=== PATIENT | female | born 1955 | race Caucasian/White ===

== ENCOUNTER → 2016-09-05 | Outpatient (CLI) | payer OTHER ==
[~2016-09-05] MED LIST: ACAR50TA9 PO; ASPI81TA28 PO; ATV5X PO; FURO40TA3 PO; GLC500 PO; GLUCTAB7 PO; HYDR-3419 PO; INSDGI SQ; LEVO25TA PO; LEVO50TA PO; MAGN400T6 PO; METO25TA56 PO; MULTTAB58 PO; OMEG12006 PO; OMEP20CA9 PO; PRM/45 PO; RMR15 PO; SIMV40TA4 PO; SITA50TA3 PO; SOTA160T PO; WARF5TAB90 PO; [UNRECOGNIZED DRUG - CODE] PO; lovaza PO
[2016-09-05 14:43] LABS: PROTHROMBIN TIME (PATIENT) 22.1 SECONDS (9.0-12.0)
== END | disposition home or self-care (01) ==
LOC: C.LAB1850 13:05
PROVIDERS: ATTEND Internal Medicine Cardiovascular Disease
DX: I48.0 Paroxysmal atrial fibrillation (principal)

== ENCOUNTER → 2017-05-09 | Outpatient (CLI) | payer OTHER ==
[2017-05-09 13:41] LABS: CHOLESTEROL/HDL RATIO 3.4
== END | disposition home or self-care (01) ==
LOC: C.LAB1850 10:14
PROVIDERS: ATTEND Internal Medicine Cardiovascular Disease
DX: E78.00 Pure hypercholesterolemia, unspecified (principal); I10 Essential (primary) hypertension; I48.91 Unspecified atrial fibrillation

== ENCOUNTER → 2017-05-19 | Outpatient (CLI) | payer OTHER ==
--- NOTE | 2017-05-20 07:41 | MAMMOGRAPHY REPORT ---
BILATERAL DIGITAL SCREENING MAMMOGRAM TOMOSYNTHESIS WITH CAD: 05/19/2017 CLINICAL HISTORY: Routine screening. Patient has no complaints. TECHNIQUE: Breast tomosynthesis in addition to standard 2D mammography was performed. Current study was also evaluated with a Computer Aided Detection (CAD) system. COMPARISON: Comparison is made to exams dated: 05/16/2016 mammogram, 09/14/2012 mammogram, 09/05/2011 ma mmogram - [facility], 05/09/2009, and 05/01/2009. BREAST COMPOSITION: There are scattered areas of fibroglandular density in both breasts. FINDINGS: There are scattered benign rim and punctate calcifications in the breasts. Stable intramam rusty lymph node in the right upper outer quadrant. No suspicious mass, architectural distortion or c luster of microcalcifications is seen. IMPRESSION: ACR BI-RADS CATEGORY 1: NEGATIVE There is no mammographic evidence of malignancy. A 1 year screening mammogram is recommended. The pa tient will receive written notification of the results. Approximately 10% of breast cancers are not detected with mammography. A negative mammographic report should not delay biopsy if a clinically suggestive mass is present. Luli Wiley M.D. ay/:05/19/2017 16:09:45 Call Or Contact Centre Manager: Sharee ONEAL(R)(Ann), [facility] letter sent: Normal 1/2 BI-RADS Code: ACR BI-RADS Category 1: Negative
== END | disposition home or self-care (01) ==
LOC: C.MAMM 14:04
PROVIDERS: ATTEND Physician Assistant
DX: Z12.31 Encounter for screening mammogram for malignant neoplasm of breast (principal)

== ENCOUNTER → 2017-05-23 | Outpatient (CLI) | payer OTHER ==
[2017-05-23 15:41] LABS: INR 2.7 (0.9-1.1); PROTHROMBIN TIME (PATIENT) 30.5 SECONDS (9.0-12.0)
== END | disposition home or self-care (01) ==
LOC: C.LAB1850 14:19
PROVIDERS: ATTEND Internal Medicine Cardiovascular Disease
DX: I48.91 Unspecified atrial fibrillation (principal)

== ENCOUNTER → 2017-07-29 | Outpatient (CLI) | payer OTHER ==
[~2017-07-29] MED LIST changes: +ACAR100T2 PO; -[UNRECOGNIZED DRUG - CODE] PO
[2017-07-29 13:20] LABS: INR 2.6 (0.9-1.1); PROTHROMBIN TIME (PATIENT) 26.3 SECONDS (9.0-12.0)
== END | disposition home or self-care (01) ==
LOC: C.LAB1850 12:15
PROVIDERS: ATTEND Internal Medicine Cardiovascular Disease
DX: I48.91 Unspecified atrial fibrillation (principal)

== ENCOUNTER → 2017-09-10 | Outpatient (CLI) | payer OTHER ==
[2017-09-10 16:49] LABS: INR 2.7 (0.9-1.1)
== END | disposition home or self-care (01) ==
LOC: C.LAB1850 15:49
PROVIDERS: ATTEND Internal Medicine Cardiovascular Disease
DX: I48.91 Unspecified atrial fibrillation (principal)

== ENCOUNTER → 2017-11-04 | Outpatient (CLI) | payer OTHER | END | disposition home or self-care (01) | LOC: C.LAB1850 11:01 | PROVIDERS: ATTEND Internal Medicine Cardiovascular Disease | DX: E78.00 Pure hypercholesterolemia, unspecified (principal); I10 Essential (primary) hypertension ==

== ENCOUNTER 2024-05-04 17:28 | Inpatient (IN) ==
--- NOTE | 2024-05-04 18:25 | CT Scan Report ---
CT head/brain wo con CLINICAL HISTORY: altered mental status Technique: Contiguous axial CT images of the head were acquired from the base of the skull to the zain arelis without intravenous contrast administration. Images were viewed in brain, subdural and bone [facility]. Automated dose lowering techniques and/or adjustment according to patient size were utilized for this exam. Comparison: Comparison is made to CT head 02/21/2024 Findings: The ventricles, basal cisterns, and cerebral sulci are normal. There is no acute intracranial hemorrh age or evidence of acute territorial infarction. Neither mass effect, shift of the midline structures , nor abnormal extra-axial fluid collections are shown. Focal encephalomalacia in the right parietal lobe is unchanged. Imaged portions of the paranasal sinuses and mastoid air cells are clear. The orbits appear normal. There are no acute fractures of the calvaria or scalp swelling. Impression: No acute intracranial hemorrhage, no evidence of acute territorial infarction or other acute intracra nial disease process. ACT 112: Negative or not required by law. Electronically signed by: Bandar Jay M.D. 05/04/2024 6:23 PM
[2024-05-04 18:36] LABS: Basophils # (auto) 0.07 K/uL (0.00-0.20); Eosinophils # (auto) 0.38 K/uL (0.00-0.50); Eosinophils % (auto) 5.4 %; Hematocrit (blood only) 42.2 % (37.0-47.0); Hemoglobin 13.6 g/dl (12.0-16.0); Immature Granulocytes # (auto) 0.02 K/uL (0.01-0.20); Immature Granulocytes % (auto) 0.3 %; Lymphocytes # (auto) 1.95 K/uL (1.20-3.40); Lymphocytes % (auto) 27.7 %; Mean Corpuscular Hgb Conc 32.2 g/dL (32.0-36.0); Mean Platelet Volume 11.4 fL (9.4-12.4); Monocytes # (auto) 0.45 K/uL (0.11-0.59); Monocytes % (auto) 6.4 %; Neutrophils # (auto) 4.18 K/uL (1.40-6.50); Neutrophils % (auto) 59.2 %; Platelet Count 207 K/uL (130-400); RDW Coefficient of Variation 14.1 % (11.5-14.5); RDW Standard Deviation 47.7 fL (36.4-46.3); Red Blood Count 4.54 M/uL (4.20-5.40); White Blood Count 7.05 K/ul (4.8-10.8)
--- NOTE | 2024-05-04 18:43 | XRay Report ---
XR chest 1V not portable CLINICAL HISTORY: AMS TECHNIQUE: Single frontal radiograph of the chest was obtained. Comparison: Comparison is made to chest radiograph 02/21/2024 FINDINGS: No lines and tubes are seen. Cardiomegaly is noted. The aortic arch is calcified. The lungs are clear . No evidence of pleural effusion or pneumothorax. IMPRESSION: No acute chest disease. Cardiomegaly is noted. ACT 112: Negative or not required by law. Electronically signed by: Bandar Jay M.D. 05/04/2024 6:41 PM
[2024-05-04 18:50] LABS: Alanine Aminotransferase 14 U/L (7-52); Albumin Globulin Ratio 1.8 (0.9-2); Albumin Level 4.6 gm/dl (3.4-5.0); Alkaline Phosphatase 85 U/L (34-104); Anion Gap 7 (3-11); Aspartate Aminotransferase 23 U/L (13-39); BUN Creatinine Ratio 27.2 (10-20); Bilirubin,Total 0.4 mg/dl (0.2-1.0); Blood Urea Nitrogen 25 mg/dl (6-23); Calcium 9.8 mg/dl (8.6-10.3); Carbon Dioxide 28 mmol/L (21-32); Chloride 103 mmol/L (98-107); Est GFR (African American) 72.6 ml/min; Est GFR (Non-African American) 62.6 ml/min; Globulin 2.5 gm/dl (2.5-4.0); Glucose 157 mg/dl (70-99(Fasting)); Potassium 5.1 mmol/L (3.5-5.1); Sodium 138 mmol/L (136-145); Total Protein 7.1 gm/dl (6.0-8.3)
[2024-05-04 19:03] LABS: INR 1.1 (0.9-1.1); Partial Thromboplastin Ratio 1.1; Partial Thromboplastin Time 30 Seconds (21-31); Prothrombin Time 11.5 Seconds (9.0-12.0)
--- NOTE | 2024-05-04 19:58 | Emergency Department Note ---
Impression & Plan AMS (altered mental status), Hallucinations ED Provider Note NAME: SANDRA LIVINGSTON AGE: 69 SEX: F : 1955 ARRIVES VIA: Walk-In INFORMANT: Patient, the patient's granddaughter ED PROVIDER(S): Paco Harry DO CHIEF COMPLAINT: Altered mental status HPI: The patient is a 69-year-old female who presented to the emergency department for an evaluation of altered mental status. The patient presented with her granddaughter. Apparently the patient's been having similar problems over the course the last several months but it seems to be worsening especially over the last week. Today the patient was walking around hallucinating. The patient has a history of a stroke. The patient has been compliant with her outpatient medications although her granddaughter is unsure if she is taking more than her usual prescribed doses. There is no reported vomiting or fever. There is been no reported chest pain or difficulty breathing. ROS: See above HPI for pertinent positives & negatives. A total of 10 systems reviewed and were otherwise negative. PAST MEDICAL HISTORY: See Below PAST SURGICAL HISTORY: See Below FAMILY HISTORY: See Below SOCIAL HISTORY: See Below HOME MEDICATIONS: See Below ALLERGIES: See Below VITALS: See Below PHYSICAL EXAMINATION: GENERAL: Patient is awake alert in no acute distress patient is resting comfortably and showing no signs of anxiety EYES: The conjunctivae are clear. The pupils are round and reactive. EARS, NOSE, MOUTH AND THROAT: The nose is without any evidence of any deformity. NECK: The neck is nontender and supple. RESPIRATORY: Normal respiratory effort is noted there is no evidence of wheezing rhonchi or rales CARDIOVASCULAR: Irregular heart sounds were noted to auscultation. There is no definite murmur. GASTROINTESTINAL: The abdomen is soft. Abdomen is nontender. MUSCULOSKELETAL/EXTREMITIES: There is no evidence of gross deformity full range of motion is noted in the hips and shoulders. SKIN: There is no obvious evidence of any rash. There are no petechiae, pallor or cyanosis noted. NEUROLOGIC: Patient is awake alert and oriented to person and place only. She is not oriented to time. She does recognize her granddaughter but is slow to produce her granddaughter's name. The patient has symmetric strength but it is diminished bilaterally. Speech was soft but clear. MEDICAL DECISION MAKING: The patient is a 69-year-old female who presented to the emergency department with family for an evaluation of altered mental status. It would appear the patient is most likely suffering from worsening dementia but over the last few days she has had some changes to her confusion. She is starting to have some hallucinations. This is a new finding for her. I discussed the patient's laboratory and radiographic studies with the family. They are very afraid for her safety as she normally manages herself at home. She gives herself her own medications. For this reason I discussed the patient's condition with the on- call [facility] hospitalist. They have agreed to evaluate the patient in the emergency department for further management and disposition. The patient did not appear to have signs of urinary tract infection. Vital signs are reassuring. Triage Nursing notes reviewed. Prior medical records reviewed Vital Signs: reviewed and remarkable for no significant abnormalities Differential diagnosis: Infection, hypoglycemia, electrolyte abnormalities, overdose, toxicologic, cardiac sources, intracerebral event, neurologic, trauma, as well as other pathologies. ER treatment provided: See below Diagnostics interpreted by me: ECG: EKG was obtained in the emergency department. My interpretation is atrial fibrillation at 62 bpm. There is no PVCs. Nonspecific ST segment abnormalities were noted with poor R wave progression. This was compared to a tracing from February 21, 2024. No changes were noted. Cardiac Monitoring: An order was placed for continuous cardiac monitoring. The monitor shows a rate of 61 bpm with atrial fibrillation. Laboratory studies: As stated above and show below. Imaging studies: See below. Radiographic imaging was reviewed by myself Consultation(s): I discussed this case with Dr. Kinney [facility]. Past Med/Surg History Problem List (Updated 05/05/24 @ 00:20 by Paco Harry DO) Hallucinations (Acute) AMS (altered mental status) (Acute) Confusion Chronic diastolic CHF (congestive heart failure) Stroke syndrome Microalbuminuria Encounter for health maintenance examination Migraines (Chronic) Acid reflux (Chronic) Anticoagulant long-term use (Chronic) Anxiety (Chronic) Atrial fibrillation (Chronic) Carpal tunnel syndrome (Chronic) Cognitive and behavioral changes (Chronic) Diabetes mellitus (Chronic) Tirso-neglect of left side (Chronic) History of right MCA stroke (Chronic) left sided tirso-neglect Hypercholesterolemia (Chronic) Hypertension (Chronic) Hypothyroidism (Chronic) Left-sided visual neglect (Chronic) Mitral insufficiency (Chronic) Mitral valve disorder (Chronic) Ureteral calculus (Chronic) Medical History Low hemoglobin Transaminitis Accidental overdose Depression Headache Stone, kidney Hallucination, visual Altered mental status Accidental drug ingestion Acute confusion Paronychia due to ingrown nail Ingrowing nail, right great toe CVA (cerebral vascular accident) CHF (congestive heart failure) Hypomagnesemia Shortness of breath CVA (cerebral vascular accident) Surgical History S/P wrist surgery Family History Mother Myocardial infarction Other FHx: heart disease FHx: hypertension Family history of diabetes mellitus Family history of kidney stones Denies family history of Ovarian cancer Prostate cancer Breast cancer Colorectal cancer Social History Smoking Status: Never smoker Second Hand Exposure: No; Hx Alcohol Use: No Hx Substance Use: No Preferred Language: Kosovan Communication Ability: Impaired Visual Impairment: No Limitations Hearing Ability: Normal [employer] Machine Operator Required: No Beliefs That Will Affect Care: None marital status: Current Living Situation: Alone current occupational status: retired Feels Safe at Home: Yes Childhood Exposure to Second-Hand Smoke: No Dental Care, Regularly: No Physical Activity Frequency: Does not Exercise Seatbelt Use: always Sunscreen Use: No Assistive Devices: Cane Allergies Allergies Allergy/AdvReac Type Severity Reaction Status Date / Time adhesive Allergy Intermediate LOCAL Verified 04/14/24 11:07 BLISTERS AND SKIN TEARING Home Meds Home Medications Medication Instructions Recorded Confirmed cholecalciferol (vitamin D3) 25 1,000 unit PO DAILY 03/01/19 05/04/24 mcg (1,000 unit) tablet fish oil-dha-epa 1,200 mg-144 1 cap PO AMHS 03/01/19 05/04/24 mg-216 mg capsule magnesium oxide 400 mg PO BID 03/01/19 05/04/24 aspirin 81 mg tablet,delayed 81 mg PO .DAILY @ NOON 12/17/20 05/04/24 release mirtazapine 15 mg tablet 15 mg PO HS 02/21/24 05/04/24 buspirone 7.5 mg tablet 7.5 mg PO AMHS 05/04/24 05/04/24 qcfhumtvamx-vrsdfaeeu-sgz C-Mn 1 cap PO BID 05/04/24 05/04/24 capsule (Glucosamine-Chondroitin Complex capsule) levothyroxine 50 mcg tablet 50 mcg PO DAILYBB 05/04/24 05/04/24 lisinopril 2.5 mg tablet 2.5 mg PO QAM 05/04/24 05/04/24 magnesium chloride 64 mg 64 mg PO BID 05/04/24 05/04/24 tablet,extended release metoprolol tartrate 100 mg tablet 100 mg PO AMHS 05/04/24 05/04/24 chrdnnre-xvrf-lmfi 8 mg-folic 400 1 tab PO .DAILY AT NOON 05/04/24 05/04/24 mcg-K 50 mcg-lutein 300 mcg tablet (Centrum Silver Women) pantoprazole 40 mg tablet,delayed 40 mg PO QAM 05/04/24 05/04/24 release sertraline 100 mg tablet 100 mg PO QPM 05/04/24 05/04/24 Previous Rx's Medication Instructions Recorded blood-glucose meter (Blood Glucose #1 ea 11/30/19 Monitoring kit) lancets (OneTouch UltraSoft #100 ea 04/09/22 Lancets) blood sugar diagnostic (Blood #100 ea 06/06/22 Glucose Test strips) pen needle, diabetic 31 gauge x #100 ea 07/31/2212/24" (Unifine Pentips Plus) apixaban 5 mg tablet (Eliquis) 5 mg PO BID #180 tabs 01/09/24 metformin 500 mg tablet 500 mg PO BID #60 tabs 02/03/24 simvastatin 40 mg tablet 40 mg PO HS #90 tabs 03/02/24 Results & Data (ED) Vital Signs Vital Signs - 24 hr 05/04/24 17:40 05/04/24 20:00 05/04/24 20:09 Temperature 36.2 C L Temperature Source Temporal Artery Scan Pulse Rate 76 62 Pulse Rate [Apical] 59 L Pulse Rhythm [Apical] Pulse Strength [Apical] Respiratory Rate 14 20 Respiratory Effort / Characteristics Non-Labored Spontaneous Respiratory Depth Normal Respiratory Pattern Regular Blood Pressure 147/80 H Blood Pressure [Left Arm] 117/88 Blood Pressure Mean 102 Blood Pressure Mean [Left Arm] 97 Blood Pressure Position [Left Arm] Sitting Pulse Oximetry 97 99 Oxygen Delivery Method Room Air Room Air Sepsis Recent Fever Within 48 Hours No Sepsis New/Unexplained Change in Mental Status Yes Sepsis Action Taken by Nursing No Action Required 05/04/24 20:59 Temperature Temperature Source Pulse Rate Pulse Rate [Apical] 61 Pulse Rhythm [Apical] Regular Pulse Strength [Apical] Normal Respiratory Rate 16 Respiratory Effort / Characteristics Non-Labored Spontaneous Respiratory Depth Normal Respiratory Pattern Regular Blood Pressure Blood Pressure [Left Arm] 135/74 Blood Pressure Mean Blood Pressure Mean [Left Arm] 94 Blood Pressure Position [Left Arm] Lying Pulse Oximetry 98 Oxygen Delivery Method Room Air Sepsis Recent Fever Within 48 Hours Sepsis New/Unexplained Change in Mental Status Sepsis Action Taken by Longterm Medications Current Medication List: was personally reviewed by me Laboratory Data Attestation: I reviewed the patient's lab results. 05/04/24 18:00 05/04/24 18:00 Lab Results 05/04/24 05/04/24 05/04/24 Range/Units 17:47 18:00 19:59 WBC 7.05 (4.8-10.8) K/ul RBC 4.54 (4.20-5.40) M/uL Hgb 13.6 (12.0-16.0) g/dl Hct 42.2 (37.0-47.0) % MCV 93.0 (80.0-100.0) fL MCH 30.0 (25.0-34.0) pg MCHC 32.2 (32.0-36.0) g/dL RDW Std Deviation 47.7 H (36.4-46.3) fL RDW Coeff of Katt 14.1 (11.5-14.5) % Plt Count 207 (130-400) K/uL MPV 11.4 (9.4-12.4) fL Immature Gran % (Auto) 0.3 % Neut % (Auto) 59.2 % Lymph % (Auto) 27.7 % [place] % (Auto) 6.4 % Eos % (Auto) 5.4 % Baso % (Auto) 1.0 % Neut # (Auto) 4.18 (1.40-6.50) K/uL Lymph # (Auto) 1.95 (1.20-3.40) K/uL [place] # (Auto) 0.45 (0.11-0.59) K/uL Eos # (Auto) 0.38 (0.00-0.50) K/uL Baso # (Auto) 0.07 (0.00-0.20) K/uL Immature Gran # (Auto) 0.02 (0.01-0.20) K/uL PT 11.5 (9.0-12.0) Seconds INR 1.1 (0.9-1.1) APTT 30 (21-31) Seconds PTT Ratio 1.1 Sodium 138 (136-145) mmol/L Potassium 5.1 (3.5-5.1) mmol/L Chloride 103 (98-107) mmol/L Carbon Dioxide 28 (21-32) mmol/L Anion Gap 7 (3-11) BUN 25 H (6-23) mg/dl Creatinine 0.92 (0.6-1.2) mg/dl Est Cr Clr Drug Dosing Not Reportable Est GFR ( Amer) 72.6 ml/min Est GFR (Non-Af Amer) 62.6 ml/min BUN/Creatinine Ratio 27.2 H (10-20) Glucose 157 H (70-99(Fasting)) mg/dl POC Glucose 155 H (70-99) mg/dl Calcium 9.8 (8.6-10.3) mg/dl Total Bilirubin 0.4 (0.2-1.0) mg/dl AST 23 (13-39) U/L ALT 14 (7-52) U/L Alkaline Phosphatase 85 (34-104) U/L Total Protein 7.1 (6.0-8.3) gm/dl Albumin 4.6 (3.4-5.0) gm/dl Globulin 2.5 (2.5-4.0) gm/dl Albumin/Globulin Ratio 1.8 (0.9-2) Urine Color Yellow Urine Appearance Clear (Clear) Urine pH 6.5 (4.5-7.5) Ur Specific [place] 1.017 (1.000-1.030) Urine Protein Negative (Negative) Urine Glucose (UA) Negative (Negative) Urine Ketones Negative (Negative) Urine Blood Negative (Negative) Urine Nitrite Negative (Negative) Urine Bilirubin Negative (Negative) Urine Urobilinogen Negative (Negative) Ur Leukocyte Esterase Trace H (Negative) Urine WBC (Auto) 0-5 (0-5) /hpf Urine RBC (Auto) 0-2 (0-2) /hpf U Hyaline Cast (Auto) 0-2 (0-2) /lpf U Epithel Cells (Auto) 0-2 (0-2) /hpf Urine Bacteria (Auto) None Seen (None Seen) Administered Medications Discontinued Medications Gadobutrol (Gadobutrol 65ml Vial) 8 ml IV ONCE ONE Stop: 05/04/24 23:44 Last Admin: 05/04/24 23:43 Dose: 8 ml Documented By: EKTA Ioversol (Optiray 320 125ml) 119 ml IV ONCE ONE Stop: 05/04/24 23:14 Last Admin: 05/04/24 23:14 Dose: 119 ml Documented By: SPIKE Lorazepam (Lorazepam 0.5 Mg Tab) 0.5 mg PO NOW STA Stop: 05/04/24 22:10 Last Admin: 05/04/24 22:55 Dose: 0.5 mg Documented By: Imaging Data Attestation: I personally reviewed and interpreted this imaging study as follows: My Impression: 1 view chest x-ray was obtained in the emergency department. My interpretation was no free air or definite infiltrate, final report below. CT the brain was obtained in the emergency department. My interpretation is no intracranial hemorrhage or mass effect, final report below. Radiologist's Impression: Chest X-Ray 05/04/24 17:48 XR chest 1V not portable CLINICAL HISTORY: AMS TECHNIQUE: Single frontal radiograph of the chest was obtained. Comparison: Comparison is made to chest radiograph 02/21/2024 FINDINGS: No lines and tubes are seen. Cardiomegaly is noted. The aortic arch is calcified. The lungs are clear. No evidence of pleural effusion or pneumothorax. IMPRESSION: No acute chest disease. Cardiomegaly is noted. ACT 112: Negative or not required by law. Electronically signed by: Bandar Jay M.D. 05/04/2024 6:[address] 05/04/24 17:48 CT head/brain wo con CLINICAL HISTORY: altered mental status Technique: Contiguous axial CT images of the head were acquired from the base of the skull to the vertex without intravenous contrast administration. Images were viewed in brain, subdural and bone windows. Automated dose lowering techniques and/or adjustment according to patient size were utilized for this exam. Comparison: Comparison is made to CT head 02/21/2024 Findings: The ventricles, basal cisterns, and cerebral sulci are normal. There is no acute intracranial hemorrhage or evidence of acute territorial infarction. Neither mass effect, shift of the midline structures, nor abnormal extra-axial fluid collections are shown. Focal encephalomalacia in the right parietal lobe is unchanged. Imaged portions of the paranasal sinuses and mastoid air cells are clear. The orbits appear normal. There are no acute fractures of the calvaria or scalp swelling. Impression: No acute intracranial hemorrhage, no evidence of acute territorial infarction or other acute intracranial disease process. ACT 112: Negative or not required by law. Electronically signed by: Bandar Jay M.D. 05/04/2024 6:23 PM Discharge Plan Visit Data Chief Complaint: Confusion Stated Complaint: CONFUSION, DEHYDRATED ED Provider: Paco Harry Discharge Problem: AMS (altered mental status), Hallucinations Patient Disposition: Being Evaluated by Hospitalist Discharge Instructions Interventions: ED Discharge Assessment Last Done: 05/04/24 23:02 Discharge Problem: AMS (altered mental status) Qualifiers: Altered mental status type: unspecified Qualified Code(s): R41.82 - Altered mental status, unspecified
[2024-05-04 20:11] LABS: Appearance Urine Clear (Clear); Bacteria Urine Automated None Seen (None Seen); Bilirubin Urine Negative (Negative); Blood Urine Negative (Negative); Cast Urine Automated 0-2 /lpf (0-2); Color Urine Yellow; Epithelial Cell Urine Auto 0-2 /hpf (0-2); Glucose Urine UA Negative (Negative); Ketones Urine Negative (Negative); Leukocyte Esterase Urine Trace (Negative); Nitrite Urine Negative (Negative); Protein Urine Negative (Negative); RBC Urine Automated 0-2 /hpf (0-2); Specific Gravity Urine 1.017 (1.000-1.030); Urobilinogen Urine Negative (Negative); WBC Urine Automated 0-5 /hpf (0-5); pH Urine 6.5 (4.5-7.5)
--- NOTE | 2024-05-04 20:52 | History & Physical Report ---
Date of Service May 04, 2024 Assessment & Plan (1) Confusion: Plan: Likely progressive dementia vs polypharamacy/accidental overdose of home medications. Stroke scale - 1. Will complete stroke r/o - MRI Brain with/without and MRA Head and Neck with/without. With history of stroke and memory issues there is likely an underlying dementia. Patient on multiple mood medications - sertraline, mirtazpine, buspar. Accidentally taking more of these meds than prescribed could explain symptoms. Patient may require more assistance than she currently has as she lives alone. Family would like to discuss possible placement, but have not discussed this with the patient. PT/OT, CM consult stroke r/o ordered minimize polypharmacy if able (2) Cognitive and behavioral changes: Plan: See above (3) Diabetes mellitus: Plan: On metformin 500 mg BID. Last HbA1c from 04/2023 - 6.3. Recheck. Will do SSI insulin while inpatient. No basal dosing ordered - can add if persistently elevated. AM HbA1c (4) History of right MCA stroke: Plan: Has residual left sided hemineglect. No change from baseline. Continue ASA and statin therapy. AM lipids ordered. AM lipids, HbA1c Plan Anxiety: continue home meds, - buspar, sertraline, mirtazapine A fib: continue metoprolol, apixaban Hypothyroidism: continue levothyroxine GERD: continue pantoprazole HTN: patient on lisinopril 2.5 mg for HTN, continue for now Code status: full, did discuss with patient, but she was unsure about her wishes, once less confused would repeat code status discussion DVT ppx: Mu MO: Heart Healthy after passes dysphagia screen, IVF NSS @ 80 mL/hr x 1 L Dispo: Tele unit History of Present Illness Primary Care Provider: Keanu Lindo MD 69 y/o with a PMHx of right CVA with left sided deficits, anxiety, hypothyroidism, DM, and a fib brought here by family for worsening confusion. Patient with increased memory issues and hallucinations over the last week. Found wandering outside looking for her granddaughter, but thinking of her as a small child. Has also been seeing her who 4 years ago. Patient does not report these to me during our interview. She is unsure why she was brought in to the hospital and would like to go home. Patient lives alone and family is involved, but no one can be with her all of the time. Patient has been admitted previously for accidental overdose as she will take her medications inappropriately. She does have the pill packs, but she may still be taking more of her medication than prescribed. Patient denies any fevers, chills, CP, SOB, abdominal pain, headaches, vision changes, nausea/vomiting, constipation, dysuria, urinary frequency. The granddaughter reports that she has long standing left sided weakness as a sequelae of her prior stroke. No new neurological deficits. Does have memory issues, but believes that the hallucinations are relatively new. Is concerned that she took more of her medicine than she should have. Allergies Allergy/AdvReac Type Severity Reaction Status Date / Time adhesive Allergy Intermediate LOCAL Verified 04/14/24 11:07 BLISTERS AND SKIN TEARING Home Medications Medication Instructions Recorded Confirmed Type cholecalciferol (vitamin D3) 25 1,000 unit PO DAILY 03/01/19 05/04/24 History mcg (1,000 unit) tablet fish oil-dha-epa 1,200 mg-144 1 cap PO AMHS 03/01/19 05/04/24 History mg-216 mg capsule magnesium oxide 400 mg PO BID 03/01/19 05/04/24 History blood-glucose meter (Blood Glucose #1 ea 11/30/19 05/04/24 Rx Monitoring kit) aspirin 81 mg tablet,delayed 81 mg PO .DAILY @ NOON 12/17/20 05/04/24 History release lancets (OneTouch UltraSoft #100 ea 04/09/22 05/04/24 Rx Lancets) blood sugar diagnostic (Blood #100 ea 06/06/22 05/04/24 Rx Glucose Test strips) pen needle, diabetic 31 gauge x #100 ea 07/31/22 05/04/24 Rx 5/16" (Unifine Pentips Plus) apixaban 5 mg tablet (Eliquis) 5 mg PO BID #180 tabs 01/09/24 05/04/24 Rx metformin 500 mg tablet 500 mg PO BID #60 tabs 02/03/24 05/04/24 Rx mirtazapine 15 mg tablet 15 mg PO HS 02/21/24 05/04/24 History simvastatin 40 mg tablet 40 mg PO HS #90 tabs 03/02/24 05/04/24 Rx buspirone 7.5 mg tablet 7.5 mg PO AMHS 05/04/24 05/04/24 History hiaaxpkowmp-mrwyfoarf-amn C-Mn 1 cap PO BID 05/04/24 05/04/24 History capsule (Glucosamine-Chondroitin Complex capsule) levothyroxine 50 mcg tablet 50 mcg PO DAILYBB 05/04/24 05/04/24 History lisinopril 2.5 mg tablet 2.5 mg PO QAM 05/04/24 05/04/24 History magnesium chloride 64 mg 64 mg PO BID 05/04/24 05/04/24 History tablet,extended release metoprolol tartrate 100 mg tablet 100 mg PO AMHS 05/04/24 05/04/24 History ygmolbwh-ijzh-jtwt 8 mg-folic 400 1 tab PO .DAILY AT NOON 05/04/24 05/04/24 History mcg-K 50 mcg-lutein 300 mcg tablet (Centrum Silver Women) pantoprazole 40 mg tablet,delayed 40 mg PO QAM 05/04/24 05/04/24 History release sertraline 100 mg tablet 100 mg PO QPM 05/04/24 05/04/24 History Past Med/Surg History Problem List (Updated 05/05/24 @ 00:20 by Paco Harry DO) Hallucinations (Acute) AMS (altered mental status) (Acute) Confusion Chronic diastolic CHF (congestive heart failure) Stroke syndrome Microalbuminuria Encounter for health maintenance examination Migraines (Chronic) Acid reflux (Chronic) Anticoagulant long-term use (Chronic) Anxiety (Chronic) Atrial fibrillation (Chronic) Carpal tunnel syndrome (Chronic) Cognitive and behavioral changes (Chronic) Diabetes mellitus (Chronic) Tirso-neglect of left side (Chronic) History of right MCA stroke (Chronic) left sided tirso-neglect Hypercholesterolemia (Chronic) Hypertension (Chronic) Hypothyroidism (Chronic) Left-sided visual neglect (Chronic) Mitral insufficiency (Chronic) Mitral valve disorder (Chronic) Ureteral calculus (Chronic) Medical History Low hemoglobin Transaminitis Accidental overdose Depression Headache Stone, kidney Hallucination, visual Altered mental status Accidental drug ingestion Acute confusion Paronychia due to ingrown nail Ingrowing nail, right great toe CVA (cerebral vascular accident) CHF (congestive heart failure) Hypomagnesemia Shortness of breath CVA (cerebral vascular accident) Surgical History S/P wrist surgery Family History Mother Myocardial infarction Other FHx: heart disease FHx: hypertension Family history of diabetes mellitus Family history of kidney stones Denies family history of Ovarian cancer Prostate cancer Breast cancer Colorectal cancer Social History Smoking Status: Never smoker Second Hand Exposure: No; Do You Dip or Chew Tobacco: No; Hx Alcohol Use: No Hx Substance Use: No Preferred Language: Palauan Communication Ability: Effective Visual Impairment: No Limitations Hearing Ability: Normal Automatic Vulcanizing Lead Operator Required: No Beliefs That Will Affect Care: None marital status: Current Living Situation: Alone current occupational status: retired Other Information That Helps Us Care for You: No Feels Safe at Home: Yes Safety Concerns: Feels Safe At This Time Childhood Exposure to Second-Hand Smoke: No Dental Care, Regularly: No Physical Activity Frequency: Does not Exercise Seatbelt Use: always Sunscreen Use: No Assistive Devices: Cane and Glasses Review of Systems 2 Review of Systems: See HPI Physical Exam 2 Physical Exam: Gen: well appearing patient in NAD HEENT: AT NC MMM Resp: CTAB no wheezing no increased work of breathing CV: RRR no m/r/g clinically well perfused, no peripheral edema Abd: +BS soft, non-tender, non-distended MSK: no obvious deformities Skin: no rashes or bruising Neuro: alert and oriented Psych: appropriate mood and affect Results & Data Results & Data Vital Signs (Past 12 Hours) Vital Signs Temp Pulse Pulse Resp BP BP Pulse Ox 05/04/24 20:09 62 05/04/24 20:00 59 L 20 117/88 99 05/04/24 17:40 36.2 C L 76 14 147/80 H 97 O2 Del Method 05/04/24 20:09 05/04/24 20:00 Room Air 05/04/24 17:40 Room Air Laboratory Results 05/04/24 18:00 05/04/24 18:00 Diagnostic Findings Chest X-Ray 05/04/24 17:48 FINDINGS: No lines and tubes are seen. Cardiomegaly is noted. The aortic arch is calcified. The lungs are clear. No evidence of pleural effusion or pneumothorax. IMPRESSION: No acute chest disease. Cardiomegaly is noted. Head CT 05/04/24 17:48 Findings: The ventricles, basal cisterns, and cerebral sulci are normal. There is no acute intracranial hemorrhage or evidence of acute territorial infarction. Neither mass effect, shift of the midline structures, nor abnormal extra-axial fluid collections are shown. Focal encephalomalacia in the right parietal lobe is unchanged. Imaged portions of the paranasal sinuses and mastoid air cells are clear. The orbits appear normal. There are no acute fractures of the calvaria or scalp swelling. Impression: No acute intracranial hemorrhage, no evidence of acute territorial infarction or other acute intracranial disease process. Supervising Physician Co-Signing Physician Notes Attending addendum: I have physically seen this patient, have supervised the medical residents activities, and agree with the H&P unless as otherwise noted. Assessment and Plan: Altered mental status/confusion/hallucinations- Potential contributing factors including not limited to: Progressive dementia, polypharmacy accidental overdose on medications, TIA versus stroke CT scan head negative Order MRI studies as noted Consult PT/OT Stroke without tPA order set Diabetes mellitus- Hold metformin Most recent hemoglobin A1c of 05/03 was 6.3 Placed on Accu-Cheks log SSI Check hemoglobin A1c in the morning History of right MCA CVA/left-sided hemineglect- At baseline Continue aspirin Atrial fibrillation/hypertension- Admit to monitored bed Continue apixaban, metoprolol Hold lisinopril due to potassium of 5.1 NSS at 80 mL/h x 1 L Recheck laboratories in a.m. Resident Activity Tracking Resident Involvement: Resident Care Provided Care Provided: Adult Hospital Medicine
[2024-05-04] MEDS: LORazepam 0.5 MG TAB PO STA (22:55)
[2024-05-04] MEDS: OPTIRAY 320 125ml IV ONE (23:14)
[2024-05-04] MEDS: GADOBUTROL 65ML VIAL IV ONE (23:43)
[2024-05-05] MEDS ORDERED: GLUCOSE 40% GEL 15 GM TUBE PO PRN (00:14)
[2024-05-05] MEDS ORDERED: DEXTROSE 50% 50 ML SYRINGE IV PRN (00:14)
[2024-05-05] MEDS ORDERED: CARBOHYDRATES FOR HYPOGLYCEMIA PO PRN (00:14)
[2024-05-05] MEDS ORDERED: GLUCOSE 10 TAB/TUBE PO PRN (00:14)
[2024-05-05] MEDS ORDERED: GLUCAGON FOR INJ 1 MG VIAL SQ PRN (00:14)
[2024-05-05] MEDS: SODIUM CHLORIDE 0.9% 1,000 ML IV SCH (00:58)
[2024-05-05] MEDS: APIXABAN 5 MG TABLET PO ONE (01:04)
[2024-05-05] MEDS: ACETAMINOPHEN 500 MG TAB PO PRN (01:04)
--- NOTE | 2024-05-05 01:48 | CT Scan Report ---
Exam(s): CTA HEAD W/WO Contrast IV Amt: 119ml optiray 320 EXAM: CT Angiography Head Without and With Intravenous Contrast CLINICAL HISTORY: Reason for exam: r/o stroke. TECHNIQUE: Axial computed tomographic angiography images of the head without and with intravenous contrast. CTDI is 20 mGy and DLP is 516.47 mGy-cm. Automated exposure control was utilized for the study. A dose lowering technique was utilized adhering to the principles of ALARA. MIP reconstructed images were created and reviewed. CONTRAST: Patient received 119ml optiray 320 of IV contrast COMPARISON: No relevant prior studies available. FINDINGS: VASCULATURE: The dural venous sinuses are patent. Right internal carotid artery: No acute findings. Intracranial segment is patent with no significant stenosis. No aneurysm. Right anterior cerebral artery: Unremarkable. No occlusion or significant stenosis. No aneurysm. Right middle cerebral artery: Unremarkable. No occlusion or significant stenosis. No aneurysm. Right posterior cerebral artery: Unremarkable. No occlusion or significant stenosis. No aneurysm. Right vertebral artery: Unremarkable as visualized. Left internal carotid artery: No acute findings. Intracranial segment is patent with no significant stenosis. No aneurysm. Left anterior cerebral artery: Unremarkable. No occlusion or significant stenosis. No aneurysm. Left middle cerebral artery: Unremarkable. No occlusion or significant stenosis. No aneurysm. Left posterior cerebral artery: Unremarkable. No occlusion or significant stenosis. No aneurysm. Left vertebral artery: Unremarkable as visualized. Basilar artery: Unremarkable. No occlusion or significant stenosis. No aneurysm. HEAD: Brain: No acute findings. Remote ischemic injury of the right frontal, temporal and parietal lobes with encephalomalacia and gliosis. No hemorrhage. No edema. Normal enhancement. Ventricles: Unremarkable. No ventriculomegaly. Bones/joints: No acute fracture. Soft tissues: Unremarkable. Sinuses: Unremarkable as visualized. No acute sinusitis. Mastoid air cells: Unremarkable as visualized. No mastoid effusion. IMPRESSION: Negative CT angiogram of the head. Electronically signed by: Love Quintero MD 05/05/24 01:47 AM
--- NOTE | 2024-05-05 01:54 | CT Scan Report ---
Exam(s): CTA NECK W/WO Contrast IV Amt: 119ml optiray 320 EXAM: CT Angiography Neck With Intravenous Contrast CLINICAL HISTORY: Reason for exam: r/o stroke. TECHNIQUE: Routine carotid CT angiography protocol was performed with intravenous contrast. NASCET criteria using the distal ICAs for comparison were used for evaluation of stenoses. CTDI is 37.37 mGy and DLP is 18.68 mGy-cm. Automated exposure control was utilized for the study. A dose lowering technique was utilized adhering to the principles of ALARA. MIP reconstructed images were created and reviewed. CONTRAST: Patient received 119ml optiray 320 of IV contrast COMPARISON: None. FINDINGS: VASCULATURE: Ectasia of the ascending aorta measuring 34.6 mm in diameter. Right common carotid artery: Unremarkable. No occlusion or significant stenosis. No dissection. Right internal carotid artery: Unremarkable. Extracranial segment is patent with no occlusion or significant stenosis. No dissection. Right external carotid artery: Unremarkable. No occlusion. Right vertebral artery: Unremarkable. No occlusion or significant stenosis. No dissection. Left common carotid artery: Unremarkable. No occlusion or significant stenosis. No dissection. Left internal carotid artery: Unremarkable. Extracranial segment is patent with no occlusion or significant stenosis. No dissection. Left external carotid artery: Unremarkable. No occlusion. Left vertebral artery: Unremarkable. No occlusion or significant stenosis. No dissection. NECK: Bones/joints: Unremarkable. No acute fracture. Soft tissues: Prominent mediastinal and hilar lymph nodes. Prominent cervical lymph nodes. Lung apices: Bronchitis with pneumonitis and mosaic type pattern of pulmonary opacities. CAROTID STENOSIS REFERENCE USING NASCET CRITERIA: % ICA stenosis = (1 - narrowest ICA diameter/diameter of distal cervical ICA) x 100. Mild - <50% stenosis. Moderate - 50-69% stenosis. Severe - 70-94% stenosis. Near occlusion - 95-99% stenosis. Occluded - 100% stenosis. IMPRESSION: Negative CTA neck. Electronically signed by: Love Quintero MD 05/05/24 01:53 AM
--- NOTE | 2024-05-05 02:05 | Magnetic Resonance Report ---
Exam(s): MRI HEAD W/WO Contrast IV Amt: 8cc gadavist EXAM: MR Head Without and With Intravenous Contrast CLINICAL HISTORY: Reason for exam: stroke r/o. TECHNIQUE: Magnetic resonance images of the head/brain without and with intravenous contrast in multiple planes. CONTRAST: Patient received 8cc gadavist of IV contrast COMPARISON: Prior head CT from May 04, 2024. FINDINGS: Brain: Remote ischemic injury of the right temporal, and occipital lobes with encephalomalacia and gliosis. Remote ischemic injury of the right cerebellum. Mild nonspecific white matter changes. The flow voids at the base of the brain are intact. No mass. No hemorrhage. No acute infarct. No evidence of abnormal enhancement. The dural venous sinuses are patent. Ventricles: Unremarkable. No ventriculomegaly. Bones/joints: Unremarkable. No acute fracture. Sinuses: Chronic ethmoid sinusitis. No acute sinusitis. Mastoid air cells: Unremarkable as visualized. No mastoid effusion. Orbits: Bilateral lens replacements. IMPRESSION: No evidence of acute intracranial pathology. Electronically signed by: Love Quintero MD 05/05/24 02:04 AM
[2024-05-05] MEDS: LEVOTHYROXINE SODIUM 50 MCG TABLET PO SCH (05:44)
--- NOTE | 2024-05-05 06:05 | Billing Data ---
Date of Service May 05, 2024 Coding Level of Care Code 14064 INT INP/OBS CARE
[2024-05-05 07:18] LABS: BUN Creatinine Ratio 24.1 (10-20); Calcium 8.9 mg/dl (8.6-10.3); Chol HDL Ratio 2.5 (0-5); Creatinine Clr Calc Pharmacy 71.9 ml/min; Est GFR (African American) 87.3 ml/min; Est GFR (Non-African American) 75.3 ml/min; Potassium 4.6 mmol/L (3.5-5.1)
[2024-05-05 07:24] LABS: Hematocrit (blood only) 35.6 % (37.0-47.0); Mean Corpuscular Hemoglobin 30.4 pg (25.0-34.0); Mean Corpuscular Hgb Conc 33.7 g/dL (32.0-36.0); Mean Corpuscular Volume 90.1 fL (80.0-100.0); Mean Platelet Volume 11.4 fL (9.4-12.4); Platelet Count 177 K/uL (130-400); RDW Standard Deviation 46.6 fL (36.4-46.3); Red Blood Count 3.95 M/uL (4.20-5.40); White Blood Count 5.92 K/ul (4.8-10.8)
[2024-05-05 07:46] LABS: Estimated Average Glucose 151 mg/dl; Hemoglobin A1C 6.9 % (4.5-5.6)
[2024-05-05] MEDS ORDERED: lisinopril 2.5 MG TAB PO SCH (09:00)
[2024-05-05] MEDS: MAGNESIUM OXIDE 400 MG TAB PO SCH (09:36)
[2024-05-05] MEDS: busPIRone 7.5 MG TAB PO SCH (09:36)
[2024-05-05] MEDS: APIXABAN 5 MG TABLET PO SCH (09:36)
[2024-05-05] MEDS: PANTOprazole 40 MG TAB PO SCH (09:37)
[2024-05-05] MEDS: METOPROLOL TARTRATE 100 MG TAB PO SCH (09:37)
[2024-05-05] MEDS: MAGNESIUM CHLORIDE W/CALCIUM 64MG DELAYED REL TAB PO SCH (09:38)
[2024-05-05] MEDS: INSULIN ASPART PER UNIT CHARGE SC SCH (09:44)
[2024-05-05] MEDS: ASPIRIN 81 MG ECTAB PO SCH (12:09)
--- NOTE | 2024-05-05 16:11 | Hospitalist Progress Note ---
Date of Service May 05, 2024 Assessment & Plan (1) Confusion: Plan: Presented with increased confusion and hallucinations over the week leading to admission. She was found wandering outside looking for her granddaughter and said that she saw her to 4 years ago. - Suspect this acute confusion is secondary to polypharmacy/accidental overdose of home medications. Patient's daughter reports that the patient misses doses and/or doubles doses of her medications by accident. - She does take multiple mood medicationssertraline, mirtazapine, BuSpar. Accidentally taking more of these medications and prescribed could explain her symptoms. - Brain MRI, head CT, head and neck CTAs, CXR all unremarkable. Lipid panel WNL. - Patient's acute confusion has resolved, fully alert and oriented at this time. - PT/OT recommending rehab. - Minimize polypharmacy if able. (2) Cognitive and behavioral changes: Plan: See above (3) Diabetes mellitus: Plan: On metformin 500 mg BID at home. - Hgb A1c 6.9% on 05/05 - SI insulin while inpatient. No basal dosing ordered - can add if persistently elevated. (4) History of right MCA stroke: Plan: Has residual left sided hemineglect. No change from baseline. - Continue ASA and statin therapy. - Lipid panel WNL Plan Updated daughter via phone call Updated granddaughter via phone call and at bedside Discussed discharge planning with case management Anxiety: continue home meds, - buspar, sertraline, mirtazapine A fib: continue metoprolol, apixaban Hypothyroidism: continue levothyroxine GERD: continue pantoprazole HTN: patient on lisinopril 2.5 mg for HTN, continue for now Code status: full, did discuss with patient, but she was unsure about her wishes, once less confused would repeat code status discussion DVT ppx: Eliquis Admission and Anticipated Discharge Date Admission Date: May 04, 2024 Subjective Patient seen and evaluated at bedside. She reports feeling "much clearer" today compared to yesterday. She is alert and oriented to person, place, time, event at this time. She reports that she was very confused yesterday, having hallucinations that people on the TV were talking with her. We discussed that I suspect her acute confusion was secondary to polypharmacy, as the confusion is lifted quickly after correct medications have been provided. We also discussed her workup from admission. I called both her daughter and her granddaughter to provide updates via phone call, and then met with the granddaughter at bedside in the afternoon. Daughter reports that the patient misses doses of medicine and/or will double her doses of medication at home. Family is agreeable to rehab if that is what is recommended by PT/OT. Physical Exam Physical Exam: General: No acute distress, nondiaphoretic, well-developed, well-nourished. Skin: The skin was without rashes, erythema, edema, or bruising. Cardiac: Irregularly irregular in the 70s. No murmurs, gallops or rubs appreciated. Pulm: Clear to auscultation bilaterally without wheezes, rales or rhonchi. No respiratory distress. 98% on room air. Abdominal: Soft, nontender, nondistended. Bowel sounds present. Neuro: A&O x4. No focal neurological deficits. Results & Data Results & Data Vital Signs (Past 12 Hours) Vital Signs Temp Pulse Pulse Resp BP Pulse Ox O2 Del Method 05/05/24 15:58 97.3 F L 79 18 138/77 98 Room Air 05/05/24 14:40 79 05/05/24 11:20 97.9 F 65 16 129/76 99 Room Air 05/05/24 07:35 97.5 F L 53 L 18 136/85 99 Room Air 05/05/24 07:20 58 L Laboratory Results Reviewed CBC Reviewed chemistries Reviewed UA Diagnostic Findings Reviewed head and neck CTA Reviewed brain MRI Reviewed head CT Reviewed chest x-ray PG Care Time/CCT Total # of Minutes Spent Total Time Spent with Patient: Total time spent is greater than 50% in coordination of care (as documented) at patient's floor/unit and/or counseling patient: Coding Level of Care Code 17652 SUB INP/OBS CARE 3/50MIN Diagnoses Confusion R41.0 Cognitive and behavioral changes R41.89; R46.89 Diabetes mellitus E11.9 History of right MCA stroke Z86.73
[2024-05-05] MEDS: SERTRALINE HCL 100 MG TABLET PO SCH (21:05)
[2024-05-05] MEDS: SIMVASTATIN 40 MG TAB PO SCH (21:05)
[2024-05-05] MEDS: MIRTAZAPINE TAB 15 MG TAB PO SCH (21:06)
--- NOTE | 2024-05-05 21:36 | Electrocardiogram Report ---
Test Reason : Blood Pressure : */* mmHG Vent. Rate : 62 BPM Atrial Rate : * BPM P-R Int : * ms QRS Dur : 84 ms QT Int : 410 ms P-R-T Axes : * -11 0 degrees QTcB Int : 416 ms Atrial fibrillation Possible Anterior infarct , age undetermined Abnormal ECG When compared with ECG of 21-Feb-2024 08:14, Inverted T waves have replaced nonspecific T wave abnormality in Inferior leads Confirmed by Errol Prince ([id number]) on 05/05/2024 9:36:04 PM Referred By: REFERRED SELF Confirmed By: Errol Prince
[2024-05-06 10:17] LABS: Calcium 9.1 mg/dl (8.6-10.3); Potassium 4.5 mmol/L (3.5-5.1)
[2024-05-06 10:23] LABS: BUN Creatinine Ratio 21.3 (10-20); Creatinine Clr Calc Pharmacy 61.3 ml/min; Est GFR (African American) 70.7 ml/min
--- NOTE | 2024-05-06 16:59 | Hospitalist Progress Note ---
Date of Service May 06, 2024 Assessment & Plan (1) Confusion: Plan: Presented with increased confusion and hallucinations over the week leading to admission. She was found wandering outside looking for her granddaughter and said that she saw her to 4 years ago. - Suspect this acute confusion is secondary to polypharmacy/accidental overdose of home medications. Patient's daughter reports that the patient misses doses and/or doubles doses of her medications by accident. - She does take multiple mood medicationssertraline, mirtazapine, BuSpar. Accidentally taking more of these medications and prescribed could explain her symptoms. - Brain MRI, head CT, head and neck CTAs, CXR all unremarkable. Lipid panel WNL. - Patient's acute confusion has resolved, fully alert and oriented at this time. - PT/OT recommending rehab. Family to decide on rehab versus [facility] upon discharge from the hospital. Case management following. - Minimize polypharmacy if able. (2) Bradycardia: Plan: Bradycardic in the 40s50s, asymptomatic - EKG obtained showed A-fib with slow ventricular response, nonspecific T wave abnormalities - Lyme negative - Held metoprolol - Continue to monitor (3) Diabetes mellitus: Plan: On metformin 500 mg BID at home. - Hgb A1c 6.9% on 05/05 - SI insulin while inpatient. No basal dosing ordered - can add if persistently elevated. (4) History of right MCA stroke: Plan: Has residual left sided hemineglect. No change from baseline. - Continue ASA and statin therapy. - Lipid panel WNL Plan Ordered EKG Ordered Lyme screen Held metoprolol Anxiety: continue home meds, - buspar, sertraline, mirtazapine A fib: continue metoprolol, apixaban Hypothyroidism: continue levothyroxine GERD: continue pantoprazole HTN: patient on lisinopril 2.5 mg for HTN, continue for now Code status: full, did discuss with patient, but she was unsure about her wishes, once less confused would repeat code status discussion DVT ppx: Eliquis Admission and Anticipated Discharge Date Admission Date: May 06, 2024 Subjective Patient seen and evaluated at bedside. She is very tearful today due to not remembering how she got to the hospital. 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 I reminded her that she did not drive to the hospital herself, and that she was quite confused on admission likely from accidental polypharmacy. She reports feeling anxious over not remembering recent events. Additionally, she had bradycardia in the 40s-50s with a couple sinus pauses, but was asymptomatic. She denies lightheadedness, dizziness, fatigue, shortness of breath, chest pain, presyncope. Physical Exam Physical Exam: General: No acute distress, nondiaphoretic, well-developed, well-nourished. Skin: The skin was without rashes, erythema, edema, or bruising. Cardiac: Irregularly irregular in the 70s. No murmurs, gallops or rubs appreciated. Pulm: Clear to auscultation bilaterally without wheezes, rales or rhonchi. No respiratory distress. 95% on room air. Abdominal: Soft, nontender, nondistended. Bowel sounds present. Neuro: A&O x4. No focal neurological deficits. Results & Data Results & Data Vital Signs (Past 12 Hours) Vital Signs Temp Pulse Pulse Resp BP Pulse Ox O2 Del Method 05/06/24 15:54 98.1 F 59 L 16 121/59 L 95 Room Air 05/06/24 11:18 98.1 F 46 L 16 132/74 95 Room Air 05/06/24 08:33 65 05/06/24 07:48 97.7 F 66 16 121/75 95 Room Air Laboratory Results Reviewed chemistries PG Care Time/CCT Total # of Minutes Spent Total Time Spent with Patient: Total time spent is greater than 50% in coordination of care (as documented) at patient's floor/unit and/or counseling patient: Coding Level of Care Code 16248 SUB INP/OBS CARE 3/50MIN Diagnoses Confusion R41.0 Bradycardia R00.1 Diabetes mellitus E11.9 History of right MCA stroke Z86.73
[2024-05-07] MEDS: OLANZapine 10 MG/2.1 ML SDV IM STA (04:44)
[2024-05-07] MEDS: OLANZapine 10 MG/2.1 ML SDV IM ONE (05:47)
--- NOTE | 2024-05-07 05:58 | Electrocardiogram Report ---
Test Reason : Blood Pressure : */* mmHG Vent. Rate : 52 BPM Atrial Rate : 78 BPM P-R Int : * ms QRS Dur : 84 ms QT Int : 468 ms P-R-T Axes : * -33 32 degrees QTcB Int : 435 ms Atrial fibrillation with slow ventricular response Left axis deviation Possible Anterior infarct (cited on or before 04-May-2024) Abnormal ECG When compared with ECG of 04-May-2024 18:02, Nonspecific T wave abnormality has replaced inverted T waves in Inferior leads Confirmed by Errol Prince ([id number]) on 05/07/2024 5:58:07 AM Referred By: REFERRED SELF Confirmed By: Errol Prince
[2024-05-07] MEDS: QUEtiapine FUMARATE 25 MG TABLET PO SCH (09:53)
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
[2024-05-07] MEDS: MELATONIN 3 MG TAB PO PRN (19:31)
[2024-05-07] MEDS ORDERED: METOPROLOL TARTRATE 50 MG TAB PO SCH (21:00)
--- NOTE | 2024-05-08 13:51 | Hospitalist Progress Note ---
Date of Service May 08, 2024 Assessment & Plan (1) Confusion: Plan: Presented with increased confusion and hallucinations over the week leading to admission in the setting of CHRONIC cognitive impairment/dementia. She was found wandering outside looking for her granddaughter and said that she saw her to 4 years ago. - Suspect this acute confusion is secondary to polypharmacy/accidental overdose of home medications +/- progression of dementia. Patient's daughter reports that the patient misses doses and/or doubles doses of her medications by accident. - She does take multiple mood medicationssertraline, mirtazapine, BuSpar. Accidentally taking more of these medications and prescribed could explain her symptoms. - Brain MRI, head CT, head and neck CTAs, CXR all unremarkable. Lipid panel WNL. - Patient's acute confusion has resolved, fully alert and oriented at this time. - PT/OT recommending rehab. Family is stating that they do not want her to go to rehab and she cannot afford [facility]. They are requesting home with home health. - Added Seroquel 25mg BID which she is tolerating. - Discussed with family (both son and daughter) that she is not safe to return home unless she can have 24/7 care - Family in agreement, will discuss amongst themselves and will need to discuss with case management what options are available (2) Bradycardia: Plan: Bradycardic in the 40s50s, asymptomatic - EKG obtained showed A-fib with slow ventricular response, nonspecific T wave abnormalities - Lyme negative - RESOLVED, believe this was due to her taking too much of her metoprolol - Now 80-100s at rest and 110-120s with activity, afib on monitor - Metoprolol Tartrate resumed at lower dose of 25mg BID with parameters, may need titrated depending on BP and HR (3) Diabetes mellitus: Plan: On metformin 500 mg BID at home. - Hgb A1c 6.9% on 05/05 - SI insulin while inpatient. No basal dosing ordered - can add if persistently elevated. (4) History of right MCA stroke: Plan: Has residual left sided hemineglect. No change from baseline. - Continue ASA and statin therapy. - Lipid panel WNL Plan Anxiety: continue home meds, - buspar, sertraline, mirtazapine A fib: continue metoprolol, apixaban Hypothyroidism: continue levothyroxine GERD: continue pantoprazole HTN: patient on lisinopril 2.5 mg for HTN, continue for now Code status: full, did discuss with patient, but she was unsure about her wishes, once less confused would repeat code status discussion DVT ppx: Eliquis Lengthy conversation with daughter and son via phone today and explained that she is not safe to return home without having 24/7 supervision, otherwise will need placement with memory support. Son is in agreement. Will discuss with his sister and ultimately need to d/w case management to determine what options are available and formulate discharge plan. Admission and Anticipated Discharge Date Admission Date: May 06, 2024 Supervising Physician Co-Signing Physician Notes Attending Attestation - Chart reviewed, care plan d/w ADALBERTO Perez. I agree w/ the huggins components of her documentation. TSH in February 2024 was mildly high; repeat in am. Kash Hubbard Masha is a 69 yo F who was seen today on morning rounds. She is awake, alert and oriented this morning. She has insight into her confusion and feels that she cannot return home alone. She does want to go home to her house and live as she has a cat and dog. She endorses having an aid for 4-hours a day. She is able to recall that her daughter is on vacation. She asks that I contact her son for an update and discharge planning. She denies complaints. Review of Systems Review of Systems: All systems reviewed and are unremarkable except as noted in HPI and below. Denies fever, chills, fatigue, headache, nasal congestion, sore throat, cough, chest pain, shortness of breath, palpitations, orthopnea, PND, abdominal pain, n/v/d, constipation, dysuria, hematuria, frequency, back pain, joint pain or swelling, easy bruising or bleeding, skin lesions or rashes. Physical Exam Physical Exam: GENERAL: 69 yo Well-developed, well-nourished WF. Alert&Ox3. NAD. LUNGS: Clear to auscultation bilaterally. No W/R/R. CARDIOVASCULAR: Irregular with CVR ABDOMEN: Soft, non-tender and non-distended. BS normoactive x 4 quad. EXTREMITIES: No edema. Non-tender. Peripheral pulses +2/4. PSYCHIATRIC: Cooperative and pleasant SKIN: Warm, dry, intact. No rashes or lesions. Results & Data Results & Data Vital Signs (Past 12 Hours) Vital Signs Temp Pulse Pulse Resp BP Pulse Ox O2 Del Method 05/08/24 11:54 36.3 C L 93 H 18 127/74 97 Room Air 05/08/24 10:43 77 05/08/24 07:46 36.5 C 78 18 138/85 97 Room Air PG Care Time/CCT Total # of Minutes Spent Total Time Spent with Patient: Total time spent is greater than 50% in coordination of care (as documented) at patient's floor/unit and/or counseling patient: 40 minutes Coding Level of Care Code 94882 SUB INP/OBS CARE 2/35MIN Diagnoses Confusion R41.0 Bradycardia R00.1 Diabetes mellitus E11.9 History of right MCA stroke Z86.73
[2024-05-08] MEDS: METOPROLOL TARTRATE 25 MG TAB PO STA (21:00)
--- NOTE | 2024-05-09 10:18 | Hospitalist Progress Note ---
Date of Service May 09, 2024 Assessment & Plan (1) Confusion: Plan: Presented with increased confusion and hallucinations over the week leading to admission in the setting of CHRONIC cognitive impairment/dementia. She was found wandering outside looking for her granddaughter and said that she saw her to 4 years ago. - Suspect this acute confusion is secondary to polypharmacy/accidental overdose of home medications +/- progression of dementia. Does have hx of missed/double doses - She does take multiple mood medicationssertraline, mirtazapine, BuSpar. - Added Seroquel 25mg BID , increased evening dose to 50mg 05/09 for increased hallucinations/difficulty redirecting - Brain MRI, head CT, head and neck CTAs, CXR all unremarkable. Lipid panel WNL. - Patient's acute confusion has resolved, fully alert and oriented at this time. - PT/OT recommending rehab. Family is stating that they do not want her to go to rehab and she cannot afford [facility]. They are requesting home with home health. - Discussed with family (both son and daughter) that she is not safe to return home unless she can have 24/7 care - Family in agreement, will discuss amongst themselves and will need to discuss with case management what options are available Family asking for ativan, states helps at home. No pharmacy fills or PDMPs notation of ativan prescription. PCP note from February " recommended discontinuing lorazepam and prescription for hydroxyzine take 10 mg on as-needed basis sent to the pharmacy" for anxiety with traveling. - Masha was more difficult to reidrect and emotional when her daughter left this afternoon, walking out to the halls. Was able to redirect with nursing staff and daughter on phone, magazine given. - attempting to avoid Ativan (2) Bradycardia: Plan: Bradycardic in the 40s50s, asymptomatic - EKG obtained showed A-fib with slow ventricular response, nonspecific T wave abnormalities - Lyme negative - believe this was due to her taking too much of her metoprolol, but now has been afib RVR up to 160 - Restarted Metoprolol 25mg BID (home dose was 100mg BID) will increase as needed - increase Synthroid to 75mcq patient has bradycardia with pause afternoon 05/09, if continues to have issues with rate control would recommend cardiology consult (follow with Dr. Espinoza) (3) Diabetes mellitus: Plan: On metformin 500 mg BID at home. - Hgb A1c 6.9% on 05/05 - SI insulin while inpatient. No basal dosing ordered - minimal insulin needs, switch to CF only Plan Anxiety: continue home meds, - buspar, sertraline, mirtazapine A fib: continue metoprolol, apixaban Hypothyroidism: levothyroxine increased as above GERD: continue pantoprazole HTN: patient on lisinopril 2.5 mg for HTN, continue for now hx of MCA stroke - continue ASA and statin Code status: full, did discuss with patient, but she was unsure about her wishes, once less confused would repeat code status discussion DVT ppx: Eliquis Dispo: continued inpatient stay determining dispo, and monitoring HR Daughter updated at bedside 05/09, reports family is struggling with how they will pay for 03/03 care for her mom. CM asked to speak with daughter Admission and Anticipated Discharge Date Admission Date: May 06, 2024 Supervising Physician Co-Signing Physician Notes Attending Attestation - Chart reviewed, care plan d/w ADALBERTO Mcqueen. I agree w/ the huggins components of her documentation. TSH in February 2024 was mildly high; repeat today also high. To increase synthroid dose and repeat TSH 4-6 weeks as outpatient. 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 Strongly consider cardiology consultation - would she need pacemaker placement for such? Kash Staley MD Subjective Masha seen sitting at the side of the bed eating breakfast. States that she is sad this morning but unable to tell me why. good appetite does feel like her heart is going fast. Tele - afib/aflutter 70-140s Review of Systems Review of Systems: All systems reviewed & are unremarkable except as noted in Subjective Physical Exam Physical Exam: General: NAD, VS as above, sitting at the edge of the bed, tearful Resp: normal respiratory effort, lungs clear to auscultation CV: afib, no murmur, Abd: normal bowel sounds, non tender, no hepatosplenomegaly Extremities: Moves all extremities, no edema Neuro: A&O x1, thinks she in [facility] and its 2022, does not know the month Results & Data Results & Data Vital Signs (Past 12 Hours) Vital Signs Temp Pulse Resp BP BP Pulse Ox O2 Del Method 05/09/24 07:39 97.3 F L 103 H 18 131/97 99 Room Air 05/09/24 03:50 97.9 F 111 H 18 140/80 96 Room Air 05/08/24 23:00 97.3 F L 79 18 105/71 98 Room Air Laboratory Results POC glucose and TSH reviewed PG Care Time/CCT Total # of Minutes Spent Total Time Spent with Patient: Total time spent is greater than 50% in coordination of care (as documented) at patient's floor/unit and/or counseling patient: Coding Level of Care Code 67111 SUB INP/OBS CARE 3/50MIN Diagnoses Confusion R41.0 Bradycardia R00.1 Diabetes mellitus E11.9
[2024-05-09] MEDS: METOPROLOL TARTRATE 25 MG TAB PO SCH (11:20)
[2024-05-09] MEDS: POLYETHYLENE (MIRALAX) 17 GM PACK PO PRN (13:23)
[2024-05-09] MEDS: QUEtiapine FUMARATE 25 MG TABLET PO SCH (19:17)
[2024-05-09] MEDS: OLANZapine 10 MG/2.1 ML SDV IM STA (23:14)
[2024-05-10] MEDS: OLANZapine 10 MG/2.1 ML SDV IM ONE (00:56)
[2024-05-10] MEDS: QUEtiapine FUMARATE 25 MG TABLET PO STA (00:56)
[2024-05-10] MEDS: LEVOTHYROXINE SODIUM 75 MCG TABLET PO SCH (08:15)
[2024-05-10] MEDS: QUEtiapine FUMARATE 25 MG TABLET PO SCH (08:15)
[2024-05-10 10:49] LABS: Anion Gap 8 (3-11); BUN Creatinine Ratio 27.8 (10-20); Blood Urea Nitrogen 27 mg/dl (6-23); Calcium 9.1 mg/dl (8.6-10.3); Carbon Dioxide 25 mmol/L (21-32); Chloride 107 mmol/L (98-107); Creatinine Clr Calc Pharmacy 58.2 ml/min; Est GFR (African American) 68.1 ml/min; Est GFR (Non-African American) 58.8 ml/min; Glucose 141 mg/dl (70-99(Fasting)); Magnesium 2.1 mg/dl (1.7-2.4); Sodium 140 mmol/L (136-145)
--- NOTE | 2024-05-10 13:18 | Hospitalist Progress Note ---
Date of Service May 10, 2024 Assessment & Plan (1) Confusion: Plan: Presented with increased confusion and hallucinations over the week leading to admission in the setting of CHRONIC cognitive impairment/dementia. She was found wandering outside looking for her granddaughter and said that she saw her to 4 years ago. - Suspect this acute confusion is secondary to polypharmacy/accidental overdose of home medications +/- progression of dementia. Does have hx of missed/double doses - She does take multiple mood medicationssertraline, mirtazapine, BuSpar. - Added Seroquel 25mg BID , increased evening dose to 50mg 05/09 for increased hallucinations/difficulty redirecting - Brain MRI, head CT, head and neck CTAs, CXR all unremarkable. Lipid panel WNL. - Patient's acute confusion has resolved, fully alert and oriented at this time. - PT/OT recommending rehab. Family is stating that they do not want her to go to rehab and she cannot afford [facility]. They are requesting home with home health. - Discussed with family (both son and daughter) that she is not safe to return home unless she can have 24/7 care - Family in agreement, will discuss amongst themselves and will need to discuss with case management what options are available Family asking for ativan, states helps at home. No pharmacy fills or PDMPs notation of ativan prescription. PCP note from February states " recommended discontinuing lorazepam and prescription for hydroxyzine take 10 mg on as-needed basis sent to the pharmacy" for anxiety with traveling. - Masha was more difficult to reidrect and emotional when her daughter left this afternoon, walking out to the halls. Was able to redirect with nursing staff and daughter on phone, magazines were given for distraction. - attempting to avoid Ativan Required IM Zyprexa and soft limb restraints overnight 05/10 and again in late afternoon (2) Bradycardia: Plan: Bradycardic in the 40s50s, asymptomatic - EKG obtained showed A-fib with slow ventricular response, nonspecific T wave abnormalities - Lyme negative - believe this was due to her taking too much of her metoprolol, but now has been afib RVR up to 160 - Restarted Metoprolol 25mg BID (home dose was 100mg BID) will increase as needed - increase Synthroid to 75mcq - Cardiology consulted for atrial fibrillation with possible tachybradycardia syndrome - Unfortunately, patient was pretty sedated during cardiology's evaluation. Continue metoprolol 25 mg twice daily for now. Will reassess once she is fully awake and walking to get a better understanding of her rate/symptoms. (3) Diabetes mellitus: Plan: On metformin 500 mg BID at home. - Hgb A1c 6.9% on 05/05 - SI insulin while inpatient. No basal dosing ordered - minimal insulin needs, switch to CF only Plan Consulted cardiology Ordered soft limb restraints Ordered IM Zyprexa x 1 Anxiety: continue home meds, - buspar, sertraline, mirtazapine A fib: continue metoprolol as noted above, apixaban Hypothyroidism: levothyroxine increased as above GERD: continue pantoprazole HTN: patient on lisinopril 2.5 mg for HTN, continue for now hx of MCA stroke - continue ASA and statin Code status: full, did discuss with patient, but she was unsure about her wishes, once less confused would repeat code status discussion DVT ppx: Eliquis Dispo: continued inpatient stay determining dispo, and monitoring HR Daughter updated at bedside 05/09, reports family is struggling with how they will pay for 03/03 care for her mom. CM asked to speak with daughter Admission and Anticipated Discharge Date Admission Date: May 06, 2024 Supervising Physician Co-Signing Physician Notes Attending Attestation - Chart reviewed, care plan d/w ADALBERTO Mcdaniel. I agree w/ the huggins components of her documentation. Appreciate cardiology consultation and input. Kash Staley MD Subjective Patient seen and evaluated at bedside. She was agitated overnight with kicking and punching staff, requiring additional Zyprexa and soft limb restraints to be placed. Today she remains confused, but has been calm and cooperative per RN. She was asleep most of the morning/early afternoon as she did not sleep last night until 0500, she was encouraged to maintain sleep/wake cycles to prevent further delirium. Contacted by RN in late afternoon that she had remove the patient's soft limb restraints as she was being cooperative while awake today. However, she became combative, called 911 twice, began kicking at staff again, and was screaming out in her room yelling. IM Zyprexa was administered and she was placed in soft restraints again at this time. Physical Exam Physical Exam: General: No acute distress, nondiaphoretic, well-developed, well-nourished. Skin: The skin was without rashes, erythema, edema, or bruising. Cardiac: Irregularly irregular in the 70s. No murmurs, gallops or rubs appreciated. Pulm: Clear to auscultation bilaterally without wheezes, rales or rhonchi. No respiratory distress. 95% on room air. Abdominal: Soft, nontender, nondistended. Bowel sounds present. Neuro: A&O x4. No focal neurological deficits. Results & Data Results & Data Vital Signs (Past 12 Hours) Vital Signs Temp Pulse Pulse Resp BP Pulse Ox O2 Del Method 05/10/24 11:22 98.4 F 52 L 18 127/80 96 Room Air 05/10/24 08:08 97.5 F L 58 L 18 121/70 100 Room Air 05/10/24 07:00 144 H Laboratory Results Reviewed chemistries PG Care Time/CCT Total # of Minutes Spent Total Time Spent with Patient: Total time spent is greater than 50% in coordination of care (as documented) at patient's floor/unit and/or counseling patient: Coding Level of Care Code 78582 SUB INP/OBS CARE 3/50MIN Diagnoses Confusion R41.0 Bradycardia R00.1 Diabetes mellitus E11.9
--- NOTE | 2024-05-10 16:20 | Cardiology Consultation ---
Date of Consultation May 10, 2024 Assessment & Plan (1) Bradycardia: (2) Chronic diastolic CHF (congestive heart failure): (3) Atrial fibrillation: (4) Mitral insufficiency: Plan 1. Atrial fibrillation: Previously on sotalol. Now on metoprolol for rate control. Apparently there was a concern about too much metoprolol and this had been held. Patient then developed rapid ventricular rates and metoprolol was reintroduced. There is been some concern about bradycardia and pauses over the past 2 days. Unfortunately, an interview could not be performed with the patient to see if there are any symptoms associated with these episodes. It is very possible she was sleeping during these periods of bradycardia and pauses. In any event, I think I would simply continue her current dose of metoprolol tartrate which appears to be 25 mg twice daily. Current rates appear to be adequate. Will have a better understanding of adequate rate control when she is more ambulatory. She can continue systemic anticoagulation. 2. Mitral regurgitation: Mild to moderate in 2013. 3. Heart failure with preserved ejection fraction: Chronic. No acute exacerbation. She does not appear to have breathing difficulty. No pulmonary edema on lung examination. No peripheral edema either. History of Present Illness Reason for Consultation: Atrial fibrillation, bradycardia, tachycardia Requesting Physician: Violeta Attending Physician: Kash Staley MD History of Present Illness The patient is a 69-year-old female with a history of permanent atrial fibrillation heart failure with preserved ejection fraction and moderate mitral regurgitation who was admitted for worsening confusion, delirium and hallucination. There was some debate as to whether the patient was compliant with her medical therapy and in fact may have been taking more medication than she was prescribed. It seems that at the time of admission her usual metoprolol dose was held. A few days later the patient began to have episodes of atrial fibrillation and high ventricular rates. Some metoprolol was resumed but there was some concern over episodes of bradycardia as well. Unfortunately, due to significant agitation overnight the patient did receive some sedatives earlier today. According to the nursing staff she has been ambulatory during this admission and in fact at times quite pleasant and conversant. Today however she is quite somnolent and difficult to arouse. She was not able to provide any meaningful history. On an outpatient basis she sees Dr. Espinoza regularly Allergies Allergy/AdvReac Type Severity Reaction Status Date / Time adhesive Allergy Intermediate LOCAL Verified 04/14/24 11:07 BLISTERS AND SKIN TEARING Home Medications Medication Instructions Recorded Confirmed Type cholecalciferol (vitamin D3) 25 1,000 unit PO DAILY 03/01/19 05/04/24 History mcg (1,000 unit) tablet fish oil-dha-epa 1,200 mg-144 1 cap PO AMHS 03/01/19 05/04/24 History mg-216 mg capsule magnesium oxide 400 mg PO BID 03/01/19 05/04/24 History blood-glucose meter (Blood Glucose #1 ea 11/30/19 05/04/24 Rx Monitoring kit) aspirin 81 mg tablet,delayed 81 mg PO .DAILY @ NOON 12/17/20 05/04/24 History release lancets (OneTouch UltraSoft #100 ea 04/09/22 05/04/24 Rx Lancets) blood sugar diagnostic (Blood #100 ea 06/06/22 05/04/24 Rx Glucose Test strips) pen needle, diabetic 31 gauge x #100 ea 07/31/22 05/04/24 Rx 5/16" (Unifine Pentips Plus) apixaban 5 mg tablet (Eliquis) 5 mg PO BID #180 tabs 01/09/24 05/04/24 Rx metformin 500 mg tablet 500 mg PO BID #60 tabs 02/03/24 05/04/24 Rx mirtazapine 15 mg tablet 15 mg PO HS 02/21/24 05/04/24 History simvastatin 40 mg tablet 40 mg PO HS #90 tabs 03/02/24 05/04/24 Rx buspirone 7.5 mg tablet 7.5 mg PO AMHS 05/04/24 05/04/24 History qsjmrmxoyzi-olvkhmkvb-pyv C-Mn 1 cap PO BID 05/04/24 05/04/24 History capsule (Glucosamine-Chondroitin Complex capsule) levothyroxine 50 mcg tablet 50 mcg PO DAILYBB 05/04/24 05/04/24 History lisinopril 2.5 mg tablet 2.5 mg PO QAM 05/04/24 05/04/24 History magnesium chloride 64 mg 64 mg PO BID 05/04/24 05/04/24 History tablet,extended release metoprolol tartrate 100 mg tablet 100 mg PO AMHS 05/04/24 05/04/24 History jtrtgpnv-jkln-kycm 8 mg-folic 400 1 tab PO .DAILY AT NOON 05/04/24 05/04/24 History mcg-K 50 mcg-lutein 300 mcg tablet (Centrum Silver Women) pantoprazole 40 mg tablet,delayed 40 mg PO QAM 05/04/24 05/04/24 History release sertraline 100 mg tablet 100 mg PO QPM 05/04/24 05/04/24 History Patient History Medical History Low hemoglobin Transaminitis Accidental overdose Depression Headache Stone, kidney Hallucination, visual Altered mental status Accidental drug ingestion Acute confusion Paronychia due to ingrown nail Ingrowing nail, right great toe CVA (cerebral vascular accident) CHF (congestive heart failure) Hypomagnesemia Shortness of breath CVA (cerebral vascular accident) Surgical History S/P wrist surgery Family History Mother Myocardial infarction Other FHx: heart disease FHx: hypertension Family history of diabetes mellitus Family history of kidney stones Denies family history of Ovarian cancer Prostate cancer Breast cancer Colorectal cancer Social History Smoking Status: Never smoker Second Hand Exposure: No; Do You Dip or Chew Tobacco: No; Hx Alcohol Use: No Hx Substance Use: No Preferred Language: Cameroonian Communication Ability: Impaired Visual Impairment: No Limitations Hearing Ability: Normal Hot Mix Operator Required: No Beliefs That Will Affect Care: None marital status: Current Living Situation: Alone current occupational status: retired Other Information That Helps Us Care for You: No Feels Safe at Home: Yes Safety Concerns: Feels Safe At This Time Childhood Exposure to Second-Hand Smoke: No Dental Care, Regularly: No Physical Activity Frequency: Does not Exercise Seatbelt Use: always Sunscreen Use: No Assistive Devices: Cane Review of Systems Review of Systems: Unobtainable due to cognitive status Physical Exam Physical Exam: She is somnolent. Difficult to arouse. Lungs: Lungs are clear to auscultation bilaterally. There are no rales wheezes or rhonchi. She has normal respiratory effort without use of accessory muscles. There is normal pulmonary excursion. Cardiac: The rhythm was irregular. S1 and S2 were normal. There are no murmurs on examination. The PMI was not markedly displaced on palpation. Abdomen: The abdomen was soft and nontender. Extremities: Patient has bilateral radial pulses that are equal in intensity. There is no evidence cyanosis or clubbing. There was no evidence of significant peripheral edema bilaterally. Skin: There are no rashes noted on examination today. Results & Data Vital Signs (Past 12 Hours) Vital Signs Temp Pulse Pulse Resp BP Pulse Ox O2 Del Method 05/10/24 15:41 36.4 C L 75 16 129/72 94 Room Air 05/10/24 13:00 65 05/10/24 11:22 36.9 C 52 L 18 127/80 96 Room Air 05/10/24 08:08 36.4 C L 58 L 18 121/70 100 Room Air 05/10/24 07:00 144 H Laboratory Results Abnormal Lab Results 05/09/24 05/09/24 05/10/24 16:40 20:05 09:15 Sodium Potassium Chloride Carbon Dioxide Anion Gap BUN Creatinine Est Cr Clr Drug Dosing Est GFR ( Amer) Est GFR (Non-Af Amer) BUN/Creatinine Ratio Glucose POC Glucose 130 H 197 H 140 H Calcium Magnesium 05/10/24 05/10/24 05/10/24 09:44 10:56 11:52 Sodium 140 Potassium TNP TNP 4.1 Chloride 107 Carbon Dioxide 25 Anion Gap 8 BUN 27 H Creatinine 0.97 Est Cr Clr Drug Dosing 58.2 Est GFR ( Amer) 68.1 Est GFR (Non-Af Amer) 58.8 BUN/Creatinine Ratio 27.8 H Glucose 141 H POC Glucose Calcium 9.1 Magnesium 2.1 05/10/24 12:00 Sodium Potassium Chloride Carbon Dioxide Anion Gap BUN Creatinine Est Cr Clr Drug Dosing Est GFR ( Amer) Est GFR (Non-Af Amer) BUN/Creatinine Ratio Glucose POC Glucose 135 H Calcium Magnesium Diagnostic Findings Brain MRI 05/04/2024: No acute intracranial pathology PG Care Time/CCT Total # of Minutes Spent Total Time Spent with Patient: Total time spent is greater than 50% in coordination of care (as documented) at patient's floor/unit and/or counseling patient: Coding Level of Care Code 89100 INT INP/OBS CARE 3/75MIN Diagnoses Bradycardia R00.1 Chronic diastolic CHF (congestive heart failure) I50.32 Atrial fibrillation I48.91 Mitral insufficiency I34.0
[2024-05-10] MEDS: OLANZapine 10 MG/2.1 ML SDV IM STA (17:23)
[2024-05-10] MEDS: ONDANSETRON INJ 2 MG/ML 2 ML VIAL IV PRN (21:14)
[2024-05-11 07:35] LABS: BUN Creatinine Ratio 28.7 (10-20); Calcium 9.1 mg/dl (8.6-10.3); Creatinine Clr Calc Pharmacy 60.2 ml/min; Est GFR (African American) 70.7 ml/min; Potassium 4.3 mmol/L (3.5-5.1)
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
[2024-05-11] MEDS: THIAMINE HCL 500 MG in SODIUM CHLORIDE 0.9% 50 ML IV SCH (13:05)
[2024-05-11] MEDS: DOCUSATE SODIUM 100 MG CAP PO SCH (13:05)
--- NOTE | 2024-05-11 13:43 | Cardiology Progress Note ---
Date of Service May 11, 2024 Assessment & Plan (1) Bradycardia: (2) Chronic diastolic CHF (congestive heart failure): (3) Atrial fibrillation: (4) Mitral insufficiency: Plan 1. Atrial fibrillation: Some sense of "fluttering". Overall asymptomatic. Some higher rates at times possibly when she is agitated or awake. No significant bradycardia. I think her dose of metoprolol could easily be increased to 50 mg twice daily if she continues to have high ventricular rates. Continue systemic anticoagulation with apixaban. 2. Mitral regurgitation: Mild to moderate in 2013. 3. Heart failure with preserved ejection fraction: Chronic. No acute exacerbation. She does not appear to have breathing difficulty. No pulmonary edema on lung examination. No peripheral edema either. Admission and Anticipated Discharge Date Admission Date: May 06, 2024 Subjective This afternoon the patient had no specific complaints. She was anxious for discharge. She specifically denied dizziness, breathing difficulty or pain. She did apparently report a "flutter" previously. Review of Systems Review of Systems: Per HPI Physical Exam Physical Exam: Alert. Oriented to person and place. She was able to answer questions but according to her daughter was present still hallucinating at times. Lungs: Lungs are clear to auscultation bilaterally. There are no rales wheezes or rhonchi. She has normal respiratory effort without use of accessory muscles. There is normal pulmonary excursion. Cardiac: The rhythm was irregular. S1 and S2 were normal. There are no murmurs on examination. The PMI was not markedly displaced on palpation. Abdomen: The abdomen was soft and nontender. Extremities: Patient has bilateral radial pulses that are equal in intensity. There is no evidence cyanosis or clubbing. There was no evidence of significant peripheral edema bilaterally. Skin: There are no rashes noted on examination today. Results & Data Vital Signs (Past 12 Hours) Vital Signs Temp Pulse Pulse Resp BP Pulse Ox O2 Del Method 05/11/24 11:43 36.4 C L 79 18 117/76 97 Room Air 05/11/24 08:30 77 05/11/24 08:22 36.7 C 58 L 18 126/79 96 Room Air 05/11/24 05:54 89 05/11/24 05:35 36.4 C L 94 H 18 133/87 98 Room Air Laboratory Results Abnormal Lab Results 05/10/24 05/10/24 05/11/24 17:02 20:14 06:31 Sodium 140 Potassium 4.3 Chloride 107 Carbon Dioxide 26 Anion Gap 7 BUN 27 H Creatinine 0.94 Est Cr Clr Drug Dosing 60.2 Est GFR ( Amer) 70.7 Est GFR (Non-Af Amer) 61.0 BUN/Creatinine Ratio 28.7 H Glucose 161 H POC Glucose 171 H 161 H Calcium 9.1 05/11/24 05/11/24 08:06 12:14 Sodium Potassium Chloride Carbon Dioxide Anion Gap BUN Creatinine Est Cr Clr Drug Dosing Est GFR ( Amer) Est GFR (Non-Af Amer) BUN/Creatinine Ratio Glucose POC Glucose 134 H 216 H Calcium PG Care Time/CCT Total # of Minutes Spent Total Time Spent with Patient: Total time spent is greater than 50% in coordination of care (as documented) at patient's floor/unit and/or counseling patient: Coding Level of Care Code 42926 SUB INP/OBS CARE 2/35MIN Diagnoses Bradycardia R00.1 Chronic diastolic CHF (congestive heart failure) I50.32 Atrial fibrillation I48.91 Mitral insufficiency I34.0
[2024-05-11] MEDS: LORazepam 0.5 MG TAB PO SCH (21:24)
[2024-05-11] MEDS: METOPROLOL TARTRATE 50 MG TAB PO SCH (21:24)
[2024-05-12 07:10] LABS: BUN Creatinine Ratio 26.3 (10-20); Calcium 9.4 mg/dl (8.6-10.3); Creatinine Clr Calc Pharmacy 49.5 ml/min; Est GFR (Non-African American) 48.3 ml/min; Potassium 4.4 mmol/L (3.5-5.1)
[2024-05-12 07:12] LABS: Hematocrit (blood only) 42.5 % (37.0-47.0); Hemoglobin 14.1 g/dl (12.0-16.0); Mean Corpuscular Hemoglobin 30.1 pg (25.0-34.0); Mean Corpuscular Hgb Conc 33.2 g/dL (32.0-36.0); Mean Corpuscular Volume 90.6 fL (80.0-100.0); Mean Platelet Volume 10.9 fL (9.4-12.4); Platelet Count 224 K/uL (130-400); RDW Coefficient of Variation 14.3 % (11.5-14.5); RDW Standard Deviation 46.5 fL (36.4-46.3); Red Blood Count 4.69 M/uL (4.20-5.40); White Blood Count 9.26 K/ul (4.8-10.8)
--- NOTE | 2024-05-12 08:08 | Hospitalist Progress Note ---
Date of Service May 12, 2024 Assessment & Plan (1) Confusion: Plan: Presented with increased confusion and hallucinations over the week leading to admission in the setting of CHRONIC cognitive impairment/dementia. She was found wandering outside looking for her granddaughter and said that she saw her to 4 years ago. Suspect this acute confusion is secondary to polypharmacy/accidental overdose of home medications +/- progression of dementia. Does have hx of missed/double doses Hx MCA CVA w/ delirium/confusion waxing/waning at times since that time Possible toxic encephalopathy due to drugs Brain MRI, head CT, head and neck CTAs, CXR all unremarkable. Lipid panel WNL. She does take multiple mood medicationssertraline, mirtazapine, BuSpar. Ongoing confusion/agitation and PRIOR PROVIDER ADDED Seroquel 25mg BID , increased evening dose to 50mg 05/09 for increased hallucinations/difficulty redirecting (new medication) Lyme negative. B12 not deficient TSH elevation to 7.2 and on supplementation at baseline and increased Synthroid to 75mcg daily (daughter reports worried about overdose of such previously -- TSH 0.044 in February 2023, HOWEVER has been elevated since February in 7s and w/ her uncontrolled afib increased and rec repeat TFT 4wks/adjustment as needed w/ PCP) Metoprolol held initially (also have concerns possibly taking sotalol as prior dc earlier this year but using pill packs at home and daughter thinks might still have in them), cardiology consulted for possible afib/tachybrady syndrome Metoprolol resumed 25mg BID for afib/RVR--> INCREASED to 50mg BID evening 05/11 for increased HR and FURTHER INCREASING METOPROLOL TO 75mg BID and monitoring on telemetry (on 100mg BID prior to admission) Review of home medications given already on medications with sertaline 100mg, remeron 15mg HS, buspar 7.5mg BID with addition of seroquel 25/50mg (continuing) --> HOLDING BUSPAR/SERTALINE --> added ativan 0.5mg HS as tolerated WELL IN THE PAST WITHOUT ISSUES per daughter but obv cautious with elderly but significant anxiety anastacia increased in hospital setting. Did sleep some, but was up overnight and melatonin added. Will plan for 0.5-1mg ativan HS as needed given prior reports take 1-2 tablets and SIGNIFICANT improvement in mood/confusion and mentation today Bowel regimen continued and monitor for bowel movement. No abd pain at present. *B1 level still pending, however placed on thiamine 500mg IV q8h 05/11 and can convert to PO for tomorrow until level back. Would continue empiric PO given improvement on exam 05/12 however ? if from changes to her psych medications PT/OT rec rehab. Family didn't want but unable to provide 24/7 care and discussed with CM today and ref for [facility] in place (daughter coming to visit mother now, has trip to [facility] and needs mom to be in placement before she leaves-- pending HR w/ metoprolol and bed availability at rehab Monitor exam/labs on repeat (2) Bradycardia: Plan: Bradycardic in the 40s50s on admission. EKG w/ afib/slow ventricular rate, nonspecific TW abn. Lyme testing negative. ?using sotalol at home, ?too much metoprolol (did have increase when dc her sotalol w/ cardiology earlier this year but does do pill packs for her medications and could have extras in there) TSH elevated and synthroid increased as above. Metoprolol resumed/cardiology consulted and further increased for rate control to 75mg BID and will monitor to see if needing further increased but appears HR improved from 90-120s this morning to the 60s and appreciate cardiology recs/consideration for tachybrady syndrome (3) Atrial fibrillation: Plan: as above, cards on consult and metoprolol resumed and increased for rate control given rates 90-120s overnight to 75mg BID Continues eliquis. Ensure mag/k replete and will continue to monitor on telemetry *ENSURE NO SOTALOL IN PILL PACKS (4) Hypothyroidism: Plan: TSH elevated as above, prior elevation earlier this year Synthroid INCREASED 75mcg daily, new rx at dc and will need repeat TFT outpatient 4-6wks/adjustment as needed (5) Depression: Plan: depression/anxiety, increased w/ situational changes/hospitalization On Remeron 15mg HS, buspar 7.5mg BID, Sertraline 100mg PM at baseline and as above started seroquel discussed curbside psych and rec to hold buspar first, ok to hold buspar/sertraline given seroquel start. 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 Appears prior rx for prn lasix for edema. Trace LE edema on exam but 96% on RA and doesn't appear significantly volume overloaded at present time despite mild BNP elevation to 200s Plan Code status: remains full code. can repeat discussions DVT proph: eliquis BID continued Dispo: continued inpatient stay. increasing metoprolol for HR/cards on consult. Plan to convert thiamine to PO 05/13 until B1 level returned. Monitor bowels/bowel regimen in place. PT/OT rec rehab/[facility] or 03/03 care --> updated daughter via phone 05/12 and CM sending ref to [facility] Admission and Anticipated Discharge Date Admission Date: May 06, 2024 Supervising Physician Co-Signing Physician Notes The patient was not seen by me. The chart was reviewed. Case discussed with ADALBERTO Cook. Agree with assessment and plan Subjective Evaluated this morning, sitting up in bed folding towels. Mood appears stable. Did have some difficulty with sleeping last night and reports being told to lay down. Discussed can increase PM ativan to 2 tablets if needed if first not effective but will continue current medication regimen for depression/anxiety as outlined given improvement on exam. HR elevated and discussed increasing her metoprolol further and monitoring but hopeful could get dc in next day or two if things settle down. Reports knows in the hospital, initially told me the year 2024 but easily re- oriented and did report month correctly at May. Denies fever/chills, chest pain, shortness of breath, abdominal pain, nausea or vomiting. Working on bowel regimen. Ok to call daughter with update. Questions/concerns addressed at this time. Physical Exam 2 Physical Exam: General: 69yo female sitting up in bed, appears MUCH improved from yesterday, folding towels in the room, alert/oriented to person/hospital, year 2024 initially but month May, more conversational/less anxious appearing today HEENT; head atraumatic, normocephalic, mm improved, trachea midline Resp: even/unlabored, slightly diminished in the bases (improved), no wheezing/rales, on room air CV: irregularly irregular, rates 90s (90-120s on telemetry), no significant m/r/g, trace pedal edema, calves nontender/pulses present GI: +BS, soft, slight distension but nontender ; no xavier MSK/Neuro: L sided neglect from CVA but no focal weakness, able to follow commands, answering questions appropriately Psych: alert to person/place, knows year/in hospital, intermittent hallucinations with nursing at times/events overnight but IMPROVED today Results & Data Results & Data Vital Signs (Past 12 Hours) Vital Signs Temp Pulse Pulse Resp BP BP Pulse Ox 05/12/24 07:55 05/12/24 07:42 36.6 C 104 H 20 144/90 H 96 05/12/24 07:07 130 H 05/12/24 03:28 36.7 C 99 H 20 144/84 H 95 05/12/24 00:56 105 H 05/11/24 23:58 05/11/24 23:53 36.8 C 93 H 20 134/84 97 05/11/24 20:11 36.8 C 106 H 20 121/79 96 O2 Del Method 05/12/24 07:55 Room Air 05/12/24 07:42 Room Air 05/12/24 07:07 05/12/24 03:28 Room Air 05/12/24 00:56 05/11/24 23:58 Room Air 05/11/24 23:53 Room Air 05/11/24 20:11 Room Air Laboratory Results 05/12/24 06:29 05/12/24 06:29 Mag 2.0 BNP 214 PG Care Time/CCT Total # of Minutes Spent Total Time Spent with Patient: Total time spent is greater than 50% in coordination of care (as documented) at patient's floor/unit and/or counseling patient: Coding Level of Care Code 17850 SUB INP/OBS CARE 3/50MIN Diagnoses Confusion R41.0 Bradycardia R00.1 Atrial fibrillation I48.91 Hypothyroidism E03.9 Depression F32.9 Diabetes mellitus E11.9 Hypertension I10 Left-sided visual neglect R41.4 Chronic diastolic CHF (congestive heart failure) I50.32
[2024-05-12] MEDS: POLYETHYLENE (MIRALAX) 17 GM PACK PO SCH (08:16)
[2024-05-12] MEDS ORDERED: INFLUENZA VACC TS2024-25(65y+)/PF (IIV3) 0.5mL Syr IM ONE (09:50)
[2024-05-12] MEDS: METOPROLOL TARTRATE 25 MG TAB PO ONE (10:13)
--- NOTE | 2024-05-12 15:49 | Communication Note ---
Date of Service: May 12, 2024 Patient's metoprolol increased to 75mg BID for rate control this morning w/ improvement to 60-70s however this afternoon HR dropped to 27 while sleeping w ith 2.1 second pause and decreased metoprolol back to 50mg BID with HOLD PARAMETERS and notified cardiology as do not believe seen yet today given prior concerns for afib with tachybrady syndrome. Will check ECHO given none in system/pause. Remains on telemetry.
--- NOTE | 2024-05-12 16:09 | Communication Note ---
Date of Service: May 12, 2024 Discussed w/ supervising provider and will HOLD further metoprolol and can treat rapid HR if occurs. Will defer ordering IV lopressor prn unless otherwise directed /recommended by cardiology as did send message to Cardiology provider regarding drop in HR/pause given prior concerns for afib/tachybrady syndrome and possible need for pacemaker. Continue telemetry monitoring.
--- NOTE | 2024-05-12 17:37 | Cardiology Progress Note ---
Date of Service May 12, 2024 Assessment & Plan (1) Bradycardia: (2) Chronic diastolic CHF (congestive heart failure): (3) Atrial fibrillation: (4) Mitral insufficiency: Plan 1. Atrial fibrillation: No reported symptoms today. Heart rates vary, somewhat higher when she is agitated and awake and somewhat lower when she is sleeping. No symptoms overall. I think I would simply continue with 50 mg of metoprolol twice daily. Continue systemic anticoagulation. 2. Mitral regurgitation: Mild to moderate in 2013. 3. Heart failure with preserved ejection fraction: Chronic. No acute exacerbation. She does not appear to have breathing difficulty. No pulmonary edema on lung examination. No peripheral edema either. Admission and Anticipated Discharge Date Admission Date: May 06, 2024 Subjective This afternoon the patient was somewhat somnolent but she was responsive to questions. She did not report any pain. She not reported breathing difficulty. She did not report ambulating today. She denied dizziness or sense of palpitation. Review of Systems Review of Systems: Per HPI Physical Exam Physical Exam: The patient was somnolent. She was arousable and answer questions but did not open her eyes. HEENT: Sclerae are anicteric. Pupils are equal and reactive to light and accommodation. Extraocular movements were intact. Neuro: Nonfocal Lungs: Lungs are clear to auscultation bilaterally. There are no rales wheezes or rhonchi. She has normal respiratory effort without use of accessory muscles. There is normal pulmonary excursion. Cardiac: The rhythm was irregular. S1 and S2 were normal. There are no murmurs on examination. The PMI was not markedly displaced on palpation. Extremities: Patient has bilateral radial pulses that are equal in intensity. There is no evidence cyanosis or clubbing. There was no evidence of significant peripheral edema bilaterally. Skin: There are no rashes noted on examination today. Results & Data Vital Signs (Past 12 Hours) Vital Signs Temp Pulse Pulse Resp BP Pulse Ox O2 Del Method 05/12/24 15:18 36.8 C 71 18 117/66 95 Room Air 05/12/24 14:34 64 05/12/24 11:30 36.4 C L 61 18 112/72 97 Room Air 05/12/24 07:55 Room Air 05/12/24 07:42 36.6 C 104 H 20 144/90 H 96 Room Air 05/12/24 07:07 130 H Laboratory Results Abnormal Lab Results 05/11/24 05/12/24 05/12/24 20:04 06:29 07:57 WBC 9.26 RBC 4.69 Hgb 14.1 Hct 42.5 MCV 90.6 MCH 30.1 MCHC 33.2 RDW Std Deviation 46.5 H RDW Coeff of Katt 14.3 Plt Count 224 MPV 10.9 Sodium 140 Potassium 4.4 Chloride 108 H Carbon Dioxide 23 Anion Gap 9 BUN 30 H Creatinine 1.14 Est Cr Clr Drug Dosing 49.5 Est GFR ( Amer) 56.0 Est GFR (Non-Af Amer) 48.3 BUN/Creatinine Ratio 26.3 H Glucose 176 H POC Glucose 183 H 158 H Calcium 9.4 Magnesium 2.0 B-Natriuretic Peptide 214 H 05/12/24 05/12/24 12:00 17:29 WBC RBC Hgb Hct MCV MCH MCHC RDW Std Deviation RDW Coeff of Katt Plt Count MPV Sodium Potassium Chloride Carbon Dioxide Anion Gap BUN Creatinine Est Cr Clr Drug Dosing Est GFR ( Amer) Est GFR (Non-Af Amer) BUN/Creatinine Ratio Glucose POC Glucose 166 H 96 Calcium Magnesium B-Natriuretic Peptide PG Care Time/CCT Total # of Minutes Spent Total Time Spent with Patient: Total time spent is greater than 50% in coordination of care (as documented) at patient's floor/unit and/or counseling patient: Coding Level of Care Code 60980 SUB INP/OBS CARE 2/35MIN Diagnoses Bradycardia R00.1 Chronic diastolic CHF (congestive heart failure) I50.32 Atrial fibrillation I48.91 Mitral insufficiency I34.0
[2024-05-12] MEDS: METOPROLOL TARTRATE 50 MG TAB PO SCH (19:33)
[2024-05-12 20:01] LABS: Appearance Urine Clear (Clear); Bacteria Urine Automated None Seen (None Seen); Bilirubin Urine Negative (Negative); Blood Urine Negative (Negative); Cast Urine Automated 0-2 /lpf (0-2); Color Urine Yellow; Epithelial Cell Urine Auto 0-2 /hpf (0-2); Glucose Urine UA Negative (Negative); Ketones Urine Negative (Negative); Leukocyte Esterase Urine 1+ (Negative); Nitrite Urine Negative (Negative); Protein Urine Negative (Negative); RBC Urine Automated 0-2 /hpf (0-2); Specific Gravity Urine 1.019 (1.000-1.030); Urobilinogen Urine Negative (Negative); pH Urine 5.5 (4.5-7.5)
[2024-05-12] MEDS ORDERED: METOPROLOL TARTRATE 25 MG TAB PO SCH (21:00)
--- NOTE | 2024-05-13 07:47 | Hospitalist Progress Note ---
Date of Service May 13, 2024 Assessment & Plan (1) Confusion: Plan: Presented with increased confusion and hallucinations over the week leading to admission in the setting of CHRONIC cognitive impairment/dementia. She was found wandering outside looking for her granddaughter and said that she saw her to 4 years ago. Suspect this acute confusion is secondary to polypharmacy/accidental overdose of home medications +/- progression of dementia. Does have hx of missed/double doses Hx MCA CVA w/ delirium/confusion waxing/waning at times since that time Possible toxic encephalopathy due to drugs Brain MRI, head CT, head and neck CTAs, CXR all unremarkable. Lipid panel WNL. She does take multiple mood medicationssertraline, mirtazapine, BuSpar. Ongoing confusion/agitation and PRIOR PROVIDER ADDED Seroquel 25mg BID , increased evening dose to 50mg 05/09 for increased hallucinations/difficulty redirecting (new medication) Lyme negative. B12 not deficient TSH elevation to 7.2 and on supplementation at baseline and increased Synthroid to 75mcg daily (daughter reports worried about overdose of such previously -- TSH 0.044 in February 2023, HOWEVER has been elevated since February in 7s and w/ her uncontrolled afib increased and rec repeat TFT 4wks/adjustment as needed w/ PCP) Metoprolol held initially (also have concerns possibly taking sotalol as prior dc earlier this year but using pill packs at home and daughter thinks might still have in them), cardiology consulted for possible afib/tachybrady syndrome Metoprolol resumed 25mg BID for afib/RVR--> INCREASED to 50mg BID evening 05/11 for increased HR and FURTHER INCREASING METOPROLOL TO 75mg BID and monitoring on telemetry (on 100mg BID prior to admission) Review of home medications given already on medications with sertaline 100mg, remeron 15mg HS, buspar 7.5mg BID with addition of seroquel 25/50mg (continuing) --> HOLDING BUSPAR/SERTALINE, added ativan 0.5mg HS as tolerated WELL IN THE PAST WITHOUT ISSUES and added melatonin GREAT SLEEP OVERNIGHT 05/12, slept all night Thiamine 500mg IV q8h transitioned to 200mg PO empirically while B1 level pending MENTATION IMPROVED 05/12 05/13 Nursing reporting patient slept peacefully all night w/ current regimen and will continue such -- appears doing WELL mentally, does have memory issues/dementia but delirium appears improved with medications changes as outlined and will continue current regimen Telemetry with HR dropping to 27 with 2.1 second pause while sleeping afternoon 05/12. --- Had been given 75mg metoprolol in AM. Initially placed on hold but per cardiology ok to continue 50mg BID. HR in the 50s this morning HOWEVER HR DROPPED to 26 bpm this morning with 2.2 second pause and AM METOPROLOL HELD 05/13 Cards on consult, ?pacemaker for afib/tachybrady ECHO obtained given no prior and pauses for eval --> report w/ mild-moderately reduced LV systolic function at 35-40%, mild-mod AR, mod-severe MR, mild MS, mod TR. RVSP normal BNP slight elevation day prior and does have trace pedal edema, can consider low dose diuretic -- defer to cardiology/recommendations UA w/o bacteria but cx sent for completeness Monitor labs/exam on repeat, continue telemetry monitoring Dispo:PT/OT rec rehab. Family didn't want but unable to provide 24/7 care and discussed with CM today and ref for [facility] in place (daughter coming to visit mother now, has trip to [facility] and needs mom to be in placement before she leaves-- pending HR w/ metoprolol and bed availability at rehab --> [facility]ual [facility] for rehab pending plan given telemetry (2) Bradycardia: Plan: Bradycardic in the 40s50s on admission. EKG w/ afib/slow ventricular rate, nonspecific TW abn. Lyme testing negative. As above, concerns for using prior discontinued metoprolol but also on 100mg metoprolol BID [employer] TSH elevated and synthroid increased as above Metoprolol resumed as outlined but with pauses reduced back to 50mg/held AM dose given pause as above and obtained ECHO Appreciate cards recs/assistance given concerns for tachybrady/possible need for pacemaker (3) Atrial fibrillation: Plan: as above, cards on consult and metoprolol resumed and increased for rate control given rates 90-120s overnight to 75mg BID Continues eliquis As above, metoprolol as outlined. Will give 1gm IV mag to maximize magnesium. K acceptable (4) Hypothyroidism: Plan: TSH elevated as above, prior elevation earlier this year Synthroid INCREASED 75mcg daily, new rx at dc and will need repeat TFT outpatient 4-6wks/adjustment as needed (5) Depression: Plan: depression/anxiety, increased w/ situational changes/hospitalization On Remeron 15mg HS, buspar 7.5mg BID, Sertraline 100mg PM at baseline and as above started seroquel 25mg/50mg and SUSPECT TOO MUCH HOLDING BUSPAR, SERTRALINE PM, added ativan 0.5mg HS and IMPROVED AND SLEPT LAST NIGHT/MOOD IMPROVED Frequent orientation, supportive care At rehab/[facility], would continue seroquel/low dose ativan at night given anxiety/sleeping issues and would STOP her buspar/sertaline for now given on seroquel which will help with depression (6) Diabetes mellitus: Plan: A1c 6.9 On metformin 500mg BID, B12 not deficient Utilizing SSI while inpatient, monitor/adjustment as needed (7) Hypertension: Plan: On metoprolol 100mg BID, lisinopril 2.5mg at baseline Metoprolol held/resumed at reduced dose as above and increased for rate control, BP presently 112/72 Will continue to keep lisinopril on hold while increasing her metoprolol for rate control (8) 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 Appears prior rx for prn lasix for edema. Trace LE edema on exam but 99% on RA and doesn't appear significantly volume overloaded at present time despite mild BNP elevation to 200s however see echo above and appears to use "PRN" lasix at home but not taking Defer to cards given above but likely benefit from low dose diuretic Plan Code status: remains full code. DVT proph: eliquis BID continued Dispo: telemetry monitoring given pause/afib/flutter, cardiology on consult and ECHO done this morning. ?pacemaker Possible need for low dose diuretics for diastolic CHF. Converted IV thiamine to PO and continue 200mg PO daily until resulted. +BM and continues on bowel regimen Updated daughter via phone 05/12, leaving for [facility] later this week Admission and Anticipated Discharge Date Admission Date: May 06, 2024 Supervising Physician Co-Signing Physician Notes The patient was not seen by me. The chart was reviewed. Case discussed with ADALBERTO Cook. Agree with assessment and plan Subjective Patient evaluated this morning, had ambulated the halls with therapy this morning. Reports she felt confused this morning and thought she went home last night. Did sleep well for the first night since she got here. No CP/SOB but reports did have some palpitations last night but nothing today. Metoprolol held for this morning and discussed telemetry monitoring/cardiology. She reports she loves Dr Espinoza and he took care of her before and if needs procedure (like pacemaker as discussed) would want his input if possible. Decent appetite. Discussed trouble at home to get her dc. Masha reports she knows daughter going to [employer]/vacation as her daughters uncle and left them all the money. Discussed at this time not able to get 24/7 caregivers in home and may need some rehab/placement until able to arrange but will see how she does on tele given pauses. Mood stable, discussed changes to regimen and given stable will continue. Will plan to update family later today. Questions/concerns addressed at this time. Physical Exam 2 Physical Exam: General: 69yo female sitting up in bed, appears MUCH improved from yesterday, folding towels in the room, alert/oriented to person/hospital, year 2024 initially but month May, more conversational/less anxious appearing today HEENT; head atraumatic, normocephalic, mm improved, trachea midline Resp: even/unlabored, slightly diminished in the bases (improved), no wheezing/rales, on room air CV: irregularly irregular, rates 50-70s (pause earlier this morning), +systolic/diastolic murmur, S1/S2, trace-1+ bilateral edema, calves nontender, pulses present GI: +BS, soft, nontender ; no xavier MSK/Neuro: L sided neglect from CVA but no focal weakness, able to follow commands, answering questions appropriately Psych: alert to person/place, knows year/in hospital, intermittent hallucinations with nursing at times/events overnight but IMPROVED today Results & Data Results & Data Vital Signs (Past 12 Hours) Vital Signs Pulse O2 Del Method 05/13/24 07:22 51 L 05/13/24 00:35 70 05/12/24 23:56 Room Air Laboratory Results 05/13/24 07:33 05/13/24 07:33 Diagnostic Findings ECHOCARDIOGRAM 05/13 LV systolic function is mild to moderately reduced (EF 35-40% There is mild concentric LVH LA is severely dilated Mild to moderate aortic regurgitation There is moderate to severe mitral regurgitation. There is mild mitral stenosis. There is moderate tricuspid regurgitation RVSP is normal PG Care Time/CCT Total # of Minutes Spent Total Time Spent with Patient: Total time spent is greater than 50% in coordination of care (as documented) at patient's floor/unit and/or counseling patient: Coding Level of Care Code 96220 SUB INP/OBS CARE 3/50MIN Diagnoses Confusion R41.0 Bradycardia R00.1 Atrial fibrillation I48.91 Hypothyroidism E03.9 Depression F32.9 Diabetes mellitus E11.9 Hypertension I10 Left-sided visual neglect R41.4 Chronic diastolic CHF (congestive heart failure) I50.32
[2024-05-13 07:54] LABS: Basophils # (auto) 0.06 K/uL (0.00-0.20); Eosinophils # (auto) 0.42 K/uL (0.00-0.50); Eosinophils % (auto) 7.3 %; Hematocrit (blood only) 37.8 % (37.0-47.0); Hemoglobin 12.1 g/dl (12.0-16.0); Immature Granulocytes # (auto) 0.01 K/uL (0.01-0.20); Immature Granulocytes % (auto) 0.2 %; Lymphocytes # (auto) 2.48 K/uL (1.20-3.40); Lymphocytes % (auto) 43.1 %; Mean Corpuscular Hemoglobin 30.2 pg (25.0-34.0); Mean Corpuscular Volume 94.3 fL (80.0-100.0); Mean Platelet Volume 10.9 fL (9.4-12.4); Monocytes # (auto) 0.41 K/uL (0.11-0.59); Monocytes % (auto) 7.1 %; Neutrophils # (auto) 2.37 K/uL (1.40-6.50); Neutrophils % (auto) 41.3 %; Platelet Count 193 K/uL (130-400); RDW Coefficient of Variation 14.1 % (11.5-14.5); RDW Standard Deviation 48.3 fL (36.4-46.3); Red Blood Count 4.01 M/uL (4.20-5.40); White Blood Count 5.75 K/ul (4.8-10.8)
[2024-05-13 08:07] LABS: BUN Creatinine Ratio 28.3 (10-20); Calcium 8.9 mg/dl (8.6-10.3); Creatinine Clr Calc Pharmacy 57.1 ml/min; Magnesium 1.8 mg/dl (1.7-2.4); Potassium 4.2 mmol/L (3.5-5.1)
[2024-05-13] MEDS: THIAMINE HCL 100 MG TAB PO SCH (09:22)
--- NOTE | 2024-05-13 10:05 | XCELERA ---
[id number]
[2024-05-13] MEDS: MAGNESIUM SULFATE / D5W 1 GM/100 ML BAG IV ONE (14:19)
--- NOTE | 2024-05-13 16:06 | Cardiology Progress Note ---
Date of Service May 13, 2024 Assessment & Plan (1) Bradycardia: (2) Chronic diastolic CHF (congestive heart failure): (3) Atrial fibrillation: (4) Mitral insufficiency: Plan 1. Atrial fibrillation: I think she doing quite well on her current dose of metoprolol. Some doses have been held, but I think I would simply continue with 50 mg of metoprolol tartrate twice daily. She will continue systemic anticoagulation. 2. Mitral regurgitation: Today's echocardiogram suggest moderate to severe mitral regurgitation. She is not symptomatic. LV function appears to have declined. Unclear if she would ever be a candidate for intervention. 3. Aortic regurgitation: Mild to moderate. 4. Cardiomyopathy: Her current echocardiogram suggest reduced LV systolic function. Unclear etiology. Not likely ischemic. Fortunately, she appears to be well compensated. Lung examination was normal. At this point I think we will simply intensify her medical regimen. We will switch her metoprolol to tartrate to a succinate formulation once the appropriate dose has been ident ified. We could also consider switching lisinopril to Entresto. I would also suggest adding Jardiance. Admission and Anticipated Discharge Date Admission Date: May 06, 2024 Review of Systems Review of Systems: Per HPI Physical Exam Physical Exam: The patient was alert. She answer questions appropriately. She appeared to be confused about certain topics including her current location in the hospital whether she was in another room previously. HEENT: Sclerae are anicteric. Pupils are equal and reactive to light and ac commodation. Extraocular movements were intact. Neuro: Nonfocal Lungs: Lungs are clear to auscultation bilaterally. There are no rales wheezes or rhonchi. She has normal respiratory effort without use of accessory muscles. There is normal pulmonary excursion. Cardiac: The rhythm was irregular. S1 and S2 were normal. There are no murmurs on examination. The PMI was not markedly displaced on palpation. Extremities: Patient has bilateral radial pulses that are equal in intensity. There is no evidence cyanosis or clubbing. There was no evidence of significant peripheral edema bilaterally. Skin: There are no rashes noted on examination today. Results & Data Vital Signs (Past 12 Hours) Vital Signs Temp Pulse Pulse Resp BP BP Pulse Ox 05/13/24 15:49 36.5 C 101 H 18 143/89 H 97 05/13/24 12:06 36.3 C L 69 18 136/85 99 05/13/24 08:02 36.3 C L 51 L 18 115/59 L 97 05/13/24 07:22 51 L O2 Del Method 05/13/24 15:49 Room Air 05/13/24 12:06 Room Air 05/13/24 08:02 Room Air 05/13/24 07:22 Laboratory Results Abnormal Lab Results 05/12/24 05/12/24 05/12/24 17:29 19:21 19:35 WBC RBC Hgb Hct MCV MCH MCHC RDW Std Deviation RDW Coeff of Katt Plt Count MPV Immature Gran % (Auto) Neut % (Auto) Lymph % (Auto) [place] % (Auto) Eos % (Auto) Baso % (Auto) Neut # (Auto) Lymph # (Auto) [place] # (Auto) Eos # (Auto) Baso # (Auto) Immature Gran # (Auto) Sodium Potassium Chloride Carbon Dioxide Anion Gap BUN Creatinine Est Cr Clr Drug Dosing eGFR BUN/Creatinine Ratio Glucose POC Glucose 96 171 H Calcium Magnesium Urine Color Yellow Urine Appearance Clear Urine pH 5.5 Ur Specific [place] 1.019 Urine Protein Negative Urine Glucose (UA) Negative Urine Ketones Negative Urine Blood Negative Urine Nitrite Negative Urine Bilirubin Negative Urine Urobilinogen Negative Ur Leukocyte Esterase 1+ H Urine WBC (Auto) 6-10 H Urine RBC (Auto) 0-2 U Hyaline Cast (Auto) 0-2 U Epithel Cells (Auto) 0-2 Urine Bacteria (Auto) None Seen 05/13/24 05/13/24 05/13/24 07:33 08:27 12:17 WBC 5.75 RBC 4.01 L Hgb 12.1 Hct 37.8 MCV 94.3 MCH 30.2 MCHC 32.0 RDW Std Deviation 48.3 H RDW Coeff of Katt 14.1 Plt Count 193 MPV 10.9 Immature Gran % (Auto) 0.2 Neut % (Auto) 41.3 Lymph % (Auto) 43.1 [place] % (Auto) 7.1 Eos % (Auto) 7.3 Baso % (Auto) 1.0 Neut # (Auto) 2.37 Lymph # (Auto) 2.48 [place] # (Auto) 0.41 Eos # (Auto) 0.42 Baso # (Auto) 0.06 Immature Gran # (Auto) 0.01 Sodium 141 Potassium 4.2 Chloride 109 H Carbon Dioxide 29 Anion Gap 3 BUN 28 H Creatinine 0.99 Est Cr Clr Drug Dosing 57.1 eGFR 60.96 BUN/Creatinine Ratio 28.3 H Glucose 135 H POC Glucose 125 H 218 H Calcium 8.9 Magnesium 1.8 Urine Color Urine Appearance Urine pH Ur Specific [place] Urine Protein Urine Glucose (UA) Urine Ketones Urine Blood Urine Nitrite Urine Bilirubin Urine Urobilinogen Ur Leukocyte Esterase Urine WBC (Auto) Urine RBC (Auto) U Hyaline Cast (Auto) U Epithel Cells (Auto) Urine Bacteria (Auto) Diagnostic Findings Echocardiogram performed 05/13/2024: Mild to mildly reduced LV systolic function. Mild LVH, biatrial dilation, mild to moderate aortic regurgitation and moderate to severe mitral regurgitation. Mild mitral stenosis. PG Care Time/CCT Total # of Minutes Spent Total Time Spent with Patient: Total time spent is greater than 50% in coordination of care (as documented) at patient's floor/unit and/or counseling patient: Coding Level of Care Code 68386 SUB INP/OBS CARE 2/35MIN Diagnoses Bradycardia R00.1 Chronic diastolic CHF (congestive heart failure) I50.32 Atrial fibrillation I48.91 Mitral insufficiency I34.0
[2024-05-14 07:19] LABS: BUN Creatinine Ratio 27.5 (10-20); Calcium 8.9 mg/dl (8.6-10.3); Magnesium 1.9 mg/dl (1.7-2.4); Potassium 4.2 mmol/L (3.5-5.1)
--- NOTE | 2024-05-14 08:27 | Hospitalist Progress Note ---
Date of Service May 14, 2024 Assessment & Plan (1) Confusion: Plan: Presented with increased confusion and hallucinations over the week leading to admission in the setting of CHRONIC cognitive impairment/dementia. She was found wandering outside looking for her granddaughter and said that she saw her to 4 years ago. Suspect this acute confusion is secondary to polypharmacy/accidental overdose of home medications +/- progression of dementia. Does have hx of missed/double doses Hx MCA CVA w/ delirium/confusion waxing/waning at times since that time Possible toxic encephalopathy due to drugs Brain MRI, head CT, head and neck CTAs, CXR all unremarkable. Lipid panel WNL. She does take multiple mood medicationssertraline, mirtazapine, BuSpar. Ongoing confusion/agitation and PRIOR PROVIDER ADDED Seroquel 25mg BID , increased evening dose to 50mg 05/09 for increased hallucinations/difficulty redirecting (new medication) Lyme negative. B12 not deficient TSH elevation to 7.2 and on supplementation at baseline and increased Synthroid to 75mcg daily (daughter reports worried about overdose of such previously -- TSH 0.044 in February 2023, HOWEVER has been elevated since February in 7s and w/ her uncontrolled afib increased and rec repeat TFT 4wks/adjustment as needed w/ PCP) Metoprolol held initially (also concerns w/ taking sotalol), cardiology consulted and did resume metoprolol and increased to 75mg BID but HR dropped to 20s with 2.2 second pause and decreased back to 50mg PO BID per cardiology ECHO obtained given afib/pauses to eval EF/valvular dysfunction * ECHO w/ mild-moderately reduced LV systolic function at 35-40%, mild-mod AR, mod-severe MR, mild MS, mod TR. RVSP normal Cardiology on consult * Added Yady Bartholomew QAM 05/14 for cardiomyopathy/reduced EF to optimize medical regimen. * Continue metoprolol tartrate 50mg PO BID for rate control with plans to switch to succinate --> HR 60-100s, does have some drops to the 30s today at times briefly, defer to cards for further adjustment to prevent afib/RVR. BNP improved without diuretics w/ better rate control Regarding medications for anxiety/depression, MOOD MUCH IMPROVED AND STABLE with changes SINCE 05/12 * Continue Seroquel 25mg/50mg HS, Remeron 15mg hs for depression/mood/appetite and sleep * Ativan 0.5mg HS/melatonin 3mg EFFECTIVE for sleep and anxiety while in the hospital and given tolerated the ativan prior will continue at lower dose * Plan to DISCONTINUE BUSPAR/SERTRALINE Was also given thiamine IV and continued on 200mg PO daily empirically while B1 pending. Normal at 19 and can discontinue further PT/OT rec for rehab, CM following and possible bed on Friday but working on adjustments as above and will continue to update family. Daughter leaving for [place] on Friday morning but her daughter Maria Antonia available when she is gone for decision making if not able to reach her, number [phone]. (2) Cardiomyopathy: Plan: ECHO obtained given cardiomegaly/afib to assess systolic function/underlying valvular disease. ?related to uncontrolled afib w/ rapid rates? ECHO w/ mild-moderately reduced LV systolic function (EF 35-40%), mild-mod AR, m od-severe MR, mild MS, mod TR. RVSP normal Cards on consult, unclear etiology but per cards unlikely ischemic. Intensifying medical regimen: eventual switch metoprolol tartrate to succinate but continue 50mg BID for rate control for now and plans for starting Entresto today (05/14,prior lisinopril not resumed) as well as Jardiance 10mg daily (3) Bradycardia: Plan: Bradycardic in the 40s50s on admission. As above, concerns for using prior discontinued sotalol but also on 100mg metoprolol BID TECHNOLOGY APPLICATIONS TEACHER which was increased when stopping the sotalol (wash out ~4 days) EKG w/ afib/slow ventricular rate, nonspecific TW abn on admission Lyme testing negative. Metoprolol currently at 50mg BID as above, plans for switching to succinate given EF/cardiomyopathy above Do still have concerns for possible tachybrady syndrome but per cards to continue BB 50mg PO BID as above w/ plans to switch to succinate and per discussion with daughter they really didn't want to entertain pacemaker if not absolutely necessary and will work on optimizing medical regimen at this time TSH elevated and Synthroid increased to 75mcg daily Continue telemetry monitoring (4) Atrial fibrillation: Plan: as above, continue metoprolol 50mg BID, remains on eliquis BID Continue telemetry monitoring Optimize K/mag as needed (5) Hypothyroidism: Plan: TSH elevated as above, prior elevation earlier this year Synthroid INCREASED 75mcg daily, new rx at dc and will need repeat TFT outpatient 4-6wks/adjustment as needed (6) Depression: Plan: depression/anxiety, increased w/ situational changes/hospitalization and home regimen consisted of : Buspar 7.5mg BID, remeron 15mg HS, sertaline 100mg HS and was started on seroquel on admission for agitation/aggression and suspected w/ AMS was on TOO MUCH medication and adjustments as above under "confusion" Plan at discharge to STOP buspar/sertraline and would opt to continue seroquel for depression/mood/sundowning and sleep as well as low dose ativan at rehab given anxiety in unfamiliar environment and has been tolerating since adding and has been continued (7) Diabetes mellitus: Plan: A1c 6.9 On metformin 500mg BID, B12 not deficient Utilizing SSI while inpatient, monitor/adjustment as needed (8) Hypertension: Plan: TECHNOLOGY APPLICATIONS TEACHER on metoprolol 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 Appears prior rx for prn lasix for edema. Now with HF with REDUCED EF to 35-40% as above Monitor volume status -- does not appear significantly volume overloaded at present time with only trace LE edema but 97% on RA and weights DOWN without diuretics w/ rate control to 83.2kg from 84.6kg however ?accuracy of weights and adding entresto/Jardiance for new reduction in EF Continue tele monitoring Plan Code status: remains full code. DVT proph: eliquis BID continued Dispo: continued inpatient stay, rehab planned but no bed until at least Friday and needing further adjustments to medications as outlined and telemetry monitoring. Appreciate assistance/recs from cardiology on consult. -->addition of entresto/jardiance for cardiomyopathy/reduced EF, remains on current dose metoprolol for now w/ plans for switch to succinate. Updated daughter Domi via phone 05/14, leaving for [facility] on Friday morning 2am but her daughter Maria Antonia available when she is gone for decision making if not able to reach her, number [phone]. Admission and Anticipated Discharge Date Admission Date: May 06, 2024 Supervising Physician Co-Signing Physician Notes The patient was not seen by me. The chart was reviewed. Case discussed with ADALBERTO Cook. Agree with assessment and plan Subjective Evaluated this morning, sitting up in bed. Slept well overnight, pleasant/cooperative this morning. Remembers me from yesterday, talked about our animals. She reports man in this morning and told her not going home today. Discussed cardiology and starting new medications. HR controlled overnight but does have some drops this morning into the 30s. Daughter updated via phone, leaving Friday at 2am, returning Friday the following week. Daughter Maria Antonia available when she is gone for decision making if not able to reach her, number [phone]. Physical Exam 2 Physical Exam: General: 69yo female sitting up in bed, appears WELL today, continued improvement/stable mental status. Alert to person/place, remembers my face/discussion about animals day prior, year 2023 and month May HEENT; head atraumatic, normocephalic, mm improved, trachea midline Resp: even/unlabored, slightly diminished in the bases (improved), no wheezing/rales, on room air CV: irregularly irregular, rates 60-100s on monitor, does drop to 30s at times briefly, trace b/l LE edema nonpitting, pulses present/calves nontender GI: +BS, soft, slightly distended but nontender and reports getting something for bowels this morning ; no xavier MSK/Neuro: L sided neglect from CVA but no new focal weakness, able to follow commands, answering questions appropriately Psych: alert to person/place, knows year/in hospital, appears stable/improved compared to earlier in the week Results & Data Results & Data Vital Signs (Past 12 Hours) Vital Signs Temp Pulse Pulse Resp BP BP Pulse Ox 05/14/24 07:56 36.3 C L 61 18 127/81 96 05/14/24 07:00 62 05/14/24 03:17 36.4 C L 77 18 132/82 98 05/13/24 23:55 36.5 C 105 H 18 155/100 H 98 O2 Del Method 05/14/24 07:56 Room Air 05/14/24 07:00 05/14/24 03:17 Room Air 05/13/24 23:55 Room Air Laboratory Results 05/13/24 07:33 05/14/24 06:37 Mag 1.9 BNP 202 PG Care Time/CCT Total # of Minutes Spent Total Time Spent with Patient: Total time spent is greater than 50% in coordination of care (as documented) at patient's floor/unit and/or counseling patient: Coding Level of Care Code 58684 SUB INP/OBS CARE 3/50MIN Diagnoses Confusion R41.0 Cardiomyopathy I42.9 Bradycardia R00.1 Atrial fibrillation I48.91 Hypothyroidism E03.9 Depression F32.9 Diabetes mellitus E11.9 Hypertension I10 Left-sided visual neglect R41.4 Chronic diastolic CHF (congestive heart failure) I50.32
[2024-05-14] MEDS: EMPAGLIFLOZIN 10 MG TAB PO SCH (08:38)
[2024-05-14] MEDS: VALSARTAN/SACUBITRIL 26/24MG TAB PO SCH (08:39)
[2024-05-14] MEDS: POLYETHYLENE (MIRALAX) 17 GM PACK PO SCH (11:07)
--- NOTE | 2024-05-14 18:23 | Cardiology Progress Note ---
Date of Service May 14, 2024 Assessment & Plan (1) Bradycardia: (2) Chronic diastolic CHF (congestive heart failure): (3) Atrial fibrillation: (4) Mitral insufficiency: Plan 1. Atrial fibrillation: I think she doing quite well on her current dose of metoprolol. She has some slower heart rates at times, but I believe this is when she is resting, and better even sleeping. No symptoms. I think continuing with 50 mg of tartrate twice daily is reasonable. This could be converted to a single daily dose of metoprolol succinate prior to discharge. 2. Mitral regurgitation: Today's echocardiogram suggest moderate to severe mitral regurgitation. She is not symptomatic. LV function appears to have declined. Unclear if she would ever be a candidate for intervention. 3. Aortic regurgitation: Mild to moderate. 4. Cardiomyopathy: Her current echocardiogram suggest reduced LV systolic function. Unclear etiology. Not likely ischemic. Fortunately, she appears to be well compensated. Lung examination was normal. At this point I think we will simply intensify her medical regimen. We will switch her metoprolol to tartrate to a succinate formulation once the appropriate dose has been identified. Started on Jardiance and Entresto yesterday. Admission and Anticipated Discharge Date Admission Date: May 06, 2024 Subjective This afternoon the patient was tearful. When asked how she was feeling she simply said "sad". And "lonely". She did not report symptoms of chest discomfort or breathing difficulty. She cannot recall if she was ambulatory earlier in the day. Review of Systems Review of Systems: Per HPI Physical Exam Physical Exam: The patient was alert. She was tearful at times. Confused also as to her current situation. HEENT: Sclerae are anicteric. Pupils are equal and reactive to light and accommodation. Extraocular movements were intact. Neuro: Nonfocal Lungs: Some coarse breath sounds primarily in the right upper lung field. No expiratory wheezing. Normal respiratory effort. Cardiac: The rhythm was irregular. S1 and S2 were normal. There are no murmurs on examination. The PMI was not markedly displaced on palpation. Extremities: Patient has bilateral radial pulses that are equal in intensity. There is no evidence cyanosis or clubbing. There was no evidence of significant peripheral edema bilaterally. Skin: There are no rashes noted on examination today. Results & Data Vital Signs (Past 12 Hours) Vital Signs Temp Pulse Pulse Resp BP Pulse Ox O2 Del Method 05/14/24 16:04 36.7 C 87 16 138/82 98 Room Air 05/14/24 14:00 61 05/14/24 11:53 36.3 C L 61 18 106/72 97 Room Air 05/14/24 07:56 36.3 C L 61 18 127/81 96 Room Air 05/14/24 07:00 62 Laboratory Results Abnormal Lab Results 05/06/24 05/13/24 05/14/24 07:07 20:15 06:37 Sodium 142 Potassium 4.2 Chloride 108 H Carbon Dioxide 28 Anion Gap 6 BUN 28 H Creatinine 1.02 Est Cr Clr Drug Dosing 55.0 eGFR 58.82 BUN/Creatinine Ratio 27.5 H Glucose 149 H POC Glucose 167 H Calcium 8.9 Magnesium 1.9 B-Natriuretic Peptide 202 H Vitamin B1 19 05/14/24 05/14/24 05/14/24 08:14 12:05 17:24 Sodium Potassium Chloride Carbon Dioxide Anion Gap BUN Creatinine Est Cr Clr Drug Dosing eGFR BUN/Creatinine Ratio Glucose POC Glucose 138 H 178 H 128 H Calcium Magnesium B-Natriuretic Peptide Vitamin B1 PG Care Time/CCT Total # of Minutes Spent Total Time Spent with Patient: Total time spent is greater than 50% in coordination of care (as documented) at patient's floor/unit and/or counseling patient: Coding Level of Care Code 56193 SUB INP/OBS CARE 2/35MIN Diagnoses Bradycardia R00.1 Chronic diastolic CHF (congestive heart failure) I50.32 Atrial fibrillation I48.91 Mitral insufficiency I34.0
--- NOTE | 2024-05-15 07:50 | Hospitalist Progress Note ---
Date of Service May 15, 2024 Assessment & Plan (1) Confusion: Plan: Presented with increased confusion and hallucinations over the week leading to admission in the setting of CHRONIC cognitive impairment/dementia. She was found wandering outside looking for her granddaughter and said that she saw her to 4 years ago. Suspect this acute confusion is secondary to polypharmacy/accidental overdose of home medications +/- progression of dementia. Does have hx of missed/double doses Hx MCA CVA w/ delirium/confusion waxing/waning at times since that time Possible toxic encephalopathy due to drugs, hypothyroidism undertreated, afib/flutter w/ ?tachybrady, cardiomyopathy w/ reduced EF * Brain MRI, head CT, head and neck CTAs, CXR all unremarkable. Lipid panel WNL. * She does take multiple mood medicationssertraline, mirtazapine, BuSpar. * Ongoing confusion/agitation and PRIOR PROVIDER ADDED Seroquel 25mg BID , increased evening dose to 50mg 05/09 for increased hallucinations/difficulty redirecting (new medication) * Lyme negative. B12 not deficient. TSH elevated and Synthroid adjusted as below Cardiology consulted, given concerns for afib/flutter with tachybrady syndrome. HR elevated afib/RVR and then resumed metoprolol and dropped to 20s and reduced back to 50mg BID and will continue current dose per cardiology ECHO obtained, mild-moderate REDUCTION in LV systolic function to 35-40%. mild- mod AR, mod-severe MR, mild MS, mod TR. RVSP normal Entresto, jardiance started 05/14 for cardiomyopathy with reduced EF for GDMT - continue Continues metoprolol tartrate 50mg BID, message to cardiology about ?switching to succinate for AM but recs to continue tartrate 50mg BID for now however rates 90-150s, up to max 180 however did have increased anxiety overnight/this morning when visit from son/leaving, suspect possible anxiety related and again card rec to continue current dose For anxiety/depression: -Continue remeron 15mg HS/ativan 0.5mg with melatonin for sundowning/anxiety/sleep. Home zoloft/buspar on hold and planned to dc but is slightly more depressed today and anxious but suspect from remaining inpatient/delirium and wanting to go home. monitor for worsening mental status as mood was MUCH improved 05/14 AM however some increased agitation/anxiety and confusion overnight and does appear to be having some acute delirium on top of dementia and frequent orientation/maintain day/night/sleep schedule and will d ecreas PM seroquel to 25mg to prevent hypotension with new entresto. BP borderline this morning but 132/84 this afternoon and will monitor. -Increased Synthroid to 75mcg also for her afib as well as anxiety/depression symptoms Will repeat UA/cx given start jardiance to ensure UTI not contributing to worsening MS overnight. Is moving bowels (given miralax x 1 on 05/14 with good results and can continue prn. remains colace PO BID otherwise nanci) PT/OT rec rehab, [facility] planned but no bed until this upcoming week.Daughter leaving for [facility] on Friday morning but her daughter Maria Antonia available when she is gone for decision making if not able to reach her, number [phone]. (2) Cardiomyopathy: Plan: ECHO obtained given cardiomegaly/afib to assess systolic function/underlying valvular disease. ?related to uncontrolled afib w/ rapid rates? ECHO w/ mild-moderately reduced LV systolic function (EF 35-40%), mild-mod AR, m od-severe MR, mild MS, mod TR. RVSP normal Cards on consult, unclear etiology but per cards unlikely ischemic. Intensifying medical regimen: started Entresto/jardiance 05/14 as above. continues on metoprolol tartrate 50mg BID per Dr Xiao for now, defer switch to succinate when able but to continue current medication for now Home lisinopril will need dc on med list at discharge since starting entresto Will need outpt f/u at dc (3) Bradycardia: Plan: Bradycardic in the 40s50s on admission. 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 Lyme testing negative. Metoprolol held, resumed, increased but then drop in HR concerning for tachybrady as above. Family member not really wanting pacemaker but defer to cards on needs -- no mention at this time and recs to continue current metoprolol dose. Adjustment to Synthroid as outlined and remains on telemetry. No further drops and having rapid rates at times as above (4) Atrial fibrillation: Plan: as above, continue metoprolol 50mg BID, remains on eliquis BID Continue telemetry monitoring 05/15 with elevations in rates but to continue current dose per cards. K/mag optimized (5) Hypothyroidism: Plan: TSH elevated and elevated in February and INCREASED Synthroid 75mcg daily. Will need repeat TFT outpt 4wks/adj as needed (6) Depression: Plan: depression/anxiety, increased w/ situational changes/hospitalization and home regimen consisted of : Buspar 7.5mg BID, remeron 15mg HS, sertaline 100mg HS and was started on seroquel on admission for agitation/aggression and suspected w/ AMS was on TOO MUCH medication and adjustments as above under "confusion" Plan at discharge to STOP buspar/sertraline and would opt to continue seroquel for depression/mood/sundowning and sleep as well as low dose ativan at rehab given anxiety in unfamiliar environment and has been tolerating since adding and has been continued. 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 Appears prior rx for prn lasix for edema. Now with HF with REDUCED EF to 35-40% as above Started Entresto, Jardiance 05/14, continued. remains on BB for rate control at current dose but plan to switch to succinate eventually for reduced EF/cardiomyopathy Continue to monitor volume status -- does appear w/ some LE edema but 99% on RA and defer on diuretics to cardiology on consult. Plan Code status: remains full code. DVT proph: eliquis BID continued Dispo: continued inpatient stay on entresto/jardiance. continues current dose metoprolol and telemetry monitoring. reduced PM seroquel and will hold AM dose tomorrow. Plans for [facility] rehab next week when bed available. Updated daughter Domi via phone 05/14, leaving for [facility] on Friday morning 2am but her daughter Maria Antonia available when she is gone for decision making if not able to reach her, number [phone]. Admission and Anticipated Discharge Date Admission Date: May 06, 2024 Supervising Physician Co-Signing Physician Notes The patient was not seen by me. The chart was reviewed. Case discussed with ADALBERTO Cook. Agree with assessment and plan Subjective Evaluated this morning, sitting up in recliner, folding towels but appears more depressed/sad today. Masha reports feeling a little confused, thinking she is seeing her daughter Domi in the room at times. Reassurance provided. Suspect delirium from ongoing inpatient stay. She reports she slept alright overnight and moved bowels yesterday (did move bowels) but reports year 1974 today but knows she is in the hospital and wanting to know when she will be getting to go home. Discussed potentially Friday/Friday if bed available but today is Friday and at least two more days. She does endorse having ongoing anxiety, HR in 90-low 100s this morning after metoprolol but had been 90-150s up to as high as 180s on telemetry overnight. RN reports patient worsened after her son visited last evening and was worse while here this morning but better since he left. Do not know what conversation they had but ?if made masha more anxious about ongoing inpatient stay and will continue metoprolol at current rate Physical Exam 2 Physical Exam: General: 69yo female sitting up in recliner chair, had been folding towels, appears slightly more confused this morning but cooperative, thought saw her daughter in the room earlier, knows in hospital but year 1972. No slurred speech/facial droop and is nonfocal, support provided. Intermittent confusion but able to participate in exam HEENT; head atraumatic, normocephalic, mm moist, trachea midline Resp: even/unlabored, slightly diminished in the bases (improved), no wheezing/rales, on room air 99% CV: irregularly irregular, rates 90- low 100s during encounter (90-150s on telemetry overnight), 1+ LE edema, calves nontender/pulses present GI: +BS, slight distension but soft/nontender ; no xavier MSK/Neuro: nonfocal and answering questions appropriately. has L sided neglect from CVA at baseline no slurred speech/facial droop Psych: alert to person/place (intermittent to month today but not year, thought 1972), but cooperative. depressed/anxious affect at time about continued inpatient stay/when will get to leave Results & Data Results & Data Vital Signs (Past 12 Hours) Vital Signs Temp Pulse Pulse Resp BP BP Pulse Ox 05/15/24 07:30 36.7 C 93 H 18 108/73 99 05/15/24 07:00 97 H 05/15/24 02:42 36.7 C 88 16 121/76 94 05/14/24 22:26 37.4 C 124 H 16 138/81 96 05/14/24 21:56 123 H O2 Del Method 05/15/24 07:30 Room Air 05/15/24 07:00 05/15/24 02:42 Room Air 05/14/24 22:26 Room Air 05/14/24 21:56 Laboratory Results 05/13/24 07:33 05/15/24 07:19 Mag 2.0 PG Care Time/CCT Total # of Minutes Spent Total Time Spent with Patient: Total time spent is greater than 50% in coordination of care (as documented) at patient's floor/unit and/or counseling patient: Coding Level of Care Code 78470 SUB INP/OBS CARE 3/50MIN Diagnoses Confusion R41.0 Cardiomyopathy I42.9 Bradycardia R00.1 Atrial fibrillation I48.91 Hypothyroidism E03.9 Depression F32.9 Diabetes mellitus E11.9 Hypertension I10 Left-sided visual neglect R41.4 Chronic diastolic CHF (congestive heart failure) I50.32
[2024-05-15 09:00] LABS: BUN Creatinine Ratio 26.7 (10-20); Calcium 9.3 mg/dl (8.6-10.3); Creatinine Clr Calc Pharmacy 62.3 ml/min
[2024-05-15 18:32] LABS: Adenovirus PCR Not Detected (NotDetected); Bordetella parapertussis PCR Not Detected (NotDetected); Bordetella pertussis PCR Not Detected (NotDetected); Chlamydia pneumoniae PCR Not Detected (NotDetected); Coronavirus 229E PCR Not Detected (NotDetected); Coronavirus CoV-2 (COVID19)PCR DETECTED (NotDetected); Coronavirus HKU1 PCR Not Detected (NotDetected); Coronavirus NL63 PCR Not Detected (NotDetected); Coronavirus OC43PCR Not Detected (NotDetected); Human Metapneumovirus PCR Not Detected (NotDetected); Influenza A PCR Not Detected (NotDetected); Influenza B PCR Not Detected (NotDetected); Mycoplasma pneumoniae PCR Not Detected (NotDetected); Parainfluenza Virus 1 PCR Not Detected (NotDetected); Parainfluenza Virus 2 PCR Not Detected (NotDetected); Parainfluenza Virus 3 PCR Not Detected (NotDetected); Parainfluenza Virus 4 PCR Not Detected (NotDetected); Respiratory Syncytial VirusPCR Not Detected (NotDetected); Rhinovirus/Enterovirus PCR Not Detected (NotDetected)
[2024-05-15] MEDS: QUEtiapine FUMARATE 25 MG TABLET PO SCH (19:35)
[2024-05-15 20:10] LABS: Hematocrit (blood only) 43.5 % (37.0-47.0); Hemoglobin 14.2 g/dl (12.0-16.0); Mean Corpuscular Hemoglobin 29.6 pg (25.0-34.0); Mean Corpuscular Hgb Conc 32.6 g/dL (32.0-36.0); Mean Corpuscular Volume 90.8 fL (80.0-100.0); Mean Platelet Volume 10.9 fL (9.4-12.4); Platelet Count 207 K/uL (130-400); RDW Coefficient of Variation 14.1 % (11.5-14.5); RDW Standard Deviation 46.5 fL (36.4-46.3); Red Blood Count 4.79 M/uL (4.20-5.40); White Blood Count 6.17 K/ul (4.8-10.8)
[2024-05-15 20:29] LABS: Albumin Globulin Ratio 1.6 (0.9-2); Albumin Level 4.4 gm/dl (3.4-5.0); BUN Creatinine Ratio 20.9 (10-20); Bilirubin,Total 0.7 mg/dl (0.2-1.0); Calcium 9.5 mg/dl (8.6-10.3); Creatinine Clr Calc Pharmacy 43.5 ml/min; Globulin 2.7 gm/dl (2.5-4.0); Potassium 4.4 mmol/L (3.5-5.1); Total Protein 7.1 gm/dl (6.0-8.3)
[2024-05-16 06:26] LABS: BUN Creatinine Ratio 28.8 (10-20); Calcium 9.1 mg/dl (8.6-10.3); Creatinine Clr Calc Pharmacy 69.1 ml/min; Magnesium 1.9 mg/dl (1.7-2.4)
--- NOTE | 2024-05-16 07:44 | Hospitalist Progress Note ---
Date of Service May 16, 2024 Assessment & Plan (1) COVID-19: Plan: ?if possibly contributing to presentation with increased memory issues and hallucinations over the week prior to admission. viral testing not obtained on admission but had not been hypoxic/no cough reported. [employer] testing POSITIVE for COVID on 05/15, newer cough on exam but now having afib/elevated rates and metoprolol increasing to 75mg BID and continues new entresto/jardiance for cardiomyopathy and new reduced EF Urine cx pending given incontinence/delirium to ensure not having UTI Isolation precautions placed/maintained Ordered incentive spirometry, supportive care as outside window for paxlovid/not hypoxic to benefit from steroids and will given xopenex neb x 1, duonebs prn and monitor for any escalation of treatment but supportive care for now. CXR without consolidative process Likely will prolong placement given need for isolation at this time, CM to follow (2) Atrial fibrillation: Plan: On admission, concerns for taking too much medication, possibly also taking sotalol in pill packs as discontinued earlier this year. Also has hx CHF (prior HFpEF, however see below) Initially placed metoprolol on hold but resumed w/ elevations in HR and increased to 75mg BID but had drops in HR/concerns for afib/flutter w/ tachybrady syndrome and cardiology consulted and reduced dose BB Synthroid increased for elevated TSH since February, suspect has been contributing to uncontrolled rates ECHO obtained w/ new reduction in EF to 35-40%, mild-mod AR, mod-severe MR, mild MS, mod TR. RVSP normal Started Entresto, Jardiance 05/14 for cardiomyopathy. Eventual plans for succinate HR elevations, possible worsening CHF/cough but not hypoxic and + COVID testing as above Discussed with Dr Xiao this morning, recs to increase metoprolol to 75mg PO BID Remains on eliquis BID Mag 1.9 and 1gm IV ordered given vtach 12 beat run PM 05/15 overnight and will keep mag/K replete and mointor on telemetry Appreciate further recs/assistance by cardiology (3) Confusion: Plan: Presented with increased confusion and hallucinations over the week leading to admission in the setting of CHRONIC cognitive impairment/dementia wandering outside looking for graddaughter. Also reports seeing who ~4 yrs ago. Hx MCA CVA. CT head/CTA head/neck and MRI brain NEGATIVE for acute process Possible toxic encephalopathy due to drugs, hypothyroidism undertreated, afib/flutter w/ ?tachybrady, cardiomyopathy w/ reduced EF, nowe with POSITIVE COVID-19 testing/cough -Suspect acute confusion is secondary to polypharmacy/possible accidental overdose of home medications +/- progression of dementia as well as afib/flutter, cardiomyopathy/CHF and now COVID in patient w/ significant dementia at baseline since CVA and delicate balance Tx afib/cardiomyopathy as above for new reduction in EF on ECHO, possibly worsened by uncontrolled HR Increased Synthroid to 75mcg daily and needs repeat TFT outpatient Lyme negative. B12 not deficient. Had been started on seroquel 25mg/50mg for agitation and requirement of restraints last week, since discontinued restraints/remaining off -Stopped home sertraline/buspar as suspected too much medication w/ usual remeron and added seroquel, also w/ concerns for hypotension w/ new entresto on 05/14 Seroquel PM dose REDUCED to 25mg, HELD AM dose 05/15 and reducing seroquel HS to 12.5mg as effective w/ low dose ativan 0.5mg and already on remeron 15mg HS and will monitor (sleep much better but fatigued and ?if related to COVID vs hypotension w/ new entresto and effects from too much seroquel and hadn't slept well last week) WORSENED DELIRIUM OVERNIGHT suspected due to new +COVID testing as above Checking UA/cx given start jardiance and incontinence (but reports from coughing). Not hypoxic. CXR negative for PNA Supportive care for covid/nebs for SOB/wheezing as needed and incentive spirometry. frequent orientation/delirium prevention strategies to be in place. (4) Cardiomyopathy: Plan: ECHO obtained to assess EF/valvular disease w/ tachy/anju concerns and pauses ECHO noting mild-moderately reduced LV systolic function (EF 35-40%), mild-mod AR, mod-severe MR, mild MS, mod TR. RVSP normal ?related to afib/flutter with uncontrolled rates Cards on consult, unclear etiology but per cards unlikely ischemic. Entresto/Jardiance as above, reduced seroquel to prevent hypotension issues Metoprolol increased for rate control, telemetry monitoring and eventual switch to succinate for reduced EF Will need f/u at dc (5) Bradycardia: Plan: Bradycardic in the 40s50s on admission. EKG w/ afib/slow ventricular rate, nonspecific TW abn on admission. Lyme testing negative. SYNTHROID INCREASED As above. Cards consulted for concerns tachybrady/need for pacemaker. --Family member not really wanting pacemaker but defer to cards on needs -- no mention at this time and recs to increase metoprolol as above and remains on telemetry (6) Hypothyroidism: Plan: TSH elevated and elevated in February and INCREASED Synthroid 75mcg daily. Will need repeat TFT outpt 4wks/adj as needed (7) Depression: Plan: depression/anxiety, increased w/ situational changes/hospitalization and home regimen consisted of : Buspar 7.5mg BID, remeron 15mg HS, sertaline 100mg HS and was started on seroquel on admission for agitation/aggression and suspected w/ AMS was on TOO MUCH medication and adjustments as above under "confusion" Plan at discharge to STOP buspar/sertraline and would opt to continue seroquel for depression/mood/sundowning and sleep as well as low dose ativan at rehab given anxiety in unfamiliar environment and has been tolerating since adding and has been continued. Did decrease seroquel to help prevent drops in BP and HOLDING AM seroquel for now/monitor for need to resume at lower dose 12.5mg if needed May need to reach out to psych for additional recs but will monitor w/ adjustments as above (8) Diabetes mellitus: Plan: A1c 6.9 On metformin 500mg BID, B12 not deficient Started on Jardiance for cardiomyopathy as above and continues SSI -- BSGs acceptable and will monitor/adj as needed UA/cx ordered, messaged RN to collect for eval given incontinence this morning (although reports from coughing) to ensure not having UTI contributing to MS as above (9) Hypertension: Plan: [employer] on metoprolol 100mg BID, lisinopril 2.5mg Lisinopril held--> now on entresto Metoprolol resumed/increasing to 75mg BID for rate control and plans for succinate for above. 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 Appears prior rx for prn lasix for edema. Now with HF with REDUCED EF to 35-40% as above Started Entresto, Jardiance 05/14, continued for now unless evidence for UTI remains on BB, dose increased as above but plan to switch to succinate eventually for reduced EF/cardiomyopathy Does have some LE edema but does not appear significant volume overload. 96% on RA and CXR without pulm edema and weight DOWN in the system Monitor/diuretics possible pending repeat exam but monitoring w/ new entresto/jardiance Plan Code status: remains full code. DVT proph: eliquis BID continued Dispo: continued inpatient stay, now positive for COVID/isolation precautions in place but on room air Eventual plans for [place] rehab next week when bed available but may be prolonged given now with positive covid testing. Updated daughter Domi via phone 05/14, left for [employer] this morning. Updated daughter Maria Antonia today (05/16). Her number is [phone] if needed but will not be visiting today given covid testing. Son/uncle Ronny available if needed for finances and # on yellow sticky if needed. Admission and Anticipated Discharge Date Admission Date: May 06, 2024 Supervising Physician Co-Signing Physician Notes The patient was not seen by me. The chart was reviewed. Case discussed with ADALBERTO Cook. Agree with assessment and plan Subjective Eval this morning, changed room due to COVID-19 testing. She thought she was initially taken out on an ambulance but reports she was told she had COVID-19. Discussed changing room for isolation. She is upset about urinating herself from coughing and does endorse some shortness of breath. On room air but +wet cough, agreeable to breathing treatment. Initially reported year 2019, incorrect month. Suspect worsening delirium w/ COVID-19/room changes and will continue frequent orientation. Ok w/ call to update her son. Appetite fair/poor today. HRs variable and increasing metoprolol for rate control. Physical Exam Physical Exam: General: 69yo female sitting up in bed, appears fatigued today/whiped out, +wet sounding cough, general pallor HEENT; head atraumatic, normocephalic, mm moist/slightly dry, trachea midline Resp: even/unlabored, slightly diminished in the bases but improved and without wheezing/rales but faint crackles posteriorly/lower lobes, +cough, no tachypnea, 96% on RA CV: irregularly irregular, rates elevated at times overnight but 90s this morning (up to 180s overnight), trace LE edema but calves nontender GI: +BS, soft/nontender but slight suprapubic fullness ; no xavier MSK/Neuro: nonfocal and answering questions appropriately. has L sided neglect from CVA at baseline. no slurred speech/facial droop, able to follow commands as asked Psych: alert to person, knows in hospital but thought she left in ambulance overnight, slightly confused to month/events but anxious at times/support provided. No new focal deficits/weakness compared to prior exams but does have some generalized weakness/fatigue Results & Data Results & Data Vital Signs (Past 12 Hours) Vital Signs Temp Pulse Pulse Resp BP Pulse Ox O2 Del Method 05/16/24 07:14 88 05/16/24 03:01 37.0 C 95 H 18 120/72 96 Room Air 05/15/24 22:09 92 H 05/15/24 21:32 Room Air 05/15/24 20:12 99 H Laboratory Results 05/16/24 05/15/24 05/15/24 Range/Units 04:58 20:14 19:54 WBC 6.17 (4.8-10.8) K/ul RBC 4.79 (4.20-5.40) M/uL Hgb 14.2 (12.0-16.0) g/dl Hct 43.5 (37.0-47.0) % MCV 90.8 (80.0-100.0) fL MCH 29.6 (25.0-34.0) pg MCHC 32.6 (32.0-36.0) g/dL RDW Std Deviation 46.5 H (36.4-46.3) fL RDW Coeff of Katt 14.1 (11.5-14.5) % Plt Count 207 (130-400) K/uL MPV 10.9 (9.4-12.4) fL Sodium 138 136 (136-145) mmol/L Potassium 4.0 4.4 (3.5-5.1) mmol/L Chloride 105 103 (98-107) mmol/L Carbon Dioxide 24 25 (21-32) mmol/L Anion Gap 9 8 (3-11) BUN 23 27 H (6-23) mg/dl Creatinine 0.80 D 1.29 H D (0.6-1.2) mg/dl Est Cr Clr Drug Dosing 69.1 43.5 ml/min eGFR 78.72 44.37 BUN/Creatinine Ratio 28.8 H 20.9 H (10-20) Glucose 129 H 165 H (70-99(Fasting)) mg/dl POC Glucose 144 H (70-99) mg/dl Calcium 9.1 9.5 (8.6-10.3) mg/dl Magnesium 1.9 (1.7-2.4) mg/dl Total Bilirubin 0.7 (0.2-1.0) mg/dl AST 19 (13-39) U/L ALT 14 (7-52) U/L Alkaline Phosphatase 77 (34-104) U/L Total Protein 7.1 (6.0-8.3) gm/dl Albumin 4.4 (3.4-5.0) gm/dl Globulin 2.7 (2.5-4.0) gm/dl Albumin/Globulin Ratio 1.6 (0.9-2) Adenovirus (PCR) (NotDetected) B. pertussis DNA (PCR) (NotDetected) B.parapertussis DNA PCR (NotDetected) C. pneumoniae DNA (PCR) (NotDetected) Coronavirus OC43 (PCR) (NotDetected) Coronavirus HKU1 (PCR) (NotDetected) Coronavirus 229E (PCR) (NotDetected) SARS-CoV-2 (PCR) (NotDetected) Coronavirus NL63 (PCR) (NotDetected) Human Metapneumovir PCR (NotDetected) Influenza Type A (PCR) (NotDetected) Influenza Type B (PCR) (NotDetected) M. pneumoniae (PCR) (NotDetected) Parainfluenza 1 (PCR) (NotDetected) Parainfluenza 2 (PCR) (NotDetected) Parainfluenza 3 (PCR) (NotDetected) Parainfluenza 4 (PCR) (NotDetected) RSV (PCR) (NotDetected) Entero/Rhino (PCR) (NotDetected) 05/15/24 05/15/24 05/15/24 Range/Units 19:46 17:30 17:08 WBC (4.8-10.8) K/ul RBC (4.20-5.40) M/uL Hgb (12.0-16.0) g/dl Hct (37.0-47.0) % MCV (80.0-100.0) fL MCH (25.0-34.0) pg MCHC (32.0-36.0) g/dL RDW Std Deviation (36.4-46.3) fL RDW Coeff of Katt (11.5-14.5) % Plt Count (130-400) K/uL MPV (9.4-12.4) fL Sodium (136-145) mmol/L Potassium (3.5-5.1) mmol/L Chloride (98-107) mmol/L Carbon Dioxide (21-32) mmol/L Anion Gap (3-11) BUN (6-23) mg/dl Creatinine (0.6-1.2) mg/dl Est Cr Clr Drug Dosing ml/min eGFR BUN/Creatinine Ratio (10-20) Glucose (70-99(Fasting)) mg/dl POC Glucose 150 H 149 H (70-99) mg/dl Calcium (8.6-10.3) mg/dl Magnesium (1.7-2.4) mg/dl Total Bilirubin (0.2-1.0) mg/dl AST (13-39) U/L ALT (7-52) U/L Alkaline Phosphatase (34-104) U/L Total Protein (6.0-8.3) gm/dl Albumin (3.4-5.0) gm/dl Globulin (2.5-4.0) gm/dl Albumin/Globulin Ratio (0.9-2) Adenovirus (PCR) Not Detected (NotDetected) B. pertussis DNA (PCR) Not Detected (NotDetected) B.parapertussis DNA PCR Not Detected (NotDetected) C. pneumoniae DNA (PCR) Not Detected (NotDetected) Coronavirus OC43 (PCR) Not Detected (NotDetected) Coronavirus HKU1 (PCR) Not Detected (NotDetected) Coronavirus 229E (PCR) Not Detected (NotDetected) SARS-CoV-2 (PCR) DETECTED A (NotDetected) Coronavirus NL63 (PCR) Not Detected (NotDetected) Human Metapneumovir PCR Not Detected (NotDetected) Influenza Type A (PCR) Not Detected (NotDetected) Influenza Type B (PCR) Not Detected (NotDetected) M. pneumoniae (PCR) Not Detected (NotDetected) Parainfluenza 1 (PCR) Not Detected (NotDetected) Parainfluenza 2 (PCR) Not Detected (NotDetected) Parainfluenza 3 (PCR) Not Detected (NotDetected) Parainfluenza 4 (PCR) Not Detected (NotDetected) RSV (PCR) Not Detected (NotDetected) Entero/Rhino (PCR) Not Detected (NotDetected) 05/15/24 05/15/24 05/15/24 Range/Units 12:35 08:32 07:19 WBC (4.8-10.8) K/ul RBC (4.20-5.40) M/uL Hgb (12.0-16.0) g/dl Hct (37.0-47.0) % MCV (80.0-100.0) fL MCH (25.0-34.0) pg MCHC (32.0-36.0) g/dL RDW Std Deviation (36.4-46.3) fL RDW Coeff of Katt (11.5-14.5) % Plt Count (130-400) K/uL MPV (9.4-12.4) fL Sodium 141 (136-145) mmol/L Potassium 4.0 (3.5-5.1) mmol/L Chloride 107 (98-107) mmol/L Carbon Dioxide 26 (21-32) mmol/L Anion Gap 8 (3-11) BUN 24 H (6-23) mg/dl Creatinine 0.90 (0.6-1.2) mg/dl Est Cr Clr Drug Dosing 62.3 ml/min eGFR 68.35 BUN/Creatinine Ratio 26.7 H (10-20) Glucose 133 H (70-99(Fasting)) mg/dl POC Glucose 178 H 158 H (70-99) mg/dl Calcium 9.3 (8.6-10.3) mg/dl Magnesium 2.0 (1.7-2.4) mg/dl Total Bilirubin (0.2-1.0) mg/dl AST (13-39) U/L ALT (7-52) U/L Alkaline Phosphatase (34-104) U/L Total Protein (6.0-8.3) gm/dl Albumin (3.4-5.0) gm/dl Globulin (2.5-4.0) gm/dl Albumin/Globulin Ratio (0.9-2) Adenovirus (PCR) (NotDetected) B. pertussis DNA (PCR) (NotDetected) B.parapertussis DNA PCR (NotDetected) C. pneumoniae DNA (PCR) (NotDetected) Coronavirus OC43 (PCR) (NotDetected) Coronavirus HKU1 (PCR) (NotDetected) Coronavirus 229E (PCR) (NotDetected) SARS-CoV-2 (PCR) (NotDetected) Coronavirus NL63 (PCR) (NotDetected) Human Metapneumovir PCR (NotDetected) Influenza Type A (PCR) (NotDetected) Influenza Type B (PCR) (NotDetected) M. pneumoniae (PCR) (NotDetected) Parainfluenza 1 (PCR) (NotDetected) Parainfluenza 2 (PCR) (NotDetected) Parainfluenza 3 (PCR) (NotDetected) Parainfluenza 4 (PCR) (NotDetected) RSV (PCR) (NotDetected) Entero/Rhino (PCR) (NotDetected) Diagnostic Findings Chest X-Ray 05/16/24 09:12 XR chest 1V portable CLINICAL HISTORY: +COVID COMPARISON STUDY: Chest radiograph May 04, 2024. FINDINGS: Lung volumes are normal. Lungs are clear. There is no pneumothorax or pleural effusion. Moderate cardiomegaly is unchanged. Mediastinal contours are normal. There is no evidence for pulmonary edema. IMPRESSION: No acute cardiopulmonary findings. No change in appearance of the chest. Cardiomegaly. ACT 112: Negative or not required by law. Electronically signed by: Sourav Norton M.D. 05/16/2024 9:51 AM PG Care Time/CCT Total # of Minutes Spent Total Time Spent with Patient: Total time spent is greater than 50% in coordination of care (as documented) at patient's floor/unit and/or counseling patient: Coding Level of Care Code 84132 SUB INP/OBS CARE 3/50MIN Diagnoses COVID-19 U07.1 Atrial fibrillation I48.91 Confusion R41.0 Cardiomyopathy I42.9 Bradycardia R00.1 Hypothyroidism E03.9 Depression F32.9 Diabetes mellitus E11.9 Hypertension I10 Left-sided visual neglect R41.4 Chronic diastolic CHF (congestive heart failure) I50.32
[2024-05-16] MEDS ORDERED: ALBUT/IPRATROP 3MG/0.5MG NEB 3 ML VIAL NEB PRN (07:49)
[2024-05-16] MEDS: MAGNESIUM SULFATE / D5W 1 GM/100 ML BAG IV ONE (09:12)
--- NOTE | 2024-05-16 09:54 | XRay Report ---
XR chest 1V portable CLINICAL HISTORY: +COVID COMPARISON STUDY: Chest radiograph May 04, 2024. FINDINGS: Lung volumes are normal. Lungs are clear. There is no pneumothorax or pleural effusion. Mod erate cardiomegaly is unchanged. Mediastinal contours are normal. There is no evidence for pulmonary edema. IMPRESSION: No acute cardiopulmonary findings. No change in appearance of the chest. Cardiomegaly. ACT 112: Negative or not required by law. Electronically signed by: Sourav Norton M.D. 05/16/2024 9:51 AM
[2024-05-16] MEDS: LEVALBUTEROL HCL 0.63 MG/3 ML NEB NEB STA (12:18)
--- NOTE | 2024-05-16 14:13 | Electrocardiogram Report ---
Test Reason : Blood Pressure : */* mmHG Vent. Rate : 126 BPM Atrial Rate : 394 BPM P-R Int : * ms QRS Dur : 74 ms QT Int : 326 ms P-R-T Axes : * -37 51 degrees QTcB Int : 472 ms Atrial fibrillation with rapid ventricular response Left axis deviation Minimal voltage criteria for LVH, may be normal variant Abnormal ECG When compared with ECG of 06-May-2024 11:01, Vent. rate has increased by 74 bpm Confirmed by Christofer Chappell ([id number]) on 05/16/2024 2:13:42 PM Referred By: REFERRED SELF Confirmed By: Christofer Chappell
[2024-05-16] MEDS: QUEtiapine FUMARATE 25 MG TABLET PO SCH (19:57)
[2024-05-16] MEDS: guaiFENesin 600 MG TABCR PO SCH (19:57)
[2024-05-16] MEDS: METOPROLOL TARTRATE 50 MG TAB PO SCH (19:58)
[2024-05-17] MEDS: CETIRIZINE HCL 10 MG TABLET PO ONE (01:23)
--- NOTE | 2024-05-17 07:46 | Hospitalist Progress Note ---
Date of Service May 17, 2024 Assessment & Plan (1) COVID-19: Plan: ?if possibly contributing to presentation with increased memory issues and hallucinations over the week prior to admission. viral testing not obtained on admission but had not been hypoxic/no cough reported PRIOR [employer] testing POSITIVE for COVID on 05/15, newer cough on exam but on RA/no hypoxia and isolation precautions placed/moved to isolation room. CXR without consolidation MENTATION MUCH IMPROVED 05/17, LESS COUGH, DENIES SIGNIFICANT SOB TODAY w/ Xopenex/mucinex overnight Did have temp 38.1C overnight, tylenol effective Continue supportive care w/ incentive spirometry, mucinex BID Xopenex made q8h scheduled as not given any further PRN (avoiding albuterol to prevent worsening tachycardia w/ afib/flutter) and HR remaining stable on 75mg BID for now WBC low, suspect 2nd to viral process. Hgb stable. BUN/Cr stable. No further fever this morning but tylenol available/monitoring and feeling much better/mentation MUCH improved (denies urinary sx today but did have incontinence w/ coughing on 05/16). Urine cx pending given incontinence/delirium to ensure not having UTI given start Jardiance. Weights down w/ Jardiance/not given lasix as no increased LE edema/hypoxia but can consider if needing to hold/UA+ --Bcx 1 ordered but lactic and procal checked and not elevated/procal <0.02 Frequent orientation, maintain day/night schedules Continues on tx w/ Entresto for CHF/reduced EF, increased metoprolol 75m BID w/ improvement rate control. Did order 1gm IV mag ordered to keep closer to 2 and remains on increased metoprolol 75mg BID and appreciate recs/assistance from Cardiology (2) Atrial fibrillation: Plan: Concerns for taking too much medication at home +/- prior dc'd sotalol. TSH elevated, Synthroid adjusted. Initially held metoprolol but resumed for rate control Concerns for afib/flutter with tachybrady and cardiology consulted and metoprolol resumed/increased but with pauses however continued on 50mg BID and checked ECHO for further eval which noted new reduction in EF and started on jardiance/entresto 05/14 and continues on such. Metoprolol increased to 75mg BID for rate control 05/16, improvement in rates. No further drops/pauses and will continue current dose and plan to switch to metoprolol at discharge. Remains on telemetry, eliquis BID. keep mag/K replete (3) Confusion: Plan: Multifactorial - Possible toxic encephalopathy due to drugs * Presented with increased confusion and hallucinations over the week leading to admission in the setting of CHRONIC cognitive impairment/dementia wandering outside looking for granddaughter. Also reports seeing who ~4 yrs ago. Hx MCA CVA. CT head/CTA head/neck and MRI brain NEGATIVE for acute process * Lyme negative, B12 not deficient. Suspect combination of medications, undertreated hypothyroidism/afib, dementia w/ delirium and CHF with new reduction in ER. Now with + COVID testing and slightly more confused on 05/15 PM prompting swab and + cough on 05/16 with worsening confusion/delirium with room change as well as suspected meds for depression/anxiety/agitation however adjustments as below and MUCH IMPROVED 05/17 --> Had been newly started seroquel 25mg/50mg for agitation and need for restraints last week. Suspected with her prior remeron 15mg HS and buspar/sertaline 100mg HS TOO MUCH and held buspar/sertaline and continued seroquel however reduced dose PM/held AM dose as given LOW DOSE ativan to sleep which was very effective last night/continued however given start entresto/risk for hypotension and worsened renal function, made further adjustments and presently would continue the following: * Seroquel 12.5mg HS to help with mood/sundowning in patient w/ dementia/delirium. STOP/avoid further AM dosing unless needed but appearing great this morning * Continue Remeron 15mg HS, decreased ativan to 0.25mg but can increase back to 0.5mg if needed as had been tolerating/mentation much improved UA/cx pending as above given start Jardiance Supportive care for #1, steroids if develops hypoxia but 95% on RA this afternoon (4) Cardiomyopathy: Plan: ECHO obtained to assess EF/valvular disease w/ tachy/anju concerns and pauses ECHO noting mild-moderately reduced LV systolic function (EF 35-40%), mild-mod AR, mod-severe MR, mild MS, mod TR. RVSP normal ?related to afib/flutter with uncontrolled rates Cards consulted, unclear etiology but per cards unlikely ischemic. Entresto/Jardiance started/continued as above. Metoprolol increased for rate control/switch to succinate as able if rates remaining stable w/ present dose (improved from 05/16) Further reduced seroquel while on entresto prevent JAKUB/hypotension and BP stable presently Will need f/u at dc (5) Bradycardia: Plan: Bradycardic in the 40s50s on admission. EKG w/ afib/slow ventricular rate, nonspecific TW abn on admission. Lyme testing negative. Synthroid adjustment. Cards consulted for concerns for need for pacemaker and no plans at this time/continue metoprolol as above (6) Hypothyroidism: Plan: TSH elevated and elevated in February and INCREASED Synthroid 75mcg daily. Will need repeat TFT outpt 4wks/adj as needed (7) Depression: Plan: depression/anxiety, increased w/ situational changes/hospitalization and home regimen consisted of : Buspar 7.5mg BID, remeron 15mg HS, sertraline 100mg HS and was started on seroquel on admission for agitation/aggression and suspected w/ AMS was on TOO MUCH medication MOOD STABLE LUNCH TIME 05/17, no significant anxiety and improved mood/loving her fruit for lunch and reports feeling better today with reduction in seroquel dosing/holding AM dosing but will continue lower HS dosing with her remeron as well as low dose ativan to help sleep while inpatient as had been effective/tolerated well. Would plan to dc buspar at dc (+/- sertaline) and opt for low dose seroquel for sundowning w/ hx dementia as had improvements but just suspect too high dose anastacia w/ new start of other medications Continued support provided, missing her cats at home (8) Diabetes mellitus: Plan: A1c 6.9 On metformin 500mg BID, B12 not deficient Started on Jardiance for cardiomyopathy as above and continues SSI -- BSGs acceptable and will monitor/adj as needed UA/cx ordered, messaged RN to collect for eval given incontinence this morning (although reports from coughing) to ensure not having UTI contributing to MS as above however no abx/procal negative and mentation improved without abx at present but will monitor (9) Hypertension: Plan: [employer] on metoprolol 100mg BID, lisinopril 2.5mg Lisinopril held--> now on entresto Metoprolol resumed/increased/continued at 75mg BID for rate control and plans for succinate for above with improvement in rates/no drops reported with increase as had previously REDUCED seroquel as above given notable bump in Cr 1.2 prior evening but appearing stable on repeat without intervention and stable with reduction in seroquel and will continue for cardiomyopathy with reduction in ED. 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 Appears prior rx for prn lasix for edema. Now with HF with REDUCED EF to 35-40% as above Started Entresto, Jardiance 05/14, continued for now Metoprolol as outlined, plan for succinate at dc Some LE edema but less today without diuretics and weights down w/ jardiance and suspect promoting diuresis w/ her entresto for cardiomyopathy and 95% on RA without cough today and will monitor on current regimen Will need CHF clinic f/u at discharge Plan DVT proph: dionne BID continued Updated granddaughter Maria Antonia via phone 05/16, 05/17 as daughter Domi out of town/in [facility]. Her number is [phone] and request updates daily. Also was provided # for son/uncle Ronny [phone] and apparently had issues with obtaining update from nursing overnight again and was connected with information for service excellence. Did discussed prior about updating one family member daily/point of contact but should not be having as many issues w/ general update from nursing regarding his mother and hopefully will not have any further issues. Instructed to call if needing to talk to provider if not already updating granddaughter but I have been updating Maria Antonia as primary contact as instructed at this time as brother also supposed to be flying out/traveling however I do not know if those plans have changed. In either case, please update family daily to prevent any issues and to assist in the care of Ms Lexa. Dispo: rehab/[facility]CH planned EVENTUALLY, now w/ COVID and plan was for [facility] however per CM they do not have isolation room available and policy is to isolate 10 days from positive testing. CM following Admission and Anticipated Discharge Date Admission Date: May 06, 2024 Subjective Evaluated this afternoon following lunch, sitting up in bed eating fruit. Apologies for being "angry" yesterday, and reporting feeling MUCH better. Alert/oriented to person, knows in hospital, year in and intermittent to month but much improved and suspect delirium w/ covid/room change. Reports less cough/sputum production and able to expectorate with Mucinex and will continue. Nebs ordered as needed. Discussed HR, metoprolol adjustment and adjustment to Seroquel and will just continue at night for now w/ low dose Ativan for anxiety/sleep. Questions/concerns addressed at this time. Ok with updating family, call for this morning.-- call to Maria Antonia, uncle was told not on the list. Never went into ask her for permission per Maria Antonia, uncle was very upset/given number for service excellence. Issues overnight but now on the list/hopefully no other issues. Physical Exam 2 Physical Exam: General: 69yo female sitting up in bed, reports feeling MUCH better today/less confused but still a little fatigued however very thankful for feeling better today/less cough HEENT; head atraumatic, normocephalic, mm moist, trachea midline Resp: even/unlabored, faint bilateral crackles but no significant wheezing/rales, on room air CV: irregularly irregular, rates elevated at times but overall much improved, trace pedal edema but calves soft/nontender and pulses present GI: +BS, soft/nontender, slight suprapubic fullness DECREASED today ; no xavier MSK/Neuro: nonfocal and answering questions appropriately. has L sided neglect from CVA at baseline. no slurred speech/facial droop, able to follow commands as asked Psych: alert to person, knows in hospital today, reports less confused, year but unable to tell me the month MUCH less confused today, in good spirits, LESS depressed/anxious appearing Results & Data Results & Data Vital Signs (Past 12 Hours) Vital Signs Temp Pulse Pulse Resp BP Pulse Ox O2 Del Method 05/17/24 06:59 91 H 05/17/24 02:56 38.1 C H 101 H 19 118/74 95 Room Air 05/16/24 22:19 92 H 05/16/24 22:15 36.8 C 82 19 128/73 94 Room Air 05/16/24 20:02 Room Air 05/16/24 19:52 38.1 C H 110 H 22 137/58 L 96 Room Air Laboratory Results 05/17/24 08:00 05/17/24 08:00 Lactic 1.1 TB/LFTs wnl Procal <0.02 Diagnostic Findings Chest X-Ray 05/16/24 09:12 XR chest 1V portable CLINICAL HISTORY: +COVID COMPARISON STUDY: Chest radiograph May 04, 2024. FINDINGS: Lung volumes are normal. Lungs are clear. There is no pneumothorax or pleural effusion. Moderate cardiomegaly is unchanged. Mediastinal contours are normal. There is no evidence for pulmonary edema. IMPRESSION: No acute cardiopulmonary findings. No change in appearance of the chest. Cardiomegaly. ACT 112: Negative or not required by law. Electronically signed by: Sourav Norton M.D. 05/16/2024 9:51 AM PG Care Time/CCT Total # of Minutes Spent Total Time Spent with Patient: Total time spent is greater than 50% in coordination of care (as documented) at patient's floor/unit and/or counseling patient: Coding Level of Care Code 89568 SUB INP/OBS CARE 3/50MIN Diagnoses COVID-19 U07.1 Atrial fibrillation I48.91 Confusion R41.0 Cardiomyopathy I42.9 Bradycardia R00.1 Hypothyroidism E03.9 Depression F32.9 Diabetes mellitus E11.9 Hypertension I10 Left-sided visual neglect R41.4 Chronic diastolic CHF (congestive heart failure) I50.32
[2024-05-17] MEDS: FLUTICASONE PROPIONATE NA SPR 16 GM BTL SCH (08:19)
[2024-05-17 08:27] LABS: Basophils # (auto) 0.03 K/uL (0.00-0.20); Basophils % (auto) 0.7 %; Eosinophils # (auto) 0.07 K/uL (0.00-0.50); Eosinophils % (auto) 1.7 %; Hematocrit (blood only) 41.4 % (37.0-47.0); Hemoglobin 14.1 g/dl (12.0-16.0); Immature Granulocytes # (auto) 0.01 K/uL (0.01-0.20); Immature Granulocytes % (auto) 0.2 %; Lymphocytes # (auto) 1.08 K/uL (1.20-3.40); Lymphocytes % (auto) 25.5 %; Mean Corpuscular Hemoglobin 30.6 pg (25.0-34.0); Mean Corpuscular Hgb Conc 34.1 g/dL (32.0-36.0); Mean Corpuscular Volume 89.8 fL (80.0-100.0); Monocytes # (auto) 0.53 K/uL (0.11-0.59); Monocytes % (auto) 12.5 %; Neutrophils # (auto) 2.52 K/uL (1.40-6.50); Neutrophils % (auto) 59.4 %; Platelet Count 178 K/uL (130-400); RDW Coefficient of Variation 14.1 % (11.5-14.5); RDW Standard Deviation 46.4 fL (36.4-46.3); Red Blood Count 4.61 M/uL (4.20-5.40); White Blood Count 4.24 K/ul (4.8-10.8)
[2024-05-17 08:40] LABS: Albumin Globulin Ratio 1.5 (0.9-2); Albumin Level 3.9 gm/dl (3.4-5.0); BUN Creatinine Ratio 23.2 (10-20); Bilirubin,Total 0.6 mg/dl (0.2-1.0); Creatinine Clr Calc Pharmacy 59.2 ml/min; Globulin 2.6 gm/dl (2.5-4.0); Magnesium 1.8 mg/dl (1.7-2.4); Potassium 4.3 mmol/L (3.5-5.1); Total Protein 6.5 gm/dl (6.0-8.3)
[2024-05-17] MEDS: MAGNESIUM SULFATE / D5W 1 GM/100 ML BAG IV ONE (10:26)
[2024-05-17 12:03] LABS: Appearance Urine Clear (Clear); Bilirubin Urine Negative (Negative); Blood Urine Negative (Negative); Color Urine Yellow; Glucose Urine UA 3+ (Negative); Ketones Urine Trace (Negative); Leukocyte Esterase Urine Negative (Negative); Nitrite Urine Negative (Negative); Protein Urine Negative (Negative); Specific Gravity Urine 1.032 (1.000-1.030); Urobilinogen Urine Negative (Negative); pH Urine 5.5 (4.5-7.5)
[2024-05-17] MEDS: LEVALBUTEROL HCL 0.63 MG/3 ML NEB NEB SCH (14:31)
[2024-05-17] MEDS: LORazepam 0.5 MG TAB PO SCH (20:28)
[2024-05-18 06:22] LABS: BUN Creatinine Ratio 21.1 (10-20); Creatinine Clr Calc Pharmacy 48.5 ml/min; Potassium 4.7 mmol/L (3.5-5.1)
[2024-05-18] MEDS: MICONAZOLE NITRATE POWDER 85 GM EXT SCH (11:17)
--- NOTE | 2024-05-18 16:03 | Hospitalist Progress Note ---
Date of Service May 18, 2024 Assessment & Plan (1) COVID-19: Plan: [employer] testing POSITIVE for COVID on 05/15 - CXR without consolidation - No hypoxia, stable on room air - Lactate and procal WNL - Blood cultures, prelim negative x 24 hours - Continue supportive care with incentive spirometry, Mucinex BID, Xopenex (avoiding albuterol to prevent worsening tachycardia with a-fib/flutter) (2) Atrial fibrillation: Plan: Concerns for taking too much medication at home +/- prior dc'd sotalol - TSH elevated, Synthroid adjusted. - Initially held metoprolol but resumed for rate control - Remains on telemetry, Eliquis BID. Keep mag/K replete A-fib/flutter with tachybrady syndrome / CHF / Cardiomyopathy - Cardiology consulted: unclear etiology but unlikely to be ischemic. - Echo noted new reduction in EF to 35-40%, mod-severe mitral regurgitation - Started on Jardiance/Entresto 05/14 and continues on such. Lisinopril discontinued > Follow-up with CHF clinic at discharge - Metoprolol tartrate increased to 75mg BID, improvement in rates > Plan to switch to metoprolol succinate at discharge (3) Confusion: Plan: Multifactorial - Possible toxic encephalopathy due to drugs * Presented with increased confusion and hallucinations over the week leading to admission in the setting of CHRONIC cognitive impairment/dementia wandering outside looking for granddaughter. Also reports seeing who ~4 yrs ago. Hx MCA CVA. CT head/CTA head/neck and MRI brain NEGATIVE for acute process * Lyme negative, B12 not deficient. * Suspect combination of medications, undertreated hypothyroidism/afib, dementia w/ delirium and CHF with new reduction in EF Urine culture checked given incontinence/delirium to ensure not having UTI since starting Jardiance; negative Frequent orientation, maintain day/night schedules (4) Depression: Plan: Depression/anxiety, increased with situational changes/hospitalization and home regimen consisted of : BuSpar 7.5mg BID, Remeron 15mg HS, sertraline 100mg HS and was started on Seroquel on admission for agitation/aggression. Suspect AMS at least in part due to polypharmacy. Multiple adjustments have been made to her regimen. Continue the following: - Seroquel 12.5mg HS to help with mood/sundowning in patient w/ dementia/delirium. > STOP/avoid further AM dosing unless needed > Seroquel dose reduced from prior to prevent JAKUB/hypotension while on Entresto. BPs have been stable - Remeron 15mg HS, decreased Ativan to 0.25mg but can increase back to 0.5mg if needed as had been tolerating/mentation much improved - Ativan 0.25 mg HS Would plan to discontinue BuSpar at discharge (+/- sertraline) and opt for low dose Seroquel for sundowning with history of dementia Continued support provided (5) Hypothyroidism: Plan: TSH elevated and elevated in February and INCREASED Synthroid 75mcg daily. - Will need repeat TFT outpatient in 4 weeks. Adjust as needed (6) Diabetes mellitus: Plan: A1c 6.9 On metformin 500mg BID, B12 not deficient Started on Jardiance for cardiomyopathy as above and continues SSI -- BSGs acceptable and will monitor/adj as needed (7) Hypertension: Plan: Prior to admission, was on metoprolol 100mg BID, lisinopril 2.5mg Lisinopril discontinued --> now on entresto Metoprolol resumed/increased/continued at 75mg BID for rate control and plans to transition to succinate on discharge (8) Left-sided visual neglect: Plan: from [facility] CVA Plan Attempted to call granddaughter, no answer, left voicemail 05/18 Updated granddaughter Maria Antonia via phone 05/16, 05/17 as daughter Domi out of town/in [facility]. Her number is [phone] and request updates daily. Also was provided # for son/uncle Ronny [phone] and apparently had issues with obtaining update from nursing overnight again and was connected with information for service excellence. Did discussed prior about updating one family member daily/point of contact but should not be having as many issues w/ general update from nursing regarding his mother and hopefully will not have any further issues. Instructed to call if needing to talk to provider if not already updating granddaughter but I have been updating Maria Antonia as primary contact as instructed at this time as brother also supposed to be flying out/traveling however I do not know if those plans have changed. In either case, please update family daily to prevent any issues and to assist in the care of Ms Lexa. Dispo: rehab/PCH planned EVENTUALLY, now with COVID and plan was for [facility] however per CM they do not have isolation room available and policy is to isolate 10 days from positive testing. CM following VTE PPx: Mu BID CODE STATUS: Full code Admission and Anticipated Discharge Date Admission Date: May 06, 2024 Subjective Patient seen and evaluated at bedside. She reports feeling short of breath with ambulation to the bathroom, but denies any difficulty breathing at rest. She notes an intermittent cough, but cannot remember if it is productive or not. She did not have any coughing during my visit. She continues to have waxing/waning mentation. No additional complaints or concerns at this time. Physical Exam Physical Exam: General: No acute distress, nondiaphoretic, well-developed, well-nourished. Skin: Rash noted under breasts and groin area. Cardiac: Irregularly irregular in the 60s. No murmurs, gallops or rubs appreciated. Pulm: Faint bilateral crackers, no wheezing/rales appreciated. No respiratory distress. 97% on room air. Abdominal: Soft, nontender, nondistended. Bowel sounds present. Neuro: A&O x3 (person, place, event; not time). No focal neurological deficits. Results & Data Results & Data Vital Signs (Past 12 Hours) Vital Signs Temp Pulse Resp BP Pulse Ox O2 Del Method 05/18/24 15:45 66 16 98 Room Air 05/18/24 10:56 97.5 F L 60 17 105/69 96 Room Air 05/18/24 07:45 60 16 96 Room Air 05/18/24 07:41 97.9 F 65 16 113/76 95 Room Air Laboratory Results Reviewed BMP Reviewed urine culture Reviewed blood culture PG Care Time/CCT Total # of Minutes Spent Total Time Spent with Patient: Total time spent is greater than 50% in coordination of care (as documented) at patient's floor/unit and/or counseling patient: Coding Level of Care Code 14858 SUB INP/OBS CARE 2/35MIN Diagnoses COVID-19 U07.1 Atrial fibrillation I48.91 Confusion R41.0 Depression F32.9 Hypothyroidism E03.9 Diabetes mellitus E11.9 Hypertension I10 Left-sided visual neglect R41.4
[2024-05-18] MEDS: MICONAZOLE NITRATE POWDER 85 GM EXT PRN (20:19)
--- NOTE | 2024-05-19 08:08 | Hospitalist Progress Note ---
Date of Service May 19, 2024 Assessment & Plan (1) COVID-19: Plan: [employer] testing POSITIVE for COVID on 05/15 - CXR without consolidation - No hypoxia, stable on room air - Lactate and procal WNL - Blood cultures, prelim negative x 24 hours - Continue supportive care with incentive spirometry, Mucinex BID, Flonase inhaler daily, Duoneb PRN, Xopenex Q8H (avoiding albuterol to prevent worsening tachycardia with a-fib/flutter) - Plan was discharge to [facility], however their policy is 10 days of isolation from testing positive for Covid and they do not have any isolation beds at this time (2) Atrial fibrillation: Plan: Concerns for taking too much medication at home +/- prior dc'd sotalol - TSH elevated, Synthroid adjusted. - Initially held metoprolol but resumed for rate control - Remains on telemetry, Eliquis BID. Keep mag/K replete A-fib/flutter with tachybrady syndrome / CHF / Cardiomyopathy - Cardiology consulted: unclear etiology but unlikely to be ischemic. - Echo noted new reduction in EF to 35-40%, mod-severe mitral regurgitation - Started on Jardiance/Entresto 05/14 and continues on such. Lisinopril discontinued > Follow-up with CHF clinic at discharge - Continue Metoprolol tartrate 75mg BID, improvement in rates > Plan to switch to metoprolol succinate at discharge (3) Confusion: Plan: Multifactorial - Possible toxic encephalopathy due to drugs * Presented with increased confusion and hallucinations over the week leading to admission in the setting of CHRONIC cognitive impairment/dementia wandering outside looking for granddaughter. Also reports seeing who ~4 yrs ago. Hx MCA CVA. CT head/CTA head/neck and MRI brain NEGATIVE for acute process * Lyme negative, B12 not deficient. * Suspect combination of medications, undertreated hypothyroidism/afib, dementia w/ delirium and CHF with new reduction in EF Urine culture checked given incontinence/delirium to ensure not having UTI since starting Jardiance; negative Frequent orientation, maintain day/night schedules (4) Hypothyroidism: Plan: TSH elevated and elevated in February and INCREASED Synthroid 75mcg daily. - Will need repeat TFT outpatient in 4 weeks. 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 Her number is [phone] and request updates daily. Also was provided # for son/uncle Ronny [phone] and apparently had issues with obtaining update from nursing overnight again and was connected with information for service excellence. Did discussed prior about updating one family member daily/point of contact but should not be having as many issues w/ general update from nursing regarding his mother and hopefully will not have any further issues. Instructed to call if needing to talk to provider if not already updating granddaughter but I have been updating Maria Antonia as primary contact as instructed at this time as brother also supposed to be flying out/traveling however I do not know if those plans have changed. In either case, please update family daily to prevent any issues and to assist in the care of Ms Lexa. Dispo: rehab/[facility] planned EVENTUALLY, now with [facility] and plan was for [facility] however per CM they do not have isolation room available and policy is to isolate 10 days from positive testing. CM following VTE PPx: Eliquis BID CODE STATUS: Full code Admission and Anticipated Discharge Date Admission Date: May 06, 2024 Subjective Patient seen and evaluated at bedside. She is oriented to self, but not year or place. She is aware that she is confused. Today she was worried about her car, thinking that she drove herself to the hospital last night. She denies any shortness of breath with activity or at rest, denies coughing today. Physical Exam Physical Exam: General: No acute distress, nondiaphoretic, well-developed, well-nourished. Skin: Erythematous rash noted under breasts R>L and in groin area. Cardiac: Irregularly irregular in the 60s. No murmurs, gallops or rubs appreciated. Pulm: Faint bilateral crackers, no wheezing/rales appreciated. No respiratory distress. 99% on room air. Abdominal: Soft, nontender, nondistended. Bowel sounds present. Neuro: A&O x3 (person, place, event; not time). No focal neurological deficits. Results & Data Results & Data Vital Signs (Past 12 Hours) Vital Signs Temp Pulse Pulse Resp BP Pulse Ox O2 Del Method 05/19/24 07:48 97.7 F 84 111/56 L 99 Room Air 05/19/24 07:21 89 15 99 Room Air 05/19/24 02:23 97.5 F L 78 18 126/82 96 Room Air 05/18/24 22:53 97.5 F L 77 18 122/76 97 Room Air 05/18/24 22:39 84 16 98 Room Air 05/18/24 21:58 70 FiO2 05/19/24 07:48 05/19/24 07:21 21 05/19/24 02:23 05/18/24 22:53 05/18/24 22:39 05/18/24 21:58 PG Care Time/CCT Total # of Minutes Spent Total Time Spent with Patient: Total time spent is greater than 50% in coordination of care (as documented) at patient's floor/unit and/or counseling patient: Coding Level of Care Code 34287 SUB INP/OBS CARE 3/50MIN Diagnoses COVID-19 U07.1 Atrial fibrillation I48.91 Confusion R41.0 Hypothyroidism E03.9 Diabetes mellitus E11.9 Hypertension I10 Left-sided visual neglect R41.4
[2024-05-19] MEDS ORDERED: LEVALBUTEROL HCL 0.63 MG/3 ML NEB NEB PRN (08:10)
--- NOTE | 2024-05-20 08:35 | Hospitalist Progress Note ---
Date of Service May 20, 2024 Assessment & Plan (1) COVID-19: Plan: [employer] testing POSITIVE for COVID on 05/15 - CXR without consolidation - No hypoxia, stable on room air - Lactate and procal WNL - Blood cultures, prelim negative x 48 hours - Continue supportive care with incentive spirometry, Mucinex BID, Flonase inhaler daily, Duoneb PRN, Xopenex Q8H (avoiding albuterol to prevent worsening tachycardia with a-fib/flutter) - Plan was discharge to [facility], however we are awaiting isolation quarantine for 10 days per their policy, then patient will be accepted for discharge there (2) Atrial fibrillation: Plan: Concerns for taking too much medication at home +/- prior dc'd sotalol - TSH elevated, Synthroid adjusted. - Initially held metoprolol but resumed for rate control - Remains on telemetry, Eliquis BID. Keep mag/K replete A-fib/flutter with tachybrady syndrome / CHF / Cardiomyopathy - Cardiology consulted: unclear etiology but unlikely to be ischemic. - Echo noted new reduction in EF to 35-40%, mod-severe mitral regurgitation - Started on Jardiance/Entresto 05/14 and continues on such. Lisinopril discontinued > Follow-up with CHF clinic at discharge - Continue Metoprolol tartrate 75mg BID, improvement in rates > Plan to switch to metoprolol succinate at discharge (3) Confusion: Plan: Multifactorial - Possible toxic encephalopathy due to drugs * Presented with increased confusion and hallucinations over the week leading to admission in the setting of CHRONIC cognitive impairment/dementia wandering outside looking for granddaughter. Also reports seeing who ~4 yrs ago. Hx MCA CVA. CT head/CTA head/neck and MRI brain NEGATIVE for acute process * Lyme negative, B12 not deficient. * Suspect combination of medications, undertreated hypothyroidism/afib, dementia w/ delirium and CHF with new reduction in EF Urine culture checked given incontinence/delirium to ensure not having UTI since starting Jardiance --> negative Frequent orientation, maintain day/night schedules (4) Hypothyroidism: Plan: TSH elevated and elevated in February and INCREASED Synthroid 75mcg daily. - Will need repeat TFT outpatient in 4 weeks. 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 Her number is [phone] and request updates daily. Also was provided # for son/uncle Ronny [phone] Did discussed prior about updating one family member daily/point of contact, and have been updating granddaughter daily as primary contact as instructed at this time Dispo: rehab/[facility] planned EVENTUALLY, now with [facility] and plan was for [facility] however per CM they do not have isolation room available and policy is to isolate 10 days from positive testing. CM following VTE PPx: Eliquis BID CODE STATUS: Full code Admission and Anticipated Discharge Date Admission Date: May 06, 2024 Subjective Patient seen and evaluated at bedside. She is in better spirits today. She notes that she feels less confused compared to yesterday. RN reports she slept well last night. Though she does remain confused, she is pleasantly confused today as opposed to being anxious/agitated as she has been previously. She nadine es any respiratory symptoms. No acute complaints or concerns at this time. Physical Exam Physical Exam: General: No acute distress, nondiaphoretic, well-developed, well-nourished. Skin: Erythematous rash noted under breasts R>L and in groin area. Cardiac: Irregularly irregular in the 60s. No murmurs, gallops or rubs appreciated. Pulm: Breath sounds diminished at bases bilaterally, otherwise clear to auscultation, no wheezing/rales appreciated. No respiratory distress. 99% on room air. Abdominal: Soft, nontender, nondistended. Bowel sounds present. Neuro: A&O x3 (person, place, event; not time). No focal neurological deficits. Results & Data Results & Data Vital Signs (Past 12 Hours) Vital Signs Temp Pulse Pulse Resp BP Pulse Ox O2 Del Method 05/20/24 07:32 65 05/20/24 02:41 97.7 F 84 16 107/70 99 Room Air 05/19/24 21:35 68 Laboratory Results Reviewed blood culture PG Care Time/CCT Total # of Minutes Spent Total Time Spent with Patient: Total time spent is greater than 50% in coordination of care (as documented) at patient's floor/unit and/or counseling patient: Coding Level of Care Code 16359 SUB INP/OBS CARE 2/35MIN Diagnoses COVID-19 U07.1 Atrial fibrillation I48.91 Confusion R41.0 Hypothyroidism E03.9 Diabetes mellitus E11.9 Hypertension I10 Left-sided visual neglect R41.4
--- NOTE | 2024-05-21 08:40 | Hospitalist Progress Note ---
Date of Service May 21, 2024 Assessment & Plan (1) COVID-19: Plan: [employer] testing POSITIVE for COVID on 05/15 - CXR without consolidation - No hypoxia, stable on room air - Lactate and procal WNL - Blood cultures, prelim negative x 48 hours - Continue supportive care with incentive spirometry, Mucinex BID, Flonase inhaler daily, Duoneb PRN, Xopenex Q8H (avoiding albuterol to prevent worsening tachycardia with a-fib/flutter) - Plan was discharge to [facility], however we are awaiting isolation quarantine for 10 days per their policy, then patient will be accepted for discharge there (2) Atrial fibrillation: Plan: Concerns for taking too much medication at home +/- prior dc'd sotalol - TSH elevated, Synthroid adjusted. - Initially held metoprolol but resumed for rate control - Remains on telemetry, Eliquis BID. Keep mag/K replete A-fib/flutter with tachybrady syndrome / CHF / Cardiomyopathy - Cardiology consulted: unclear etiology but unlikely to be ischemic. - Echo noted new reduction in EF to 35-40%, mod-severe mitral regurgitation - Started on Jardiance/Entresto 05/14 and continues on such. Lisinopril d iscontinued > Follow-up with CHF clinic at discharge - Continue Metoprolol tartrate 75mg BID, improvement in rates > Plan to switch to metoprolol succinate at discharge (3) Confusion: Plan: Multifactorial - Possible toxic encephalopathy due to drugs * Presented with increased confusion and hallucinations over the week leading to admission in the setting of CHRONIC cognitive impairment/dementia wandering outside looking for granddaughter. Also reports seeing who ~4 yrs ago. Hx MCA CVA. CT head/CTA head/neck and MRI brain NEGATIVE for acute process * Lyme negative, B12 not deficient. * Suspect combination of medications, undertreated hypothyroidism/afib, dementia w/ delirium and CHF with new reduction in EF Urine culture checked given incontinence/delirium to ensure not having UTI since starting Jardiance --> negative Frequent orientation, maintain day/night schedules (4) Hypothyroidism: Plan: TSH elevated and elevated in February and INCREASED Synthroid 75mcg daily. - Will need repeat TFT outpatient in 4 weeks. 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 Her number is [phone] and request updates daily. Also was provided # for son/uncle Ronny [phone] Did discussed prior about updating one family member daily/point of contact, and have been updating granddaughter daily as primary contact as instructed at this time Dispo: rehab/[facility] planned EVENTUALLY, now with [facility] and plan was for [facility] however per CM they do not have isolation room available and policy is to isolate 10 days from positive testing. CM following VTE PPx: Eliquis BID CODE STATUS: Full code Admission and Anticipated Discharge Date Admission Date: May 06, 2024 Subjective Patient seen and evaluated at bedside. She is more upset today compared to yesterday, still remains confused. Suspect this is due to her not sleeping well last night. She does remain easily redirectable. No acute complaints at this time. Physical Exam Physical Exam: General: No acute distress, nondiaphoretic, well-developed, well-nourished. Skin: Erythematous rash noted under breasts R>L and in groin area. Cardiac: Irregularly irregular in the 70s. No murmurs, gallops or rubs appreciated. Pulm: Breath sounds diminished at bases bilaterally, otherwise clear to auscultation, no wheezing/rales appreciated. No respiratory distress. 95% on room air. Abdominal: Soft, nontender, nondistended. Bowel sounds present. Neuro: A&O x2 (person, place; not time or event). No focal neurological deficits. Results & Data Results & Data Vital Signs (Past 12 Hours) Vital Signs Temp Pulse Pulse Resp BP BP Pulse Ox 05/21/24 08:14 97.5 F L 102 H 18 122/66 95 05/21/24 07:28 104 H 05/21/24 05:49 97.3 F L 91 H 18 126/80 98 05/20/24 21:44 75 05/20/24 20:48 97.7 F 75 18 123/78 98 O2 Del Method 05/21/24 08:14 Room Air 05/21/24 07:28 05/21/24 05:49 Room Air 05/20/24 21:44 05/20/24 20:48 Room Air PG Care Time/CCT Total # of Minutes Spent Total Time Spent with Patient: Total time spent is greater than 50% in coordination of care (as documented) at patient's floor/unit and/or counseling patient: Coding Level of Care Code 16203 SUB INP/OBS CARE 2/35MIN Diagnoses COVID-19 U07.1 Atrial fibrillation I48.91 Confusion R41.0 Hypothyroidism E03.9 Diabetes mellitus E11.9 Hypertension I10 Left-sided visual neglect R41.4
--- NOTE | 2024-05-22 13:04 | Hospitalist Progress Note ---
Date of Service May 22, 2024 Assessment & Plan (1) COVID-19: Plan: [employer] testing POSITIVE for COVID on 05/15 - CXR without consolidation - No hypoxia, stable on room air - Lactate and procal WNL - Blood cultures, prelim negative x 48 hours - Continue supportive care with incentive spirometry, Mucinex BID, Flonase inhaler daily, Duoneb PRN, Xopenex Q8H (avoiding albuterol to prevent worsening tachycardia with a-fib/flutter) - Plan was discharge to [facility], however we are awaiting isolation quarantine for 10 days per their policy, then patient will be accepted for discharge there (2) Atrial fibrillation: Plan: Concerns for taking too much medication at home +/- prior dc'd sotalol - TSH elevated, Synthroid adjusted. - Initially held metoprolol but resumed for rate control - Remains on telemetry, Eliquis BID. Keep mag/K replete A-fib/flutter with tachybrady syndrome / CHF / Cardiomyopathy - Cardiology consulted: unclear etiology but unlikely to be ischemic. - Echo noted new reduction in EF to 35-40%, mod-severe mitral regurgitation - Started on Jardiance/Entresto 05/14 and continues on such. Lisinopril d iscontinued > Follow-up with CHF clinic at discharge - Continue Metoprolol tartrate 75mg BID, improvement in rates > Plan to switch to metoprolol succinate at discharge (3) Confusion: Plan: Multifactorial - Possible toxic encephalopathy due to drugs * Presented with increased confusion and hallucinations over the week leading to admission in the setting of CHRONIC cognitive impairment/dementia wandering outside looking for granddaughter. Also reports seeing who ~4 yrs ago. Hx MCA CVA. CT head/CTA head/neck and MRI brain NEGATIVE for acute process * Lyme negative, B12 not deficient. * Suspect combination of medications, undertreated hypothyroidism/afib, dementia w/ delirium and CHF with new reduction in EF Urine culture checked given incontinence/delirium to ensure not having UTI since starting Jardiance --> negative Frequent orientation, maintain day/night schedules (4) Hypothyroidism: Plan: TSH elevated and elevated in February and INCREASED Synthroid 75mcg daily. - Will need repeat TFT outpatient in 4 weeks. 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 Her number is [phone] and request updates daily. Also was provided # for son/uncle Ronny [phone] Did discussed prior about updating one family member daily/point of contact, and have been updating granddaughter daily as primary contact as instructed at this time Dispo: rehab/[facility] planned EVENTUALLY, now with [facility] and plan was for [facility] however per CM they do not have isolation room available and policy is to isolate 10 days from positive testing. CM following VTE PPx: Eliquis BID CODE STATUS: Full code Admission and Anticipated Discharge Date Admission Date: May 06, 2024 Subjective Patient seen and evaluated bedside with RN present. Per RN, she was anxious, restless, and tearful overnight. She did not get much sleep until the early hours of this morning. She had been sleeping most of this morning/early afternoon. Encouraged proper sleep/wake cycles. She was alert and oriented x3 (person, place, time) and reports that she feels "so much better and less confused today." She is aware that she was confused and anxious yesterday. She had some elevated heart rates yesterday, suspect it was due to anxiety/being upset as her heart rate is controlled in the 60s-70s today. No additional complaints or concerns at this time. Physical Exam Physical Exam: General: No acute distress, nondiaphoretic, well-developed, well-nourished. Skin: Erythematous rash noted under breasts R>L and in groin area. Cardiac: Irregularly irregular in the 70s. No murmurs, gallops or rubs appreciated. Pulm: Breath sounds diminished at bases bilaterally, otherwise clear to auscultation, no wheezing/rales appreciated. No respiratory distress. 97% on room air. Abdominal: Soft, nontender, nondistended. Bowel sounds present. Neuro: A&O x3 (person, place, time; not event). No focal neurological deficits. Results & Data Results & Data Vital Signs (Past 12 Hours) Vital Signs Temp Pulse Resp BP BP Pulse Ox O2 Del Method 05/22/24 11:17 97.5 F L 71 18 122/78 97 Room Air 05/22/24 06:59 97.9 F 81 18 118/67 95 Room Air 05/22/24 06:10 97.5 F L 68 18 111/77 97 Room Air PG Care Time/CCT Total # of Minutes Spent Total Time Spent with Patient: Total time spent is greater than 50% in coordination of care (as documented) at patient's floor/unit and/or counseling patient: Coding Level of Care Code 77653 SUB INP/OBS CARE 2/35MIN Diagnoses COVID-19 U07.1 Atrial fibrillation I48.91 Confusion R41.0 Hypothyroidism E03.9 Diabetes mellitus E11.9 Hypertension I10 Left-sided visual neglect R41.4
--- NOTE | 2024-05-23 12:43 | CT Scan Report ---
CT head/brain wo con CLINICAL HISTORY: 69 years-old Female with Stroke rule out. Acute stroke like symptoms TECHNIQUE: Multiple axial CT images of the head were obtained without contrast. A dose lowering tech nique was utilized adhering to the principles of ALARA. CT DOSE: 547.75 mGy.cm COMPARISON: Brain MRI 05/04/2024 FINDINGS: No acute intracranial hemorrhage, midline shift, intracranial mass, hydrocephalus, territorial ischem ia or abnormal extra-axial collection. Involutional changes with chronic microvascular ischemic disea se. Chronic right temporoparietal infarct with encephalomalacia. The calvarium is intact. Prior bilateral lens repair. The paranasal sinuses, mastoid air cells, and m iddle ear cavities are clear. IMPRESSION: Chronic findings as above without acute intracranial abnormality. ACT 112: Negative or not required by law. The above report was generated using voice recognition software. It may contain grammatical, syntax o r spelling errors. Electronically signed by: Mario Dominguez M.D. 05/23/2024 12:41 PM
[2024-05-23 13:27] LABS: Hematocrit (blood only) 44.3 % (37.0-47.0); Hemoglobin 14.7 g/dl (12.0-16.0); Mean Corpuscular Hgb Conc 33.2 g/dL (32.0-36.0); Mean Corpuscular Volume 90.4 fL (80.0-100.0); Mean Platelet Volume 11.1 fL (9.4-12.4); Platelet Count 246 K/uL (130-400); RDW Coefficient of Variation 13.4 % (11.5-14.5); RDW Standard Deviation 44.8 fL (36.4-46.3); White Blood Count 6.82 K/ul (4.8-10.8)
[2024-05-23 13:29] LABS: Albumin Globulin Ratio 1.4 (0.9-2); Albumin Level 3.9 gm/dl (3.4-5.0); Bilirubin,Total 0.6 mg/dl (0.2-1.0); Creatinine Clr Calc Pharmacy 59.9 ml/min; Globulin 2.7 gm/dl (2.5-4.0); Potassium 4.6 mmol/L (3.5-5.1); Total Protein 6.6 gm/dl (6.0-8.3)
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
[2024-05-23 13:36] LABS: Troponin I High Sensitivity 10.4 pg/ml (0-14)
[2024-05-23] MEDS: SODIUM CHLORIDE 0.45 % 1,000 ML IV SCH (14:23)
[2024-05-24 06:20] LABS: BUN Creatinine Ratio 23.8 (10-20); Calcium 8.8 mg/dl (8.6-10.3); Creatinine Clr Calc Pharmacy 65.3 ml/min
--- NOTE | 2024-05-24 12:07 | Electrocardiogram Report ---
Test Reason : Blood Pressure : */* mmHG Vent. Rate : 68 BPM Atrial Rate : 87 BPM P-R Int : * ms QRS Dur : 78 ms QT Int : 418 ms P-R-T Axes : * -38 30 degrees QTcB Int : 444 ms Poor data quality, interpretation may be adversely affected Atrial fibrillation Left axis deviation Abnormal ECG When compared with ECG of 15-May-2024 19:18, Vent. rate has decreased by 58 bpm Confirmed by Germain Gallardo ([id number]) on 05/24/2024 12:07:40 PM Referred By: REFERRED SELF Confirmed By: Germain Gallardo
[2024-05-24] MEDS: INFLUENZA VACC TS2024-25(65y+)/PF (IIV3) 0.5mL Syr IM ONE (12:42)
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
--- NOTE | 2024-05-25 08:19 | Hospitalist Progress Note ---
Date of Service May 25, 2024 Assessment & Plan (1) Confusion: Plan: Multifactorial - Possible toxic encephalopathy due to drugs * Presented with increased confusion and hallucinations over the week leading to admission in the setting of CHRONIC cognitive impairment/dementia wandering outside looking for granddaughter. Also reports seeing who ~4 yrs ago. Hx MCA CVA. CT head/CTA head/neck and MRI brain NEGATIVE for acute process on admission * Lyme negative, B12 not deficient. * Suspect combination of medications, undertreated hypothyroidism/afib, dementia w/ delirium and CHF with new reduction in EF Urine culture checked given incontinence/delirium to ensure not having UTI since starting Jardiance --> negative Frequent orientation, maintain day/night schedules Acute metabolic delirium secondary to hypovolemia in the setting of dehydration on 05/23 - Sudden onset of hypotension, nausea, and slow to follow commands. Neuro exam was nonlateralizing and nonfocal > Obtained Head CT for completeness which was negative for acute process. History of chronic right temporoparietal infarct with encephalomalacia - EKG unremarkable in the setting of subjective chest pain. High-sensitivity troponin WNL at 10.4 - Suspect dehydration, received 2 L IV fluid with significant improvement in status (2) COVID-19: Plan: [employer] testing POSITIVE for COVID on 05/15 - CXR without consolidation, Lactate and procal WNL - No hypoxia, stable on room air, Blood cultures negative - Supportive care with incentive spirometry, Mucinex, Flonase inhaler, Duoneb, Xopenex -- no further respiratory symptoms - Off isolation precautions 05/25, no longer requiring 1:1 RN - Plan was for discharge to [facility], however now unable to offer patient a bed. Other referrals made, waiting to hear back (3) Atrial fibrillation: Plan: Concerns for taking too much medication at home +/- prior dc'd sotalol - TSH elevated, Synthroid adjusted. - Initially held metoprolol but resumed for rate control - Remains on telemetry, Eliquis BID. Keep mag/K replete A-fib/flutter with tachybrady syndrome / CHF / Cardiomyopathy - Cardiology consulted: unclear etiology but unlikely to be ischemic. - Echo noted new reduction in EF to 35-40%, mod-severe mitral regurgitation - Started on Jardiance/Entresto 05/14 and continues on such. Lisinopril discontinued > Follow-up with CHF clinic at discharge - Continue Metoprolol tartrate 75mg BID, improvement in rates > Plan to switch to metoprolol succinate at discharge - No further events on tele monitor -- discontinued heart monitor 05/25 (4) Hypothyroidism: Plan: TSH elevated and elevated in February and INCREASED Synthroid 75mcg daily on 05/10/24 - Will need repeat TFT outpatient in 4 weeks from increased dose. Adjust as needed (5) Diabetes mellitus: Plan: A1c 6.9 On metformin 500mg BID, B12 not deficient Started on Jardiance for cardiomyopathy as above and continues SSI -- BSGs acceptable and will monitor/adj as needed (6) Hypertension: Plan: Prior to admission, was on metoprolol 100mg BID, lisinopril 2.5mg Lisinopril discontinued --> now on entresto Metoprolol resumed/increased/continued at 75mg BID for rate control and plans to transition to succinate on discharge (7) Left-sided visual neglect: Plan: from [facility] CVA Plan Discontinued isolation precautions Discussed discharge planning with case management Updated daughter via phone call 05/25 and 05/23, voicemail left 05/24 Updated granddaughter, Maria Antonia, daily via phone while mother, Harsha, was traveling Dispo: plan was for [facility] once out of COVID isolation, which ended 05/25, however, they are not able to offer patient a bed now. Other referrals being made, CM following. VTE PPx: Eliquis BID CODE STATUS: Full code Admission and Anticipated Discharge Date Admission Date: May 06, 2024 Subjective Patient seen and evaluated in bedside chair. She was tearful upon me entering the room. She is again quite confused regarding why she is here. She is redirectable. I sat with her while she ate lunch and turned the TV on to [email or web address] per her request. She is off isolation precautions today. Awaiting placement. No additional complaints or concerns at this time. Physical Exam Physical Exam: General: No acute distress, nondiaphoretic, well-developed, well-nourished. Skin: Erythematous rash noted under breasts R>L and in groin area. Cardiac: Irregularly irregular in the 70s. No murmurs, gallops or rubs appreciated. Pulm: Breath sounds diminished at bases bilaterally, otherwise clear to auscultation, no wheezing/rales appreciated. No respiratory distress. 98% on room air. Abdominal: Soft, nontender, nondistended. Bowel sounds present. Neuro: A&O x2 (person, place; not time or event). No focal neurological deficits. Results & Data Results & Data Vital Signs (Past 12 Hours) Vital Signs Temp Pulse Pulse Resp BP Pulse Ox O2 Del Method 05/25/24 07:03 67 05/25/24 04:45 97.7 F 78 18 102/60 98 Room Air 05/24/24 22:54 97.5 F L 84 18 116/78 96 Room Air 05/24/24 22:02 116 H 05/24/24 21:13 Room Air PG Care Time/CCT Total # of Minutes Spent Total Time Spent with Patient: Total time spent is greater than 50% in coordination of care (as documented) at patient's floor/unit and/or counseling patient: Coding Level of Care Code 20410 SUB INP/OBS CARE 3/50MIN Diagnoses Confusion R41.0 COVID-19 U07.1 Atrial fibrillation I48.91 Hypothyroidism E03.9 Diabetes mellitus E11.9 Hypertension I10 Left-sided visual neglect R41.4
--- NOTE | 2024-05-26 12:36 | Hospitalist Progress Note ---
Date of Service May 26, 2024 Assessment & Plan (1) Confusion: Plan: Multifactorial - Possible toxic encephalopathy due to drugs * Presented with increased confusion and hallucinations over the week leading to admission in the setting of CHRONIC cognitive impairment/dementia wandering outside looking for granddaughter. Also reports seeing who ~4 yrs ago. Hx MCA CVA. CT head/CTA head/neck and MRI brain NEGATIVE for acute process on admission * Lyme negative, B12 not deficient. * Suspect combination of medications, undertreated hypothyroidism/afib, dementia w/ delirium and CHF with new reduction in EF Urine culture checked given incontinence/delirium to ensure not having UTI since starting Jardiance --> negative Frequent orientation, maintain day/night schedules Acute metabolic delirium secondary to hypovolemia in the setting of dehydration on 05/23 - Sudden onset of hypotension, nausea, and slow to follow commands. Neuro exam was nonlateralizing and nonfocal > Obtained Head CT for completeness which was negative for acute process. History of chronic right temporoparietal infarct with encephalomalacia - EKG unremarkable in the setting of subjective chest pain. High-sensitivity troponin WNL at 10.4 - Suspect dehydration, received 2 L IV fluid with significant improvement in status Family cannot take patient home safely - CM Following (2) COVID-19: Plan: [employer] testing POSITIVE for COVID on 05/15 - CXR without consolidation, Lactate and procal WNL - No hypoxia, stable on room air, Blood cultures negative - Supportive care with incentive spirometry, Mucinex, Flonase inhaler, Duoneb, Xopenex -- no further respiratory symptoms - Off isolation precautions 05/25, no longer requiring 1:1 RN (3) Atrial fibrillation: Plan: Concerns for taking too much medication at home +/- prior dc'd sotalol - TSH elevated, Synthroid adjusted. - Initially held metoprolol but resumed for rate control - Remains on telemetry, Eliquis BID. Keep mag/K replete A-fib/flutter with tachybrady syndrome / CHF / Cardiomyopathy - Cardiology consulted: unclear etiology but unlikely to be ischemic. - Echo noted new reduction in EF to 35-40%, mod-severe mitral regurgitation - Started on Jardiance/Entresto 05/14 and continues on such. Lisinopril discontinued > Follow-up with CHF clinic at discharge - Continue Metoprolol tartrate 75mg BID, improvement in rates > Plan to switch to metoprolol succinate at discharge - No further events on tele monitor -- discontinued heart monitor 05/25 (4) Hypothyroidism: Plan: TSH elevated and elevated in February and INCREASED Synthroid 75mcg daily on 05/10/24 - Will need repeat TFT outpatient in 4 weeks from increased dose. Adjust as needed (5) Diabetes mellitus: Plan: A1c 6.9 On metformin 500mg BID, B12 not deficient Started on Jardiance for cardiomyopathy as above and continues SSI -- BSGs acceptable and will monitor/adj as needed (6) Hypertension: Plan: Prior to admission, was on metoprolol 100mg BID, lisinopril 2.5mg Lisinopril discontinued --> now on entresto Metoprolol resumed/increased/continued at 75mg BID for rate control and plans to transition to succinate on discharge (7) Left-sided visual neglect: Plan: from [facility] CVA Plan Updated daughter via phone call 05/25 and 05/23, 05/26 Updated granddaughter, Maria Antonia, daily via phone while mother, Harsha, was traveling Dispo: continued inpatient stay, awaiting placement VTE PPx: Eliquis BID CODE STATUS: Full code Admission and Anticipated Discharge Date Admission Date: May 06, 2024 Subjective Patient seen sitting up in bed, upset after talking to her daughter this morning. Feels like she is a burden and that she is just being dumped after caring for her family and people her whole life. She is a retired [employer] I spent 20 minutes with the patient talking about her past and future oriented activities. I provided her with word searches and turned on the TV to wheeler Cubie and she was very redirectable and pleasant by the time that I left. Review of Systems Review of Systems: All systems reviewed & are unremarkable except as noted in Subjective Physical Exam Physical Exam: General: NAD, VS as above, sitting up in bed bed, tearful at the beginning of the encounter Resp: normal respiratory effort, lungs clear to auscultation CV: afib, no murmur, Abd: non tender, soft Extremities: Moves all extremities, no edema Neuro: A&O x2 Results & Data Results & Data Vital Signs (Past 12 Hours) Vital Signs Temp Pulse Resp BP BP Pulse Ox O2 Del Method 05/26/24 07:58 97.5 F L 82 12 123/78 97 Room Air 05/26/24 03:36 97.9 F 78 18 99/65 L 98 Room Air Laboratory Results POC BSG reviewed PG Care Time/CCT Total # of Minutes Spent Total Time Spent with Patient: Total time spent is greater than 50% in coordination of care (as documented) at patient's floor/unit and/or counseling patient: Coding Level of Care Code 28324 SUB INP/OBS CARE 2/35MIN Diagnoses Confusion R41.0 COVID-19 U07.1 Atrial fibrillation I48.91 Hypothyroidism E03.9 Diabetes mellitus E11.9 Hypertension I10 Left-sided visual neglect R41.4
--- NOTE | 2024-05-27 10:08 | Hospitalist Progress Note ---
Date of Service May 27, 2024 Assessment & Plan (1) Confusion: Plan: Multifactorial - Possible toxic encephalopathy due to drugs * Presented with increased confusion and hallucinations over the week leading to admission in the setting of CHRONIC cognitive impairment/dementia wandering outside looking for granddaughter. Also reports seeing who ~4 yrs ago. Hx MCA CVA. CT head/CTA head/neck and MRI brain NEGATIVE for acute process on admission * Lyme negative, B12 not deficient. * Suspect combination of medications, undertreated hypothyroidism/afib, dementia w/ delirium and CHF with new reduction in EF Urine culture checked given incontinence/delirium to ensure not having UTI since starting Jardiance --> negative Frequent orientation, maintain day/night schedules Acute metabolic delirium secondary to hypovolemia in the setting of dehydration on 05/23 --> improved with IV fluids > Obtained Head CT for completeness which was negative for acute process. History of chronic right temporoparietal infarct with encephalomalacia Family cannot take patient home safely - CM Following (2) COVID-19: Plan: [employer] testing POSITIVE for COVID on 05/15 - CXR without consolidation, Lactate and procal WNL - No hypoxia, stable on room air, Blood cultures negative - Supportive care with incentive spirometry, Mucinex, Flonase inhaler, Duoneb, Xopenex -- no further respiratory symptoms - Off isolation precautions 05/25, no longer requiring 1:1 RN (3) Atrial fibrillation: Plan: Concerns for taking too much medication at home +/- prior dc'd sotalol - TSH elevated, Synthroid adjusted. - metoprolol for rate control - continue Eliquis BID A-fib/flutter with tachybrady syndrome / CHF / Cardiomyopathy - Cardiology consulted: unclear etiology but unlikely to be ischemic. - Echo noted new reduction in EF to 35-40%, mod-severe mitral regurgitation - Started on Jardiance/Entresto 05/14 and continues on such. Lisinopril discontinued > Follow-up with CHF clinic at discharge - Continue Metoprolol tartrate 75mg BID, improvement in rates - No further events on tele monitor -- discontinued heart monitor 05/25 (4) Hypothyroidism: Plan: TSH elevated and elevated in February and INCREASED Synthroid 75mcg daily on 05/10/24 - Will need repeat TFT outpatient in 4 weeks from increased dose. Adjust as needed (5) Diabetes mellitus: Plan: A1c 6.9. Home medication: metformin 500mg BID (held) Started on Jardiance for cardiomyopathy as above Patient has gotten very minimal insulin with SSI - plan to d/c and continue to monitor sugars to see if metformin needs to be restarted (6) Hypertension: Plan: Prior to admission, was on metoprolol 100mg BID, lisinopril 2.5mg Lisinopril discontinued --> now on entresto Metoprolol resumed/increased/continued at 75mg BID for rate control (7) Left-sided visual neglect: Plan: from [facility] CVA Plan Updated daughter via phone call 05/25 and 05/23, 05/26, 05/27 Updated granddaughter, Maria Antonia, daily via phone while mother, Harsha, was traveling Dispo: continued inpatient stay, awaiting placement VTE PPx: Eliquis BID CODE STATUS: Full code Admission and Anticipated Discharge Date Admission Date: May 06, 2024 Subjective Patient seen lying in bed - struggling with turning up the volume on the TV. She is in a much better mood today, complains of pain on her bottom but this was relieved with turning on her side and placing a pillow under her hips. no acute events overnight Review of Systems Review of Systems: All systems reviewed & are unremarkable except as noted in Subjective Physical Exam Physical Exam: General: NAD, VS as above, lying in bed, pleasant Resp: normal respiratory effort, lungs clear to auscultation CV: afib, no murmur, Abd: non tender, soft Back: pressure dressing in place, Extremities: Moves all extremities, no edema Neuro: A&O x2 Results & Data Results & Data Vital Signs (Past 12 Hours) Vital Signs Temp Pulse Resp BP BP Pulse Ox O2 Del Method 05/27/24 07:57 98.1 F 59 L 17 113/50 L 97 Room Air 05/27/24 03:24 97.5 F L 81 18 126/79 96 Room Air 05/26/24 23:54 97.9 F 77 16 109/66 96 Room Air Laboratory Results POC glucose reviewed PG Care Time/CCT Total # of Minutes Spent Total Time Spent with Patient: Total time spent is greater than 50% in coordination of care (as documented) at patient's floor/unit and/or counseling patient: Coding Level of Care Code 14870 SUB INP/OBS CARE 2/35MIN Diagnoses Confusion R41.0 COVID-19 U07.1 Atrial fibrillation I48.91 Hypothyroidism E03.9 Diabetes mellitus E11.9 Hypertension I10 Left-sided visual neglect R41.4
[2024-05-27 22:06] LABS: Basophils # (auto) 0.03 K/uL (0.00-0.20); Basophils % (auto) 0.5 %; Eosinophils # (auto) 0.17 K/uL (0.00-0.50); Eosinophils % (auto) 2.7 %; Hematocrit (blood only) 43.2 % (37.0-47.0); Hemoglobin 14.3 g/dl (12.0-16.0); Immature Granulocytes # (auto) 0.04 K/uL (0.01-0.20); Immature Granulocytes % (auto) 0.6 %; Lymphocytes # (auto) 2.38 K/uL (1.20-3.40); Mean Corpuscular Hemoglobin 29.5 pg (25.0-34.0); Mean Corpuscular Hgb Conc 33.1 g/dL (32.0-36.0); Mean Corpuscular Volume 89.3 fL (80.0-100.0); Mean Platelet Volume 10.5 fL (9.4-12.4); Monocytes # (auto) 0.44 K/uL (0.11-0.59); Neutrophils # (auto) 3.21 K/uL (1.40-6.50); Neutrophils % (auto) 51.2 %; Platelet Count 261 K/uL (130-400); RDW Coefficient of Variation 13.2 % (11.5-14.5); Red Blood Count 4.84 M/uL (4.20-5.40); White Blood Count 6.27 K/ul (4.8-10.8)
[2024-05-27 22:21] LABS: Albumin Globulin Ratio 1.3 (0.9-2); Albumin Level 3.9 gm/dl (3.4-5.0); BUN Creatinine Ratio 21.6 (10-20); Bilirubin,Total 0.5 mg/dl (0.2-1.0); Calcium 9.4 mg/dl (8.6-10.3); Creatinine Clr Calc Pharmacy 49.1 ml/min; Globulin 2.9 gm/dl (2.5-4.0); Potassium 4.2 mmol/L (3.5-5.1); Total Protein 6.8 gm/dl (6.0-8.3)
[2024-05-27 22:45] LABS: INR 1.1 (0.9-1.1); Prothrombin Time 11.9 Seconds (9.0-12.0)
[2024-05-28] MEDS: FLUTICASONE PROPIONATE NA SPR 16 GM BTL PRN (09:05)
--- NOTE | 2024-05-28 10:35 | Electrocardiogram Report ---
Test Reason : Blood Pressure : */* mmHG Vent. Rate : 104 BPM Atrial Rate : 366 BPM P-R Int : * ms QRS Dur : 78 ms QT Int : 358 ms P-R-T Axes : * -29 60 degrees QTcB Int : 470 ms Poor data quality, interpretation may be adversely affected Atrial flutter with variable A-V block Abnormal ECG When compared with ECG of 23-May-2024 12:21, Vent. rate has increased by 36 bpm Confirmed by Germain Gallardo ([id number]) on 05/28/2024 10:34:58 AM Referred By: REFERRED SELF Confirmed By: Germain Gallardo
--- NOTE | 2024-05-28 10:46 | Hospitalist Progress Note ---
Date of Service May 28, 2024 Assessment & Plan (1) Confusion: Plan: Multifactorial - Possible toxic encephalopathy due to drugs * Presented with increased confusion and hallucinations over the week leading to admission in the setting of CHRONIC cognitive impairment/dementia wandering outside looking for granddaughter. Also reports seeing who ~4 yrs ago. Hx MCA CVA. CT head/CTA head/neck and MRI brain NEGATIVE for acute process on admission * Lyme negative, B12 not deficient. * Suspect combination of medications, undertreated hypothyroidism/afib, dementia w/ delirium and CHF with new reduction in EF Urine culture checked given incontinence/delirium to ensure not having UTI since starting Jardiance --> negative Frequent orientation, maintain day/night schedules Acute metabolic delirium secondary to hypovolemia in the setting of dehydration on 05/23 --> improved with IV fluids > Obtained Head CT for completeness which was negative for acute process. History of chronic right temporoparietal infarct with encephalomalacia Family cannot take patient home safely - CM Following (2) COVID-19: Plan: [employer] testing POSITIVE for COVID on 05/15 - CXR without consolidation, Lactate and procal WNL - No hypoxia, stable on room air, Blood cultures negative - Supportive care with incentive spirometry, Mucinex, Flonase inhaler, Duoneb, Xopenex -- no further respiratory symptoms - Off isolation precautions 05/25, no longer requiring 1:1 RN (3) Atrial fibrillation: Plan: Concerns for taking too much medication at home +/- prior dc'd sotalol - TSH elevated, Synthroid adjusted. - metoprolol for rate control - continue Eliquis BID A-fib/flutter with tachybrady syndrome / CHF / Cardiomyopathy - Cardiology consulted: unclear etiology but unlikely to be ischemic. - Echo noted new reduction in EF to 35-40%, mod-severe mitral regurgitation - Started on Jardiance/Entresto 05/14 and continues on such. Lisinopril discontinued > Follow-up with CHF clinic at discharge - Continue Metoprolol tartrate 75mg BID, improvement in rates - No further events on tele monitor -- discontinued heart monitor 05/25 (4) Hypothyroidism: Plan: TSH elevated and elevated in February and INCREASED Synthroid 75mcg daily on 05/10/24 - Will need repeat TFT outpatient in 4 weeks from increased dose. Adjust as needed (5) Diabetes mellitus: Plan: A1c 6.9. Home medication: metformin 500mg BID (held) Started on Jardiance for cardiomyopathy as above Patient has gotten very minimal insulin with SSI - insulin d/c 05/27, monitor BSG to see if Metformin should be restarted (6) Hypertension: Plan: Prior to admission, was on metoprolol 100mg BID, lisinopril 2.5mg Lisinopril discontinued --> now on entresto Metoprolol continued at 75mg BID for rate control (7) Left-sided visual neglect: Plan: from [facility] CVA Plan Updated daughter via phone call 05/25 and 05/23, 05/26, 05/27, 05/28 Updated granddaughter, Maria Antonia, daily via phone while mother, Harsha, was traveling Dispo: continued inpatient stay, awaiting placement VTE PPx: Eliquis BID CODE STATUS: Full code Admission and Anticipated Discharge Date Admission Date: May 06, 2024 Subjective Patient seen sitting up in the chair - knows that she is in the hospital but unsure how she is affording all the meals and cleaning, etc. I reassured her and she was redirected. No acute complaints. Maria news placed on per pt request. Review of Systems Review of Systems: All systems reviewed & are unremarkable except as noted in Subjective Physical Exam Physical Exam: General: NAD, VS as above, lying in bed, pleasant Resp: normal respiratory effort, lungs clear to auscultation CV: afib, no murmur, Abd: non tender, soft Extremities: Moves all extremities, no edema Neuro: A&O x2 Results & Data Results & Data Vital Signs (Past 12 Hours) Vital Signs Temp Pulse Resp BP Pulse Ox O2 Del Method 05/28/24 07:48 97.3 F L 71 16 101/63 95 Room Air PG Care Time/CCT Total # of Minutes Spent Total Time Spent with Patient: Total time spent is greater than 50% in coordination of care (as documented) at patient's floor/unit and/or counseling patient: Coding Level of Care Code 66584 SUB INP/OBS CARE /25MIN Diagnoses Confusion R41.0 COVID-19 U07.1 Atrial fibrillation I48.91 Hypothyroidism E03.9 Diabetes mellitus E11.9 Hypertension I10 Left-sided visual neglect R41.4
[2024-05-29] MEDS: CHOLECALCIFEROL 25 MCG (1000 UNITS) TAB PO SCH (08:05)
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
--- NOTE | 2024-05-29 15:33 | Psychiatric Consultation ---
Date of Consultation May 29, 2024 Impression / Recommendations Impression 69 y/o female presenting with covid postive, a-fib, multifactorial delirium 2/2 excess prescription drug ingestion, mixed dementia (vascular, Alzheimer's). Psychiatry consulted for agitation medication recommendations as patient refusing daily medications, agitated during the day. Appears Quetiapine 25mg QAM held due to excess AM sedation. Based on presentation and collateral from daughter appears to have delirium on pre-existing mixed dementia (Alzheimer's and vascular (CVA 2009)) that has progressed significantly. At baseline has occasional episodes of psychosis related to seeing her loved ones. Recommend to optimize nightly quetiapine, avoid benzodiazepines, start daily quetiapine with afternoon PRN for agitation, continue mirtazapine. Would benefit from usp placement. Overall, I spent a total of 60 minutes with this case including review of chart records, nursing report, review of lab work, direct evaluation of the patient at bedside, counseling the patient, discussion of the patient with the hospitalist provider, discussion with the psychiatric liaison during clinical rounds, gathering collateral and documentation in the electronic health record. (1) Delirium due to multiple etiologies: (2) Major neurocognitive disorder due to multiple etiologies with behavioral disturbance: (3) COVID-19: (4) Hallucinations: (5) Hypothyroidism: Plan Will recommend seroquel 12.5mg QAM, 12.5mg daily PRN, 25mg HS. Can continue Lorazepam 0.25mg however would d/c if nightly confusion occurs. Continue Mirtazapine 7.5mg to 15mg HS. Plan for usp is appropriate. Psych History Identifying Data 69 y/o female presenting with covid postive, a-fib, multifactorial delirium 2/2 excess prescription drug ingestion, mixed dementia (vascular, Alzheimer's). Psychiatry consulted for agitation medication recommendations as patient refusing daily medications, agitated during the day. Chief Complaint Agitation, medication refusal History of Present Illness Pt is AO to self only. "[facility]" "2022" "January" Able to identify daughter. Pt is pleasant during interaction. Limited spontanteous speech. Denies pain and reports fair. Reactive affect. Unsure of placement. No concerns reported. Collateral from daughter: plan for prison placement. 1-2x monthly would make statements about seeing or interacting with family members - at baseline. Admitted for unintentional drug overdose of levothyroxine. Stroke 2009. 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 Nurse liaison note: "This staff initiated phone call with pt.'s daughter Harsha for history. Daughter noticed slow changes in mentation for some time (about twice monthly she thought she was having lunch with her mother). Over the last few months the daughter has noticed more frequent changes in mentation. She states she started with memory loss after a stroke in 2009. Daughter states she becomes confused and agitated at night sometimes but has noticed it more during the day. Masha calls her multiple times during the day asking her to come and get her. 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 Harsha states that Masha will probably be discharged Friday to [facility] after the family meets with the staff on Friday to finalize plans. " Allergies Allergy/AdvReac Type Severity Reaction Status Date / Time adhesive Allergy Intermediate LOCAL Verified 04/14/24 11:07 BLISTERS AND SKIN TEARING Home Medications Medication Instructions Recorded Confirmed Type cholecalciferol (vitamin D3) 25 1,000 unit PO DAILY 03/01/19 05/04/24 History mcg (1,000 unit) tablet fish oil-dha-epa 1,200 mg-144 1 cap PO AMHS 03/01/19 05/04/24 History mg-216 mg capsule magnesium oxide 400 mg PO BID 03/01/19 05/04/24 History blood-glucose meter (Blood Glucose #1 ea 11/30/19 05/04/24 Rx Monitoring kit) aspirin 81 mg tablet,delayed 81 mg PO .DAILY @ NOON 12/17/20 05/04/24 History release lancets (OneTouch UltraSoft #100 ea 04/09/22 05/04/24 Rx Lancets) blood sugar diagnostic (Blood #100 ea 06/06/22 05/04/24 Rx Glucose Test strips) pen needle, diabetic 31 gauge x #100 ea 07/31/22 05/04/24 Rx 5/16" (Unifine Pentips Plus) apixaban 5 mg tablet (Eliquis) 5 mg PO BID #180 tabs 01/09/24 05/04/24 Rx metformin 500 mg tablet 500 mg PO BID #60 tabs 02/03/24 05/04/24 Rx mirtazapine 15 mg tablet 15 mg PO HS 02/21/24 05/04/24 History simvastatin 40 mg tablet 40 mg PO HS #90 tabs 03/02/24 05/04/24 Rx buspirone 7.5 mg tablet 7.5 mg PO AMHS 05/04/24 05/04/24 History rgmwngbqfgf-xqafxexth-fih C-Mn 1 cap PO BID 05/04/24 05/04/24 History capsule (Glucosamine-Chondroitin Complex capsule) levothyroxine 50 mcg tablet 50 mcg PO DAILYBB 05/04/24 05/04/24 History lisinopril 2.5 mg tablet 2.5 mg PO QAM 05/04/24 05/04/24 History magnesium chloride 64 mg 64 mg PO BID 05/04/24 05/04/24 History tablet,extended release metoprolol tartrate 100 mg tablet 100 mg PO AMHS 05/04/24 05/04/24 History hpsswuzv-epji-hlns 8 mg-folic 400 1 tab PO .DAILY AT NOON 05/04/24 05/04/24 History mcg-K 50 mcg-lutein 300 mcg tablet (Centrum Silver Women) pantoprazole 40 mg tablet,delayed 40 mg PO QAM 05/04/24 05/04/24 History release sertraline 100 mg tablet 100 mg PO QPM 05/04/24 05/04/24 History Patient History Medical History Low hemoglobin Transaminitis Accidental overdose Depression Headache Stone, kidney Hallucination, visual Altered mental status Accidental drug ingestion Acute confusion Paronychia due to ingrown nail Ingrowing nail, right great toe CVA (cerebral vascular accident) CHF (congestive heart failure) Hypomagnesemia Shortness of breath CVA (cerebral vascular accident) Surgical History S/P wrist surgery Family History Mother Myocardial infarction Other FHx: heart disease FHx: hypertension Family history of diabetes mellitus Family history of kidney stones Denies family history of Ovarian cancer Prostate cancer Breast cancer Colorectal cancer Social History Smoking Status: Never smoker Second Hand Exposure: No; Do You Dip or Chew Tobacco: No; Hx Alcohol Use: No Hx Substance Use: No Preferred Language: Greenlandic Communication Ability: Impaired Visual Impairment: No Limitations Hearing Ability: Normal [employer] Required: No Beliefs That Will Affect Care: None marital status: Current Living Situation: Alone current occupational status: retired Feels Safe at Home: Yes Childhood Exposure to Second-Hand Smoke: No Dental Care, Regularly: No Physical Activity Frequency: Does not Exercise Seatbelt Use: always Sunscreen Use: No Assistive Devices: Cane Physical Exam Mental Examination: Appearance: Well Groomed Eye Contact: Maintains Eye Contact Motor Behavior: Unremarkable Speech: Soft and Delayed Mood: Euthymic and Calm Affect: Congruent Thought Process: Linear Thought Content: Disoriented Hallucinations: None Insight: Poor Judgement: Poor Vital Signs (Past 24 Hours): Last Vital Signs Temp 36.3 C L 05/29/24 11:25 Pulse 63 05/29/24 11:25 Resp 20 05/29/24 11:25 BP 135/77 05/29/24 11:25 Pulse Ox 90 05/29/24 11:25 O2 Del Method Nasal Cannula 05/29/24 11:25 O2 Flow Rate 2 05/29/24 11:25 FiO2 21 05/19/24 07:21 Results & Data (PSY) Diagnostic Findings EKG within expected limits. Medications Administered Acetaminophen (Acetaminophen 500 Mg Tab) 1,000 mg PO Q8H PRN PRN Reason: Pain or Fever Stop: 06/04/24 00:13 Last Admin: 05/28/24 19:59 Dose: 1,000 mg Documented By: Admin: 05/27/24 21:47 Dose: 1,000 mg Documented By: supervisor title: 05/25/24 20:47 Dose: 1,000 mg Documented By: Admin: 05/19/24 18:14 Dose: 1,000 mg Documented By: Admin: 05/16/24 03:09 Dose: 1,000 mg Documented By: Admin: 05/13/24 19:43 Dose: 1,000 mg Documented By: Admin: 05/12/24 19:34 Dose: 1,000 mg Documented By: Admin: 05/08/24 19:43 Dose: 1,000 mg Documented By: Admin: 05/07/24 19:31 Dose: 1,000 mg Documented By: Admin: 05/05/24 01:04 Dose: 1,000 mg Documented By: JOSEPH Apixaban (Apixaban 5 Mg Tablet) 5 mg PO BID ADI Stop: 06/04/24 08:59 Last Admin: 05/29/24 08:05 Dose: 5 mg Documented By: MTAnn Admin: 05/28/24 20:00 Dose: 5 mg Documented By: Admin: 05/28/24 09:06 Dose: 5 mg Documented By: Admin: 05/27/24 21:47 Dose: 5 mg Documented By: supervisor title: 05/27/24 08:29 Dose: 5 mg Documented By: Admin: 05/26/24 20:08 Dose: 5 mg Documented By: supervisor title: 05/26/24 09:07 Dose: 5 mg Documented By: Admin: 05/25/24 20:49 Dose: 5 mg Documented By: Admin: 05/25/24 08:52 Dose: 5 mg Documented By: J Admin: 05/24/24 20:15 Dose: 5 mg Documented By: Admin: 05/24/24 09:06 Dose: 5 mg Documented By: Admin: 05/23/24 20:23 Dose: 5 mg Documented By: AEAnn Admin: 05/23/24 08:36 Dose: 5 mg Documented By: MTAnn Admin: 05/22/24 20:35 Dose: 5 mg Documented By: K Admin: 05/22/24 11:11 Dose: 5 mg Documented By: MTAnn Admin: 05/21/24 20:07 Dose: 5 mg Documented By: Admin: 05/21/24 08:37 Dose: 5 mg Documented By: Admin: 05/20/24 20:47 Dose: 5 mg Documented By: Admin: 05/20/24 09:10 Dose: 5 mg Documented By: Admin: 05/19/24 20:30 Dose: 5 mg Documented By: supervisor title: 05/19/24 07:50 Dose: 5 mg Documented By: Admin: 05/18/24 20:23 Dose: 5 mg Documented By: supervisor title: 05/18/24 07:44 Dose: 5 mg Documented By: Admin: 05/17/24 20:29 Dose: 5 mg Documented By: Admin: 05/17/24 08:18 Dose: 5 mg Documented By: Admin: 05/16/24 19:56 Dose: 5 mg Documented By: Admin: 05/16/24 09:14 Dose: 5 mg Documented By: Admin: 05/15/24 19:34 Dose: 5 mg Documented By: [id number] Admin: 05/15/24 07:22 Dose: 5 mg Documented By: Admin: 05/14/24 19:58 Dose: 5 mg Documented By: Admin: 05/14/24 08:37 Dose: 5 mg Documented By: Admin: 05/13/24 19:39 Dose: 5 mg Documented By: Admin: 05/13/24 09:22 Dose: 5 mg Documented By: Admin: 05/12/24 19:27 Dose: 5 mg Documented By: Admin: 05/12/24 08:07 Dose: 5 mg Documented By: Admin: 05/11/24 21:23 Dose: 5 mg Documented By: Admin: 05/11/24 08:39 Dose: 5 mg Documented By: Admin: 05/10/24 20:03 Dose: 5 mg Documented By: PRODUCTION SORTER Admin: 05/10/24 08:15 Dose: 5 mg Documented By: Admin: 05/09/24 19:18 Dose: 5 mg Documented By: Admin: 05/09/24 08:20 Dose: 5 mg Documented By: Admin: 05/08/24 19:47 Dose: 5 mg Documented By: Admin: 05/08/24 09:28 Dose: 5 mg Documented By: Admin: 05/07/24 19:34 Dose: 5 mg Documented By: Admin: 05/07/24 09:49 Dose: 5 mg Documented By: Admin: 05/06/24 19:20 Dose: 5 mg Documented By: Admin: 05/06/24 07:50 Dose: 5 mg Documented By: Admin: 05/05/24 21:10 Dose: 5 mg Documented By: Admin: 05/05/24 09:36 Dose: 5 mg Documented By: JONI Aspirin (Aspirin 81 Mg Ectab) 81 mg PO DAILY@1200 ADI Stop: 06/04/24 11:59 Last Admin: 05/29/24 12:31 Dose: 81 mg Documented By: Admin: 05/28/24 12:35 Dose: 81 mg Documented By: Admin: 05/27/24 12:36 Dose: 81 mg Documented By: Admin: 05/26/24 12:37 Dose: 81 mg Documented By: Admin: 05/25/24 12:29 Dose: 81 mg Documented By: Admin: 05/24/24 12:45 Dose: 81 mg Documented By: Admin: 05/23/24 13:15 Dose: 81 mg Documented By: Admin: 05/22/24 11:11 Dose: 81 mg Documented By: Admin: 05/21/24 12:34 Dose: 81 mg Documented By: Admin: 05/20/24 12:13 Dose: 81 mg Documented By: Admin: 05/19/24 11:59 Dose: 81 mg Documented By: Admin: 05/18/24 12:51 Dose: 81 mg Documented By: Admin: 05/17/24 12:37 Dose: 81 mg Documented By: Admin: 05/16/24 12:11 Dose: 81 mg Documented By: Admin: 05/15/24 07:21 Dose: 81 mg Documented By: Admin: 05/14/24 08:39 Dose: 81 mg Documented By: Admin: 05/13/24 12:45 Dose: 81 mg Documented By: Admin: 05/12/24 12:49 Dose: 81 mg Documented By: Admin: 05/11/24 08:39 Dose: 81 mg Documented By: Admin: 05/10/24 13:04 Dose: 81 mg Documented By: Admin: 05/09/24 13:24 Dose: 81 mg Documented By: Admin: 05/08/24 13:43 Dose: 81 mg Documented By: Admin: 05/07/24 11:55 Dose: 81 mg Documented By: SLAaron Admin: 05/06/24 13:11 Dose: 81 mg Documented By: BCGeena Admin: 05/05/24 12:09 Dose: 81 mg Documented By: LETICIAG Docusate Sodium (Docusate Sodium 100 Mg Cap) 100 mg PO BID ADI Stop: 06/10/24 12:14 Last Admin: 05/29/24 08:17 Dose: 100 mg Documented By: Admin: 05/28/24 19:58 Dose: 100 mg Documented By: Admin: 05/28/24 09:11 Dose: 100 mg Documented By: Admin: 05/27/24 21:47 Dose: 100 mg Documented By: supervisor title: 05/27/24 08:30 Dose: Not Given Documented By: Admin: 05/26/24 20:05 Dose: 100 mg Documented By: supervisor title: 05/26/24 09:48 Dose: 100 mg Documented By: Admin: 05/25/24 20:47 Dose: 100 mg Documented By: Admin: 05/25/24 08:59 Dose: 100 mg Documented By: Admin: 05/24/24 20:11 Dose: 100 mg Documented By: Admin: 05/24/24 10:14 Dose: 100 mg Documented By: Admin: 05/23/24 20:23 Dose: 100 mg Documented By: Admin: 05/23/24 08:57 Dose: 100 mg Documented By: Admin: 05/22/24 20:36 Dose: 100 mg Documented By: Admin: 05/22/24 11:10 Dose: 100 mg Documented By: Admin: 05/21/24 20:08 Dose: 100 mg Documented By: Admin: 05/21/24 09:02 Dose: 100 mg Documented By: Admin: 05/20/24 20:45 Dose: 100 mg Documented By: Admin: 05/20/24 09:14 Dose: 100 mg Documented By: Admin: 05/19/24 20:23 Dose: 100 mg Documented By: supervisor title: 05/19/24 07:49 Dose: 100 mg Documented By: Admin: 05/18/24 20:18 Dose: 100 mg Documented By: supervisor title: 05/18/24 08:57 Dose: 100 mg Documented By: Admin: 05/17/24 20:30 Dose: 100 mg Documented By: Admin: 05/17/24 08:23 Dose: 100 mg Documented By: Admin: 05/16/24 20:07 Dose: 100 mg Documented By: Admin: 05/16/24 09:16 Dose: 100 mg Documented By: Admin: 05/15/24 19:32 Dose: 100 mg Documented By: [id number] Admin: 05/15/24 07:25 Dose: 100 mg Documented By: Admin: 05/14/24 20:03 Dose: 100 mg Documented By: Admin: 05/14/24 08:42 Dose: 100 mg Documented By: Admin: 05/13/24 19:39 Dose: 100 mg Documented By: Admin: 05/13/24 09:25 Dose: 100 mg Documented By: Admin: 05/12/24 19:27 Dose: 100 mg Documented By: Admin: 05/12/24 08:06 Dose: 100 mg Documented By: Admin: 05/11/24 21:20 Dose: 100 mg Documented By: Admin: 05/11/24 13:05 Dose: 100 mg Documented By: JUAN DIEGO Empagliflozin (Empagliflozin 10 Mg Tab) 10 mg PO DAILY ADI Stop: 06/13/24 08:59 Last Admin: 05/29/24 08:05 Dose: 10 mg Documented By: MTAnn Admin: 05/28/24 09:06 Dose: 10 mg Documented By: Admin: 05/27/24 08:29 Dose: 10 mg Documented By: Admin: 05/26/24 09:48 Dose: 10 mg Documented By: Admin: 05/25/24 08:58 Dose: 10 mg Documented By: J Admin: 05/24/24 09:05 Dose: 10 mg Documented By: Admin: 05/23/24 08:37 Dose: 10 mg Documented By: MTAnn Admin: 05/22/24 11:11 Dose: 10 mg Documented By: Admin: 05/21/24 08:39 Dose: 10 mg Documented By: Admin: 05/20/24 09:09 Dose: 10 mg Documented By: Admin: 05/19/24 07:50 Dose: 10 mg Documented By: Admin: 05/18/24 07:45 Dose: 10 mg Documented By: Admin: 05/17/24 08:19 Dose: 10 mg Documented By: Admin: 05/16/24 09:15 Dose: 10 mg Documented By: Admin: 05/15/24 07:22 Dose: 10 mg Documented By: Admin: 05/14/24 08:38 Dose: 10 mg Documented By: MARSHAL Fluticasone Propionate (Fluticasone Propionate Na Spr 16 Gm Btl) 2 sprays NA DAILY PRN PRN Reason: Wheezing Stop: 06/16/24 08:59 Last Admin: 05/28/24 09:05 Dose: 2 sprays Documented By: ALMA Levothyroxine Sodium (Levothyroxine Sodium 75 Mcg Tablet) 75 mcg PO DAILY ADI Stop: 06/09/24 06:29 Last Admin: 05/29/24 05:20 Dose: 75 mcg Documented By: Admin: 05/28/24 06:25 Dose: 75 mcg Documented By: supervisor title: 05/27/24 06:20 Dose: 75 mcg Documented By: supervisor title: 05/26/24 05:39 Dose: 75 mcg Documented By: Admin: 05/25/24 06:27 Dose: 75 mcg Documented By: Admin: 05/24/24 05:53 Dose: 75 mcg Documented By: Admin: 05/23/24 06:21 Dose: 75 mcg Documented By: Admin: 05/22/24 06:16 Dose: 75 mcg Documented By: AEAnn Admin: 05/21/24 05:46 Dose: 75 mcg Documented By: AEAnn Admin: 05/20/24 05:27 Dose: 75 mcg Documented By: supervisor title: 05/19/24 04:17 Dose: 75 mcg Documented By: Admin: 05/18/24 05:58 Dose: 75 mcg Documented By: Admin: 05/17/24 06:32 Dose: 75 mcg Documented By: Admin: 05/16/24 09:15 Dose: 75 mcg Documented By: Admin: 05/15/24 05:20 Dose: 75 mcg Documented By: Admin: 05/14/24 06:10 Dose: 75 mcg Documented By: Admin: 05/13/24 06:22 Dose: 75 mcg Documented By: Admin: 05/12/24 04:49 Dose: 75 mcg Documented By: Admin: 05/11/24 05:36 Dose: 75 mcg Documented By: PRODUCTION SORTER Admin: 05/10/24 08:15 Dose: 75 mcg Documented By: ROSS Lorazepam (Lorazepam 0.5 Mg Tab) 0.25 mg PO HS ADI Stop: 06/16/24 20:59 Last Admin: 05/28/24 19:58 Dose: 0.25 mg Documented By: Admin: 05/27/24 21:46 Dose: 0.25 mg Documented By: supervisor title: 05/26/24 20:04 Dose: 0.25 mg Documented By: supervisor title: 05/25/24 20:49 Dose: 0.25 mg Documented By: Admin: 05/24/24 20:12 Dose: 0.25 mg Documented By: Admin: 05/23/24 20:22 Dose: 0.25 mg Documented By: AEAnn Admin: 05/22/24 20:34 Dose: 0.25 mg Documented By: Admin: 05/21/24 20:06 Dose: 0.25 mg Documented By: AEAnn Admin: 05/20/24 20:44 Dose: 0.25 mg Documented By: Admin: 05/19/24 20:24 Dose: 0.25 mg Documented By: supervisor title: 05/18/24 20:18 Dose: 0.25 mg Documented By: supervisor title: 05/17/24 20:28 Dose: 0.25 mg Documented By: MG Magnesium Chloride (Magnesium Chloride W/Calcium 64mg Delayed Rel Tab) 64 mg PO BID ADI Stop: 06/04/24 08:59 Last Admin: 05/29/24 08:05 Dose: 64 mg Documented By: MTAnn Admin: 05/28/24 19:59 Dose: 64 mg Documented By: Admin: 05/28/24 09:07 Dose: 64 mg Documented By: MTAnn Admin: 05/27/24 21:47 Dose: 64 mg Documented By: supervisor title: 05/27/24 08:29 Dose: 64 mg Documented By: Admin: 05/26/24 20:07 Dose: 64 mg Documented By: supervisor title: 05/26/24 09:07 Dose: 64 mg Documented By: Admin: 05/25/24 20:51 Dose: 64 mg Documented By: Admin: 05/25/24 08:52 Dose: 64 mg Documented By: Admin: 05/24/24 20:12 Dose: 64 mg Documented By: Admin: 05/24/24 10:14 Dose: 64 mg Documented By: J Admin: 05/23/24 20:24 Dose: 64 mg Documented By: Admin: 05/23/24 08:36 Dose: 64 mg Documented By: Admin: 05/22/24 20:35 Dose: 64 mg Documented By: K Admin: 05/22/24 11:10 Dose: 64 mg Documented By: Admin: 05/21/24 20:09 Dose: 64 mg Documented By: Admin: 05/21/24 08:38 Dose: 64 mg Documented By: Admin: 05/20/24 20:47 Dose: 64 mg Documented By: Admin: 05/20/24 09:11 Dose: 64 mg Documented By: Admin: 05/19/24 20:29 Dose: 64 mg Documented By: supervisor title: 05/19/24 07:50 Dose: 64 mg Documented By: Admin: 05/18/24 20:23 Dose: 64 mg Documented By: supervisor title: 05/18/24 07:44 Dose: 64 mg Documented By: Admin: 05/17/24 20:31 Dose: 64 mg Documented By: Admin: 05/17/24 08:18 Dose: 64 mg Documented By: Admin: 05/16/24 19:56 Dose: 64 mg Documented By: Admin: 05/16/24 09:15 Dose: 64 mg Documented By: Admin: 05/15/24 19:34 Dose: 64 mg Documented By: [id number] Admin: 05/15/24 07:23 Dose: 64 mg Documented By: Admin: 05/14/24 19:57 Dose: 64 mg Documented By: Admin: 05/14/24 08:37 Dose: 64 mg Documented By: Admin: 05/13/24 19:40 Dose: 64 mg Documented By: Admin: 05/13/24 09:22 Dose: 64 mg Documented By: Admin: 05/12/24 19:28 Dose: 64 mg Documented By: Admin: 05/12/24 08:07 Dose: 64 mg Documented By: Admin: 05/11/24 21:24 Dose: 64 mg Documented By: Admin: 05/11/24 08:39 Dose: 64 mg Documented By: Admin: 05/10/24 20:07 Dose: 64 mg Documented By: PRODUCTION SORTER Admin: 05/10/24 08:15 Dose: 64 mg Documented By: Admin: 05/09/24 19:18 Dose: 64 mg Documented By: Admin: 05/09/24 08:20 Dose: 64 mg Documented By: Admin: 05/08/24 19:47 Dose: 64 mg Documented By: Admin: 05/08/24 09:28 Dose: 64 mg Documented By: Admin: 05/07/24 19:34 Dose: 64 mg Documented By: Admin: 05/07/24 09:49 Dose: 64 mg Documented By: Admin: 05/06/24 19:23 Dose: 64 mg Documented By: Admin: 05/06/24 07:50 Dose: 64 mg Documented By: Admin: 05/05/24 21:09 Dose: 64 mg Documented By: Admin: 05/05/24 09:38 Dose: 64 mg Documented By: JONI Magnesium Oxide (Magnesium Oxide 400 Mg Tab) 400 mg PO BID ADI Stop: 06/04/24 08:59 Last Admin: 05/29/24 08:09 Dose: 400 mg Documented By: Admin: 05/28/24 20:02 Dose: 400 mg Documented By: Admin: 05/28/24 09:06 Dose: 400 mg Documented By: Admin: 05/27/24 21:47 Dose: 400 mg Documented By: supervisor title: 05/27/24 08:29 Dose: 400 mg Documented By: Admin: 05/26/24 20:06 Dose: 400 mg Documented By: supervisor title: 05/26/24 09:07 Dose: 400 mg Documented By: Admin: 05/25/24 20:50 Dose: 400 mg Documented By: Admin: 05/25/24 08:57 Dose: 400 mg Documented By: Admin: 05/24/24 20:16 Dose: 400 mg Documented By: Admin: 05/24/24 09:06 Dose: 400 mg Documented By: Admin: 05/23/24 20:23 Dose: 400 mg Documented By: Admin: 05/23/24 08:36 Dose: 400 mg Documented By: Admin: 05/22/24 20:35 Dose: 400 mg Documented By: Admin: 05/22/24 11:10 Dose: 400 mg Documented By: Admin: 05/21/24 20:08 Dose: 400 mg Documented By: Admin: 05/21/24 08:40 Dose: 400 mg Documented By: Admin: 05/20/24 20:46 Dose: 400 mg Documented By: Admin: 05/20/24 09:11 Dose: 400 mg Documented By: Admin: 05/19/24 20:29 Dose: 400 mg Documented By: supervisor title: 05/19/24 07:55 Dose: 400 mg Documented By: Admin: 05/18/24 20:22 Dose: 400 mg Documented By: supervisor title: 05/18/24 07:45 Dose: 400 mg Documented By: Admin: 05/17/24 20:30 Dose: 400 mg Documented By: Admin: 05/17/24 08:18 Dose: 400 mg Documented By: Admin: 05/16/24 19:56 Dose: 400 mg Documented By: Admin: 05/16/24 09:15 Dose: 400 mg Documented By: Admin: 05/15/24 19:35 Dose: 400 mg Documented By: [id number] Admin: 05/15/24 07:22 Dose: 400 mg Documented By: Admin: 05/14/24 19:58 Dose: 400 mg Documented By: Admin: 05/14/24 08:37 Dose: 400 mg Documented By: Admin: 05/13/24 19:40 Dose: 400 mg Documented By: Admin: 05/13/24 09:22 Dose: 400 mg Documented By: Admin: 05/12/24 19:31 Dose: 400 mg Documented By: Admin: 05/12/24 08:06 Dose: 400 mg Documented By: Admin: 05/11/24 21:25 Dose: 400 mg Documented By: Admin: 05/11/24 08:39 Dose: 400 mg Documented By: Admin: 05/10/24 20:08 Dose: 400 mg Documented By: PRODUCTION SORTER Admin: 05/10/24 08:15 Dose: 400 mg Documented By: Admin: 05/09/24 19:17 Dose: 400 mg Documented By: Admin: 05/09/24 08:20 Dose: 400 mg Documented By: Admin: 05/08/24 19:44 Dose: 400 mg Documented By: Admin: 05/08/24 09:28 Dose: 400 mg Documented By: Admin: 05/07/24 19:32 Dose: 400 mg Documented By: Admin: 05/07/24 09:49 Dose: 400 mg Documented By: Admin: 05/06/24 19:22 Dose: 400 mg Documented By: Admin: 05/06/24 07:50 Dose: 400 mg Documented By: Admin: 05/05/24 21:08 Dose: 400 mg Documented By: Admin: 05/05/24 09:36 Dose: 400 mg Documented By: JONI Melatonin (Melatonin 3 Mg Tab) 3 mg PO HS PRN PRN Reason: Sleep Stop: 06/04/24 00:13 Last Admin: 05/28/24 19:59 Dose: 3 mg Documented By: Admin: 05/27/24 21:47 Dose: 3 mg Documented By: supervisor title: 05/26/24 21:23 Dose: 3 mg Documented By: supervisor title: 05/25/24 20:47 Dose: 3 mg Documented By: Admin: 05/23/24 23:13 Dose: 3 mg Documented By: W Admin: 05/21/24 20:08 Dose: 3 mg Documented By: Admin: 05/19/24 20:23 Dose: 3 mg Documented By: supervisor title: 05/19/24 01:50 Dose: 3 mg Documented By: Admin: 05/17/24 20:31 Dose: 3 mg Documented By: Admin: 05/16/24 20:07 Dose: 3 mg Documented By: Admin: 05/15/24 19:32 Dose: 3 mg Documented By: [id number] Admin: 05/14/24 20:03 Dose: 3 mg Documented By: Admin: 05/13/24 19:43 Dose: 3 mg Documented By: Admin: 05/12/24 19:33 Dose: 3 mg Documented By: Admin: 05/12/24 00:41 Dose: 3 mg Documented By: Admin: 05/08/24 19:44 Dose: 3 mg Documented By: Admin: 05/07/24 19:31 Dose: 3 mg Documented By: LANA Metoprolol Tartrate (Metoprolol Tartrate 50 Mg Tab) 75 mg PO AMHS ADI Stop: 06/15/24 20:59 Last Admin: 05/29/24 08:12 Dose: 75 mg Documented By: Admin: 05/28/24 20:00 Dose: 75 mg Documented By: Admin: 05/28/24 09:06 Dose: 75 mg Documented By: Admin: 05/27/24 21:46 Dose: 75 mg Documented By: supervisor title: 05/27/24 08:29 Dose: Not Given Documented By: Admin: 05/26/24 20:06 Dose: 75 mg Documented By: supervisor title: 05/26/24 09:06 Dose: 75 mg Documented By: Admin: 05/25/24 20:51 Dose: Not Given Documented By: Admin: 05/25/24 08:53 Dose: 100 mg Documented By: Admin: 05/24/24 20:13 Dose: 75 mg Documented By: Admin: 05/24/24 09:05 Dose: 75 mg Documented By: Admin: 05/23/24 20:26 Dose: 75 mg Documented By: Admin: 05/23/24 08:36 Dose: 75 mg Documented By: Admin: 05/22/24 20:35 Dose: 75 mg Documented By: K Admin: 05/22/24 11:10 Dose: 75 mg Documented By: Admin: 05/21/24 20:11 Dose: 75 mg Documented By: Admin: 05/21/24 08:36 Dose: 75 mg Documented By: Admin: 05/20/24 20:52 Dose: 75 mg Documented By: Admin: 05/20/24 09:09 Dose: 75 mg Documented By: Admin: 05/19/24 20:25 Dose: 75 mg Documented By: supervisor title: 05/19/24 07:50 Dose: 75 mg Documented By: Admin: 05/18/24 20:21 Dose: 75 mg Documented By: supervisor title: 05/18/24 07:44 Dose: 75 mg Documented By: Admin: 05/17/24 20:30 Dose: 75 mg Documented By: Admin: 05/17/24 08:18 Dose: 75 mg Documented By: Admin: 05/16/24 19:58 Dose: 75 mg Documented By: MER Miconazole Nitrate (Miconazole Nitrate Powder 85 Gm) 1 appln EXT PRN PRN PRN Reason: Affected Skin Folds Stop: 06/17/24 10:59 Last Admin: 05/23/24 20:31 Dose: 1 appln Documented By: Admin: 05/21/24 17:41 Dose: 1 appln Documented By: Admin: 05/20/24 10:15 Dose: 1 appln Documented By: Admin: 05/19/24 16:21 Dose: 1 appln Documented By: Admin: 05/18/24 20:19 Dose: 1 appln Documented By: MED Mirtazapine (Mirtazapine Tab 15 Mg Tab) 15 mg PO HS ADI Stop: 06/04/24 20:59 Last Admin: 05/28/24 20:02 Dose: 15 mg Documented By: [email or web address] Admin: 05/27/24 21:47 Dose: 15 mg Documented By: supervisor title: 05/26/24 20:07 Dose: 15 mg Documented By: supervisor title: 05/25/24 20:52 Dose: 15 mg Documented By: Admin: 05/24/24 20:16 Dose: 15 mg Documented By: Admin: 05/23/24 20:27 Dose: 15 mg Documented By: Admin: 05/22/24 20:36 Dose: 15 mg Documented By: Admin: 05/21/24 20:09 Dose: 15 mg Documented By: Admin: 05/20/24 20:45 Dose: 15 mg Documented By: Admin: 05/19/24 20:30 Dose: 15 mg Documented By: supervisor title: 05/18/24 20:24 Dose: 15 mg Documented By: supervisor title: 05/17/24 20:31 Dose: 15 mg Documented By: Admin: 05/16/24 19:55 Dose: 15 mg Documented By: Admin: 05/15/24 19:32 Dose: 15 mg Documented By: [id number] Admin: 05/14/24 19:58 Dose: 15 mg Documented By: Admin: 05/13/24 19:42 Dose: 15 mg Documented By: Admin: 05/12/24 19:29 Dose: 15 mg Documented By: Admin: 05/11/24 21:23 Dose: 15 mg Documented By: Admin: 05/10/24 20:05 Dose: 15 mg Documented By: PRODUCTION SORTER Admin: 05/09/24 19:17 Dose: 15 mg Documented By: Admin: 05/08/24 19:46 Dose: 15 mg Documented By: Admin: 05/07/24 19:33 Dose: 15 mg Documented By: Admin: 05/06/24 19:22 Dose: 15 mg Documented By: Admin: 05/05/24 21:06 Dose: 15 mg Documented By: PATSY Ondansetron HCl (Ondansetron Inj 2 Mg/Ml 2 Ml Vial) 4 mg IV Q6H PRN PRN Reason: Nausea Stop: 06/04/24 00:13 Last Admin: 05/10/24 21:14 Dose: 4 mg Documented By: LUPE Pantoprazole Sodium (Pantoprazole 40 Mg Tab) 40 mg PO QAM [facility] Stop: 06/04/24 08:59 Last Admin: 05/29/24 08:05 Dose: 40 mg Documented By: MTAnn Admin: 05/28/24 09:06 Dose: 40 mg Documented By: Admin: 05/27/24 08:29 Dose: 40 mg Documented By: Admin: 05/26/24 09:06 Dose: 40 mg Documented By: Admin: 05/25/24 08:53 Dose: 40 mg Documented By: Admin: 05/24/24 09:05 Dose: 40 mg Documented By: Admin: 05/23/24 08:37 Dose: 40 mg Documented By: Admin: 05/22/24 11:12 Dose: 40 mg Documented By: Admin: 05/21/24 08:39 Dose: 40 mg Documented By: Admin: 05/20/24 09:10 Dose: 40 mg Documented By: Admin: 05/19/24 07:49 Dose: 40 mg Documented By: Admin: 05/18/24 07:44 Dose: 40 mg Documented By: Admin: 05/17/24 08:19 Dose: 40 mg Documented By: Admin: 05/16/24 09:15 Dose: 40 mg Documented By: Admin: 05/15/24 07:21 Dose: 40 mg Documented By: Admin: 05/14/24 08:40 Dose: 40 mg Documented By: Admin: 05/13/24 09:22 Dose: 40 mg Documented By: Admin: 05/12/24 08:06 Dose: 40 mg Documented By: Admin: 05/11/24 08:39 Dose: 40 mg Documented By: JUAN DIEGO Admin: 05/10/24 08:15 Dose: 40 mg Documented By: Admin: 05/09/24 08:19 Dose: 40 mg Documented By: Admin: 05/08/24 09:28 Dose: 40 mg Documented By: Admin: 05/07/24 09:48 Dose: 40 mg Documented By: Admin: 05/06/24 07:50 Dose: 40 mg Documented By: Admin: 05/05/24 09:37 Dose: 40 mg Documented By: JONI Polyethylene Glycol (Polyethylene (Miralax) 17 Gm Pack) 17 gm PO DAILY PRN PRN Reason: Constipation Stop: 06/04/24 00:13 Last Admin: 05/17/24 08:23 Dose: 17 gm Documented By: Admin: 05/14/24 09:46 Dose: 17 gm Documented By: Admin: 05/12/24 08:06 Dose: 17 gm Documented By: Admin: 05/09/24 13:23 Dose: 17 gm Documented By: OCTAVIA Sacubitril/Valsartan (Valsartan/Sacubitril mg Tab) 1 tab PO BID ADI Stop: 06/13/24 08:59 Last Admin: 05/29/24 08:05 Dose: 1 tab Documented By: Admin: 05/28/24 20:01 Dose: 1 tab Documented By: Admin: 05/28/24 09:06 Dose: 1 tab Documented By: Admin: 05/27/24 21:46 Dose: 1 tab Documented By: supervisor title: 05/27/24 08:30 Dose: 1 tab Documented By: Admin: 05/26/24 20:08 Dose: 1 tab Documented By: supervisor title: 05/26/24 09:06 Dose: 1 tab Documented By: Admin: 05/25/24 20:49 Dose: 1 tab Documented By: Admin: 05/25/24 08:54 Dose: 1 tab Documented By: Admin: 05/24/24 20:15 Dose: 1 tab Documented By: Admin: 05/24/24 09:09 Dose: 1 tab Documented By: Admin: 05/23/24 20:24 Dose: 1 tab Documented By: AEAnn Admin: 05/23/24 08:36 Dose: 1 tab Documented By: Admin: 05/22/24 20:36 Dose: 1 tab Documented By: Admin: 05/22/24 11:10 Dose: 1 tab Documented By: MTAnn Admin: 05/21/24 20:08 Dose: 1 tab Documented By: AEAnn Admin: 05/21/24 08:37 Dose: 1 tab Documented By: Admin: 05/20/24 20:52 Dose: 1 tab Documented By: Admin: 05/20/24 09:10 Dose: 1 tab Documented By: Admin: 05/19/24 20:28 Dose: 1 tab Documented By: supervisor title: 05/19/24 07:49 Dose: 1 tab Documented By: Admin: 05/18/24 20:24 Dose: 1 tab Documented By: supervisor title: 05/18/24 07:45 Dose: 1 tab Documented By: Admin: 05/17/24 20:30 Dose: 1 tab Documented By: Admin: 05/17/24 08:19 Dose: 1 tab Documented By: Admin: 05/16/24 19:55 Dose: 1 tab Documented By: Admin: 05/16/24 09:16 Dose: 1 tab Documented By: Admin: 05/15/24 19:36 Dose: 1 tab Documented By: [id number] Admin: 05/15/24 07:21 Dose: 1 tab Documented By: Admin: 05/14/24 19:58 Dose: 1 tab Documented By: Admin: 05/14/24 08:39 Dose: 1 tab Documented By: MARSHAL Simvastatin (Simvastatin 40 Mg Tab) 40 mg PO HS ADI Stop: 06/04/24 20:59 Last Admin: 05/28/24 20:02 Dose: 40 mg Documented By: Admin: 05/27/24 21:46 Dose: 40 mg Documented By: supervisor title: 05/26/24 20:08 Dose: 40 mg Documented By: supervisor title: 05/25/24 20:50 Dose: 40 mg Documented By: Admin: 05/24/24 20:16 Dose: 40 mg Documented By: Admin: 05/23/24 20:24 Dose: 40 mg Documented By: Admin: 05/22/24 20:36 Dose: 40 mg Documented By: Admin: 05/21/24 20:06 Dose: 40 mg Documented By: Admin: 05/20/24 20:49 Dose: 40 mg Documented By: Admin: 05/19/24 20:30 Dose: 40 mg Documented By: supervisor title: 05/18/24 20:24 Dose: 40 mg Documented By: supervisor title: 05/17/24 20:31 Dose: 40 mg Documented By: Admin: 05/16/24 19:55 Dose: 40 mg Documented By: Admin: 05/15/24 19:36 Dose: 40 mg Documented By: [id number] Admin: 05/14/24 20:00 Dose: 40 mg Documented By: Admin: 05/13/24 19:43 Dose: 40 mg Documented By: Admin: 05/12/24 19:28 Dose: 40 mg Documented By: Admin: 05/11/24 21:21 Dose: 40 mg Documented By: Admin: 05/10/24 20:06 Dose: 40 mg Documented By: PRODUCTION SORTER Admin: 05/09/24 19:17 Dose: 40 mg Documented By: Admin: 05/08/24 19:46 Dose: 40 mg Documented By: Admin: 05/07/24 19:34 Dose: 40 mg Documented By: Admin: 05/06/24 19:24 Dose: 40 mg Documented By: Admin: 05/05/24 21:05 Dose: 40 mg Documented By: AES Vitamin D (Cholecalciferol 25 Mcg (1000 Units) Tab) 25 mcg PO DAILY ADI Stop: 06/28/24 08:59 Last Admin: 05/29/24 08:05 Dose: 25 mcg Documented By: M[place] [address] IN/OBS CONSULT LVL 4,60M Patient Type New History Detailed Exam Detailed Medical Decision Making Moderate Complexity Diagnoses 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
[2024-05-29] MEDS: QUEtiapine FUMARATE 25 MG TABLET PO SCH (19:10)
--- NOTE | 2024-05-30 13:46 | Hospitalist Progress Note ---
Date of Service May 30, 2024 Assessment & Plan (1) COVID-19: Plan: Resolved ?if possibly contributing to presentation with increased memory issues and hallucinations over the week prior to admission. viral testing not obtained on admission but had not been hypoxic/no cough reported PRIOR [employer] testing POSITIVE for COVID on 05/15, newer cough on exam but on RA/no hypoxia and isolation precautions placed/moved to isolation room. CXR without consolidation MENTATION MUCH IMPROVED 05/17, LESS COUGH, DENIES SIGNIFICANT SOB TODAY w/ Xopenex/mucinex overnight Did have temp 38.1C overnight, tylenol effective Continue supportive care w/ incentive spirometry, mucinex BID Xopenex made q8h scheduled as not given any further PRN (avoiding albuterol to prevent worsening tachycardia w/ afib/flutter) and HR remaining stable on 75mg BID for now WBC low, suspect 2nd to viral process. Hgb stable. BUN/Cr stable. No further fever this morning but tylenol available/monitoring and feeling much better/mentation MUCH improved (denies urinary sx today but did have incontinence w/ coughing on 05/16). Urine cx pending given incontinence/delirium to ensure not having UTI given start Jardiance. Weights down w/ Jardiance/not given lasix as no increased LE edema/hypoxia but can consider if needing to hold/UA+ --Bcx 1 ordered but lactic and procal checked and not elevated/procal <0.02 Frequent orientation, maintain day/night schedules Continues on tx w/ Entresto for CHF/reduced EF, increased metoprolol 75m BID w/ improvement rate control. Did order 1gm IV mag ordered to keep closer to 2 and remains on increased metoprolol 75mg BID and appreciate recs/assistance from Cardiology (2) Atrial fibrillation: Plan: Concerns for taking too much medication at home +/- prior dc'd sotalol. TSH elevated, Synthroid adjusted. Initially held metoprolol but resumed for rate control Concerns for afib/flutter with tachybrady and cardiology consulted and metoprolol resumed/increased but with pauses however continued on 50mg BID and checked ECHO for further eval which noted new reduction in EF and started on jardiance/entresto 05/14 and continues on such. Metoprolol increased to 75mg BID for rate control 05/16, improvement in rates. No further drops/pauses and will continue current dose and plan to switch to metoprolol at discharge. Remains on telemetry, eliquis BID. keep mag/K replete (3) Confusion: Plan: Multifactorial - Possible toxic encephalopathy due to drugs * Presented with increased confusion and hallucinations over the week leading to admission in the setting of CHRONIC cognitive impairment/dementia wandering outside looking for granddaughter. Also reports seeing who ~4 yrs ago. Hx MCA CVA. CT head/CTA head/neck and MRI brain NEGATIVE for acute process * Lyme negative, B12 not deficient. Suspect combination of medications, undertreated hypothyroidism/afib, dementia w/ delirium and CHF with new reduction in ER. Now with + COVID testing and slightly more confused on 05/15 PM prompting swab and + cough on 05/16 with worsening confusion/delirium with room change as well as suspected meds for depression/anxiety/agitation however adjustments as below and MUCH IMPROVED 05/17 --> Had been newly started seroquel 25mg/50mg for agitation and need for restraints last week. Suspected with her prior remeron 15mg HS and buspar/sertaline 100mg HS TOO MUCH and held buspar/sertaline and continued seroquel however reduced dose PM/held AM dose as given LOW DOSE ativan to sleep which was very effective last night/continued however given start entresto/risk for hypotension and worsened renal function, made further adjustments and presently would continue the following: * Seroquel 12.5mg HS to help with mood/sundowning in patient w/ dementia/delirium. STOP/avoid further AM dosing unless needed but appearing great this morning * Continue Remeron 15mg HS, decreased ativan to 0.25mg but can increase back to 0.5mg if needed as had been tolerating/mentation much improved UA/cx pending as above given start Jardiance Supportive care for #1, steroids if develops hypoxia but 95% on RA this afternoon 05/29/2024: Patient refusing meds and examination. Walking the hallways "yelling for family and that we are killing babies here". Refusing breakfast as she feels "we are poisoning her" Psych consult placed Called and update Daniella Duff RN from behavioral health 05/30/2024: Patient is very cooperative today. She is taking her meds today. She continues with hallucinations but is much better. Medications adjusted per psychiatry recommendations yesterday. (4) Cardiomyopathy: Plan: ECHO obtained to assess EF/valvular disease w/ tachy/anju concerns and pauses ECHO noting mild-moderately reduced LV systolic function (EF 35-40%), mild-mod AR, mod-severe MR, mild MS, mod TR. RVSP normal ?related to afib/flutter with uncontrolled rates Cards consulted, unclear etiology but per cards unlikely ischemic. Entresto/Jardiance started/continued as above. Metoprolol increased for rate control/switch to succinate as able if rates remaining stable w/ present dose (improved from 05/16) Further reduced seroquel while on entresto prevent JAKUB/hypotension and BP stable presently Will need f/u at dc (5) Bradycardia: Plan: Bradycardic in the 40s50s on admission. EKG w/ afib/slow ventricular rate, nonspecific TW abn on admission. Lyme testing negative. Synthroid adjustment. Cards consulted for concerns for need for pacemaker and no plans at this time/continue metoprolol as above (6) Hypothyroidism: Plan: TSH elevated and elevated in February and INCREASED Synthroid 75mcg daily. Most recent TSH 7.251 05/09/2024 Will need repeat TFT outpt 4wks/adj as needed (7) Diabetes mellitus: Plan: A1c 6.9 On metformin 500mg BID, B12 not deficient Started on Jardiance for cardiomyopathy as above Orders for NovoLog fell off the chart. Will restart SSI continue to follow BSGs Patient now compliant with oral medications. She agrees to NovoLog sliding scale insulin. 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 Monitor Was refusing meds 05/29/2024 but took meds today. 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 Appears prior rx for prn lasix for edema. Now with HF with REDUCED EF to 35-40% as above Started Entresto, Jardiance 05/14, continued for now Metoprolol as outlined, plan for succinate at dc Some LE edema but less today without diuretics and weights down w/ jardiance and suspect promoting diuresis w/ her entresto for cardiomyopathy and 95% on RA without cough today and will monitor on current regimen Will need CHF clinic f/u at discharge Weight is stable at 78.6kg Plan DVT proph: dionne BID continued Updated granddaughter Maria Antonia via phone 05/16, 05/17 as daughter Domi out of town/in [facility]. Her number is [phone] and request updates daily. Also was provided # for son/uncle Ronny [phone] and apparently had issues with obtaining update from nursing overnight again and was connected with information for service excellence. Did discussed prior about updating one family member daily/point of contact but should not be having as many issues w/ general update from nursing regarding his mother and hopefully will not have any further issues. Instructed to call if needing to talk to provider if not already updating granddaughter but I have been updating Maria Antonia as primary contact as instructed at this time as brother also supposed to be flying out/traveling however I do not know if those plans have changed. In either case, please update family daily to prevent any issues and to assist in the care of Ms Lexa. Dispo: rehab/[facility] planned EVENTUALLY, now w/ COVID and plan was for [facility] however per CM they do not have isolation room available and policy is to isolate 10 days from positive testing. CM following Admission and Anticipated Discharge Date Admission Date: May 06, 2024 Subjective Attending: Dr. Borden Patient seen and examined at bedside. Much better today with mentation. Agreed to take meds this morning. Ambulating in hallways. No pain or SOB today. Continues to await placement Review of Systems 2 Review of Systems: A total of 10 systems was reviewed and is negative other than as listed in the HPI Physical Exam 2 Physical Exam: GENERAL : No acute distress EYES: No icterus, gaze conjugate NOSE: No evidence of epistaxis MOUTH: No lesions or candidiasis NECK: Supple LUNGS: CTA B/L, no wheezes, rales or rhonchi HEART: Regular, rate controlled ABDOMEN: Soft, NT, ND, BS Present EXTREMITIES: No LE edema, pedal pulses intact NEURO: A&OX3 Results & Data Results & Data Vital Signs (Past 12 Hours) Vital Signs Temp Pulse Resp BP Pulse Ox O2 Del Method 05/30/24 08:11 36.3 C L 66 18 116/72 99 Room Air Laboratory Results 05/27/24 21:33 05/27/24 21:33 Diagnostic Findings Chest X-Ray 05/04/24 17:48 XR chest 1V not portable CLINICAL HISTORY: AMS TECHNIQUE: Single frontal radiograph of the chest was obtained. Comparison: Comparison is made to chest radiograph 02/21/2024 FINDINGS: No lines and tubes are seen. Cardiomegaly is noted. The aortic arch is calcified. The lungs are clear. No evidence of pleural effusion or pneumothorax. IMPRESSION: No acute chest disease. Cardiomegaly is noted. ACT 112: Negative or not required by law. Electronically signed by: Bandar Jay M.D. 05/04/2024 6:[address] 05/04/24 17:48 CT head/brain wo con CLINICAL HISTORY: altered mental status Technique: Contiguous axial CT images of the head were acquired from the base of the skull to the vertex without intravenous contrast administration. Images were viewed in brain, subdural and bone windows. Automated dose lowering techniques and/or adjustment according to patient size were utilized for this exam. Comparison: Comparison is made to CT head 02/21/2024 Findings: The ventricles, basal cisterns, and cerebral sulci are normal. There is no acute intracranial hemorrhage or evidence of acute territorial infarction. Neither mass effect, shift of the midline structures, nor abnormal extra-axial fluid collections are shown. Focal encephalomalacia in the right parietal lobe is unchanged. Imaged portions of the paranasal sinuses and mastoid air cells are clear. The orbits appear normal. There are no acute fractures of the calvaria or scalp swelling. Impression: No acute intracranial hemorrhage, no evidence of acute territorial infarction or other acute intracranial disease process. ACT 112: Negative or not required by law. Electronically signed by: Bandar Jay M.D. 05/04/2024 6:23 PM Brain MRI 05/04/24 21:45 Exam(s): MRI HEAD W/WO Contrast IV Amt: 8cc gadavist EXAM: MR Head Without and With Intravenous Contrast CLINICAL HISTORY: Reason for exam: stroke r/o. TECHNIQUE: Magnetic resonance images of the head/brain without and with intravenous contrast in multiple planes. CONTRAST: Patient received 8cc gadavist of IV contrast COMPARISON: Prior head CT from May 04, 2024. FINDINGS: Brain: Remote ischemic injury of the right temporal, and occipital lobes with encephalomalacia and gliosis. Remote ischemic injury of the right cerebellum. Mild nonspecific white matter changes. The flow voids at the base of the brain are intact. No mass. No hemorrhage. No acute infarct. No evidence of abnormal enhancement. The dural venous sinuses are patent. Ventricles: Unremarkable. No ventriculomegaly. Bones/joints: Unremarkable. No acute fracture. Sinuses: Chronic ethmoid sinusitis. No acute sinusitis. Mastoid air cells: Unremarkable as visualized. No mastoid effusion. Orbits: Bilateral lens replacements. IMPRESSION: No evidence of acute intracranial pathology. Electronically signed by: Love Quintero MD 05/05/24 02:04 AM Head CTA 05/04/24 22:47 Exam(s): CTA HEAD W/WO Contrast IV Amt: 119ml optiray 320 EXAM: CT Angiography Head Without and With Intravenous Contrast CLINICAL HISTORY: Reason for exam: r/o stroke. TECHNIQUE: Axial computed tomographic angiography images of the head without and with intravenous contrast. CTDI is 20 mGy and DLP is 516.47 mGy-cm. Automated exposure control was utilized for the study. A dose lowering technique was utilized adhering to the principles of ALARA. MIP reconstructed images were created and reviewed. CONTRAST: Patient received 119ml optiray 320 of IV contrast COMPARISON: No relevant prior studies available. FINDINGS: VASCULATURE: The dural venous sinuses are patent. Right internal carotid artery: No acute findings. Intracranial segment is patent with no significant stenosis. No aneurysm. Right anterior cerebral artery: Unremarkable. No occlusion or significant stenosis. No aneurysm. Right middle cerebral artery: Unremarkable. No occlusion or significant stenosis. No aneurysm. Right posterior cerebral artery: Unremarkable. No occlusion or significant stenosis. No aneurysm. Right vertebral artery: Unremarkable as visualized. Left internal carotid artery: No acute findings. Intracranial segment is patent with no significant stenosis. No aneurysm. Left anterior cerebral artery: Unremarkable. No occlusion or significant stenosis. No aneurysm. Left middle cerebral artery: Unremarkable. No occlusion or significant stenosis. No aneurysm. Left posterior cerebral artery: Unremarkable. No occlusion or significant stenosis. No aneurysm. Left vertebral artery: Unremarkable as visualized. Basilar artery: Unremarkable. No occlusion or significant stenosis. No aneurysm. HEAD: Brain: No acute findings. Remote ischemic injury of the right frontal, temporal and parietal lobes with encephalomalacia and gliosis. No hemorrhage. No edema. Normal enhancement. Ventricles: Unremarkable. No ventriculomegaly. Bones/joints: No acute fracture. Soft tissues: Unremarkable. Sinuses: Unremarkable as visualized. No acute sinusitis. Mastoid air cells: Unremarkable as visualized. No mastoid effusion. IMPRESSION: Negative CT angiogram of the head. Electronically signed by: Love Quintero MD 05/05/24 01:47 AM Neck CTA 05/04/24 22:47 Exam(s): CTA NECK W/WO Contrast IV Amt: 119ml optiray 320 EXAM: CT Angiography Neck With Intravenous Contrast CLINICAL HISTORY: Reason for exam: r/o stroke. TECHNIQUE: Routine carotid CT angiography protocol was performed with intravenous contrast. NASCET criteria using the distal ICAs for comparison were used for evaluation of stenoses. CTDI is 37.37 mGy and DLP is 18.68 mGy-cm. Automated exposure control was utilized for the study. A dose lowering technique was utilized adhering to the principles of ALARA. MIP reconstructed images were created and reviewed. CONTRAST: Patient received 119ml optiray 320 of IV contrast COMPARISON: None. FINDINGS: VASCULATURE: Ectasia of the ascending aorta measuring 34.6 mm in diameter. Right common carotid artery: Unremarkable. No occlusion or significant stenosis. No dissection. Right internal carotid artery: Unremarkable. Extracranial segment is patent with no occlusion or significant stenosis. No dissection. Right external carotid artery: Unremarkable. No occlusion. Right vertebral artery: Unremarkable. No occlusion or significant stenosis. No dissection. Left common carotid artery: Unremarkable. No occlusion or significant stenosis. No dissection. Left internal carotid artery: Unremarkable. Extracranial segment is patent with no occlusion or significant stenosis. No dissection. Left external carotid artery: Unremarkable. No occlusion. Left vertebral artery: Unremarkable. No occlusion or significant stenosis. No dissection. NECK: Bones/joints: Unremarkable. No acute fracture. Soft tissues: Prominent mediastinal and hilar lymph nodes. Prominent cervical lymph nodes. Lung apices: Bronchitis with pneumonitis and mosaic type pattern of pulmonary opacities. CAROTID STENOSIS REFERENCE USING NASCET CRITERIA: % ICA stenosis = (1 - narrowest ICA diameter/diameter of distal cervical ICA) x 100. Mild - <50% stenosis. Moderate - 50-69% stenosis. Severe - 70-94% stenosis. Near occlusion - 95-99% stenosis. Occluded - 100% stenosis. IMPRESSION: Negative CTA neck. Electronically signed by: Love Quintero MD 05/05/24 01:53 AM Chest X-Ray 05/16/24 09:12 XR chest 1V portable CLINICAL HISTORY: +COVID COMPARISON STUDY: Chest radiograph May 04, 2024. FINDINGS: Lung volumes are normal. Lungs are clear. There is no pneumothorax or pleural effusion. Moderate cardiomegaly is unchanged. Mediastinal contours are normal. There is no evidence for pulmonary edema. IMPRESSION: No acute cardiopulmonary findings. No change in appearance of the chest. Cardiomegaly. ACT 112: Negative or not required by law. Electronically signed by: Sourav Norton M.D. 05/16/2024 9:[address] 05/23/24 11:32 CT head/brain wo con CLINICAL HISTORY: 69 years-old Female with Stroke rule out. Acute stroke like symptoms TECHNIQUE: Multiple axial CT images of the head were obtained without contrast. A dose lowering technique was utilized adhering to the principles of ALARA. CT DOSE: 547.75 mGy.cm COMPARISON: Brain MRI 05/04/2024 FINDINGS: No acute intracranial hemorrhage, midline shift, intracranial mass, hydrocephalus, territorial ischemia or abnormal extra-axial collection. Involutional changes with chronic microvascular ischemic disease. Chronic right temporoparietal infarct with encephalomalacia. The calvarium is intact. Prior bilateral lens repair. The paranasal sinuses, mastoid air cells, and middle ear cavities are clear. IMPRESSION: Chronic findings as above without acute intracranial abnormality. ACT 112: Negative or not required by law. The above report was generated using voice recognition software. It may contain grammatical, syntax or spelling errors. Electronically signed by: Mario Dominguez M.D. 05/23/2024 12:41 PM PG Care Time/CCT Total # of Minutes Spent Total Time Spent with Patient: Total time spent is greater than 50% in coordination of care (as documented) at patient's floor/unit and/or counseling patient: Coding Level of Care Code 89078 SUB INP/OBS CARE 09/04MIN Diagnoses COVID-19 U07.1 Atrial fibrillation I48.91 Confusion R41.0 Cardiomyopathy I42.9 Bradycardia R00.1 Hypothyroidism E03.9 Diabetes mellitus E11.9 Hypertension I10 Left-sided visual neglect R41.4 Chronic diastolic CHF (congestive heart failure) I50.32 Time Spent (min) 25
[2024-05-30] MEDS: INSULIN ASPART PER UNIT CHARGE SC SCH (17:46)
--- NOTE | 2024-05-31 11:12 | Hospitalist Progress Note ---
Date of Service May 31, 2024 Assessment & Plan (1) Confusion: Plan: Multifactorial - Possible toxic encephalopathy due to drugs * Presented with increased confusion and hallucinations over the week leading to admission in the setting of CHRONIC cognitive impairment/dementia wandering outside looking for granddaughter. Also reports seeing who ~4 yrs ago. Hx MCA CVA. CT head/CTA head/neck and MRI brain NEGATIVE for acute process on admission * Lyme negative, B12 not deficient. * Suspect combination of medications, undertreated hypothyroidism/afib, dementia w/ delirium and CHF with new reduction in EF Urine culture checked given incontinence/delirium to ensure not having UTI since starting Jardiance --> negative Frequent orientation, maintain day/night schedules Acute metabolic delirium secondary to hypovolemia in the setting of dehydration on 05/23 --> improved with IV fluids > Obtained Head CT for completeness which was negative for acute process. History of chronic right temporoparietal infarct with encephalomalacia Worsening confusion 05/29, psych consulted - seroquel 12.5mg QAM, 25mg HS and 12.5mg daily prn. - can continue lorazepam, but d/c if nightly confusion occurs - continue mirtazapine Family cannot take patient home safely - CM Following (2) COVID-19: Plan: [employer] testing POSITIVE for COVID on 05/15 - CXR without consolidation, Lactate and procal WNL - No hypoxia, stable on room air, Blood cultures negative - Supportive care with incentive spirometry, Mucinex, Flonase inhaler, Duoneb, Xopenex -- no further respiratory symptoms - Off isolation precautions 05/25, no longer requiring 1:1 RN (3) Atrial fibrillation: Plan: Concerns for taking too much medication at home +/- prior dc'd sotalol - TSH elevated, Synthroid adjusted. - metoprolol for rate control - continue Eliquis BID A-fib/flutter with tachybrady syndrome / CHF / Cardiomyopathy - Cardiology consulted: unclear etiology but unlikely to be ischemic. - Echo noted new reduction in EF to 35-40%, mod-severe mitral regurgitation - Started on Jardiance/Entresto 05/14 and continues on such. Lisinopril discontinued > Follow-up with CHF clinic at discharge - Continue Metoprolol tartrate 75mg BID, improvement in rates - No further events on tele monitor -- discontinued heart monitor 05/25 (4) Hypothyroidism: Plan: TSH elevated and elevated in February and INCREASED Synthroid 75mcg daily on 05/10/24 - Will need repeat TFT outpatient in 4 weeks from increased dose. Adjust as needed (5) Diabetes mellitus: Plan: A1c 6.9. Home medication: metformin 500mg BID (held) Started on Jardiance for cardiomyopathy as above Patient has gotten very minimal insulin with SSI - monitor BSG to see if Metformin should be restarted (6) Hypertension: Plan: Prior to admission, was on metoprolol 100mg BID, lisinopril 2.5mg Lisinopril discontinued --> now on entresto Metoprolol continued at 75mg BID for rate control (7) Left-sided visual neglect: Plan: from [facility] CVA Plan Updated daughter via phone call 05/25 and 05/23, 05/26, 05/27, 05/28 Updated granddaughter, Maria Antonia, daily via phone while mother, Harsha, was traveling Dispo: continued inpatient stay, awaiting placement VTE PPx: Eliquis BID CODE STATUS: Full code Admission and Anticipated Discharge Date Admission Date: May 06, 2024 Subjective Patient seen this morning, sitting up in bed. Upset that there is a meeting today that she is not a part of, discussed that the meeting is not taking place here and she would not be able to attend. She then tells me about how she used to drink alcohol.. Review of Systems Review of Systems: All systems reviewed & are unremarkable except as noted in Subjective Physical Exam Physical Exam: General: NAD, VS as above, lying in bed, pleasant Resp: normal respiratory effort, lungs clear to auscultation CV: afib, no murmur, Abd: non tender, soft Extremities: Moves all extremities, no edema Neuro: A&O x2 Results & Data Results & Data Vital Signs (Past 12 Hours) Vital Signs Temp Pulse Resp BP Pulse Ox O2 Del Method 05/31/24 07:51 97.3 F L 72 20 106/68 98 Room Air Laboratory Results POC glucose reviewed PG Care Time/CCT Total # of Minutes Spent Total Time Spent with Patient: Total time spent is greater than 50% in coordination of care (as documented) at patient's floor/unit and/or counseling patient: Coding Level of Care Code 13295 SUB INP/OBS CARE 1/25MIN Diagnoses Confusion R41.0 COVID-19 U07.1 Atrial fibrillation I48.91 Hypothyroidism E03.9 Diabetes mellitus E11.9 Hypertension I10 Left-sided visual neglect R41.4
[2024-05-31] MEDS: QUEtiapine FUMARATE 25 MG TABLET PO SCH (12:21)
--- NOTE | 2024-06-01 12:21 | Hospitalist Progress Note ---
Date of Service June 01, 2024 Assessment & Plan (1) Confusion: Plan: Multifactorial - Possible toxic encephalopathy due to drugs * Presented with increased confusion and hallucinations over the week leading to admission in the setting of CHRONIC cognitive impairment/dementia wandering outside looking for granddaughter. Also reports seeing who ~4 yrs ago. Hx MCA CVA. CT head/CTA head/neck and MRI brain NEGATIVE for acute process on admission * Lyme negative, B12 not deficient. UC negative. * Suspect combination of medications, undertreated hypothyroidism/afib, dementia w/ delirium and CHF with new reduction in EF Frequent orientation, maintain day/night schedules Acute metabolic delirium secondary to hypovolemia in the setting of dehydration on 05/23 --> improved with IV fluids > Obtained Head CT for completeness which was negative for acute process. History of chronic right temporoparietal infarct with encephalomalacia Worsening confusion 05/29, psych consulted - seroquel 12.5mg QAM, 25mg HS and 12.5mg daily prn. - can continue lorazepam, but d/c if nightly confusion occurs - continue mirtazapine Family cannot take patient home safely - CM Following plan for D/c to [facility] when arranged (2) COVID-19: Plan: [employer] testing POSITIVE for COVID on 05/15 - CXR without consolidation, Lactate and procal WNL - Supportive care with incentive spirometry, Mucinex, Flonase inhaler, Duoneb, Xopenex -- no further respiratory symptoms - Off isolation precautions 05/25, no longer requiring 1:1 RN (3) Atrial fibrillation: Plan: Concerns for taking too much medication at home +/- prior dc'd sotalol - TSH elevated, Synthroid adjusted. - metoprolol for rate control - continue Eliquis BID A-fib/flutter with tachybrady syndrome / CHF / Cardiomyopathy/Hypertension - Cardiology consulted: unclear etiology but unlikely to be ischemic. - Echo noted new reduction in EF to 35-40%, mod-severe mitral regurgitation - Started on Jardiance/Entresto 05/14. Lisinopril discontinued > Follow-up with CHF clinic at discharge - No further events on tele monitor -- discontinued heart monitor 05/25 - Metoprolol decreased to 50mg BID 06/01 -? seroquel increase lowering BP (4) Hypothyroidism: Plan: TSH elevated and elevated in February and INCREASED Synthroid 75mcg daily on 05/10/24 - Will need repeat TFT outpatient in 4 weeks from increased dose. Adjust as needed (5) Diabetes mellitus: Plan: A1c 6.9. Home medication: metformin 500mg BID (held) Started on Jardiance for cardiomyopathy as above Patient has gotten very minimal insulin with SSI - monitor BSG to see if Metformin should be restarted (6) Left-sided visual neglect: Plan: from [facility] CVA Plan Updated daughter via phone call 05/25 and 05/23, 05/26, 05/27, 05/28, 06/01 Updated granddaughter, Maria Antonia, daily via phone while mother, Harsha, was traveling Dispo: continued inpatient stay, awaiting placement VTE PPx: Eliquis BID CODE STATUS: Full code Admission and Anticipated Discharge Date Admission Date: May 06, 2024 Subjective Patient seen sitting up in the chair. Tearful as she states she wants to go home. She just got off the phone with her son and daughter and states they plan to call her again later. No acute concerns. States she has moved her bowels Review of Systems Review of Systems: All systems reviewed & are unremarkable except as noted in Subjective Physical Exam Physical Exam: General: NAD, VS as above, sitting up in the chair Resp: normal respiratory effort, lungs clear to auscultation CV: afib, no murmur, Abd: non tender, soft Extremities: Moves all extremities, no edema Neuro: A&O x1 Results & Data Results & Data Vital Signs (Past 12 Hours) Vital Signs Temp Pulse Resp BP Pulse Ox O2 Del Method 06/01/24 08:11 97.5 F L 69 20 91/57 L 97 Room Air Laboratory Results [id number] glucose reviewed PG Care Time/CCT Total # of Minutes Spent Total Time Spent with Patient: Total time spent is greater than 50% in coordination of care (as documented) at patient's floor/unit and/or counseling patient: Coding Level of Care Code 53353 SUB INP/OBS CARE 2/35MIN Diagnoses Confusion R41.0 COVID-19 U07.1 Atrial fibrillation I48.91 Hypothyroidism E03.9 Diabetes mellitus E11.9 Left-sided visual neglect R41.4
[2024-06-01] MEDS: METOPROLOL TARTRATE 50 MG TAB PO SCH (20:43)
--- NOTE | 2024-06-02 10:09 | Hospitalist Progress Note ---
Date of Service June 02, 2024 Assessment & Plan (1) Confusion: Plan: Multifactorial - Possible toxic encephalopathy due to drugs * Presented with increased confusion and hallucinations over the week leading to admission in the setting of CHRONIC cognitive impairment/dementia wandering outside looking for granddaughter. Also reports seeing who ~4 yrs ago. Hx MCA CVA. CT head/CTA head/neck and MRI brain NEGATIVE for acute process on admission * Lyme negative, B12 not deficient. UC negative. * Suspect combination of medications, undertreated hypothyroidism/afib, dementia w/ delirium and CHF with new reduction in EF Frequent orientation, maintain day/night schedules Acute metabolic delirium secondary to hypovolemia in the setting of dehydration on 05/23 --> improved with IV fluids > Obtained Head CT for completeness which was negative for acute process. History of chronic right temporoparietal infarct with encephalomalacia Worsening confusion 05/29, psych consulted - Seroquel 12.5mg QAM, 25mg HS and 12.5mg daily prn. - can continue lorazepam, but d/c if nightly confusion occurs - continue mirtazapine Family cannot take patient home safely - CM Following plan for D/c to [facility] when arranged (2) COVID-19: Plan: [employer] testing POSITIVE for COVID on 05/15 - CXR without consolidation, Lactate and procal WNL - Supportive care with incentive spirometry, Mucinex, Flonase inhaler, Duoneb, Xopenex -- no further respiratory symptoms - Off isolation precautions 05/25, no longer requiring 1:1 RN (3) Atrial fibrillation: Plan: Concerns for taking too much medication at home +/- prior dc'd sotalol - TSH elevated, Synthroid adjusted. - metoprolol for rate control - continue Eliquis BID A-fib/flutter with tachybrady syndrome / CHF / Cardiomyopathy/Hypertension - Cardiology consulted: unclear etiology but unlikely to be ischemic. - Echo noted new reduction in EF to 35-40%, mod-severe mitral regurgitation - Started on Jardiance/Entresto 05/14. Lisinopril discontinued > Follow-up with CHF clinic at discharge - No further events on tele monitor -- discontinued heart monitor 05/25 - Metoprolol decreased to 50mg BID 06/01 - BP improving -? seroquel increase lowering BP (4) Hypothyroidism: Plan: TSH elevated and elevated in February and INCREASED Synthroid 75mcg daily on 05/10/24 - Will need repeat TFT outpatient in 4 weeks from increased dose. Adjust as needed (5) Diabetes mellitus: Plan: A1c 6.9. Home medication: metformin 500mg BID (held) Started on Jardiance for cardiomyopathy as above Patient has gotten very minimal insulin with SSI - monitor BSG to see if Metformin should be restarted (6) Left-sided visual neglect: Plan: from [facility] CVA Plan Updated daughter via phone call 05/25 and 05/23, 05/26, 05/27, 05/28, 06/01 Updated granddaughter, Maria Antonia, daily via phone while mother, Harsha, was traveling Dispo: continued inpatient stay, awaiting placement VTE PPx: Eliquis BID CODE STATUS: Full code Admission and Anticipated Discharge Date Admission Date: May 06, 2024 Subjective Patient seen sitting up in the chair, thought she just heard her daughter and son in the hallway but they are not here. She is upset as she wants to go home but redirectable. No acute concerns. Given fresh water Review of Systems Review of Systems: All systems reviewed & are unremarkable except as noted in Subjective Physical Exam Physical Exam: General: NAD, vitals as above, sitting up in the chair Pulm: breathing unlabored CV: well perfused extremities: moves all extremities A&O x 1 Results & Data Results & Data Vital Signs (Past 12 Hours) Vital Signs Temp Pulse Resp BP BP Pulse Ox O2 Del Method 06/02/24 07:31 97.5 F L 55 L 16 121/65 98 Room Air 06/02/24 00:42 98.1 F 79 20 108/63 98 Room Air Laboratory Results POC glucose reviewed PG Care Time/CCT Total # of Minutes Spent Total Time Spent with Patient: Total time spent is greater than 50% in coordination of care (as documented) at patient's floor/unit and/or counseling patient: Coding Level of Care Code 06193 SUB INP/OBS CARE 125MIN Diagnoses Confusion R41.0 COVID-19 U07.1 Atrial fibrillation I48.91 Hypothyroidism E03.9 Diabetes mellitus E11.9 Left-sided visual neglect R41.4
--- NOTE | 2024-06-03 15:00 | Hospitalist Progress Note ---
Date of Service June 03, 2024 Assessment & Plan (1) Confusion: Plan: Multifactorial - Possible toxic encephalopathy due to drugs * Presented with increased confusion and hallucinations over the week leading to admission in the setting of CHRONIC cognitive impairment/dementia wandering outside looking for granddaughter. Also reports seeing who ~4 yrs ago. Hx MCA CVA. CT head/CTA head/neck and MRI brain NEGATIVE for acute process on admission * Lyme negative, B12 not deficient. UC negative. * Suspect combination of medications, undertreated hypothyroidism/afib, dementia w/ delirium and CHF with new reduction in EF Frequent orientation, maintain day/night schedules Acute metabolic delirium secondary to hypovolemia in the setting of dehydration on 05/23 --> improved with IV fluids > Obtained Head CT for completeness which was negative for acute process. History of chronic right temporoparietal infarct with encephalomalacia Worsening confusion 05/29, psych consulted - Seroquel 12.5mg QAM, 25mg HS and 12.5mg daily prn. - can continue lorazepam, but d/c if nightly confusion occurs - continue mirtazapine Family cannot take patient home safely - CM Following plan for D/c to [facility] when arranged (2) COVID-19: Plan: [employer] testing POSITIVE for COVID on 05/15 - CXR without consolidation, Lactate and procal WNL - Supportive care with incentive spirometry, Mucinex, Flonase inhaler, Duoneb, Xopenex -- no further respiratory symptoms - Off isolation precautions 05/25, no longer requiring 1:1 RN (3) Atrial fibrillation: Plan: Concerns for taking too much medication at home +/- prior dc'd sotalol - TSH elevated, Synthroid adjusted. - metoprolol for rate control - continue Eliquis BID A-fib/flutter with tachybrady syndrome / CHF / Cardiomyopathy/Hypertension - Cardiology consulted: unclear etiology but unlikely to be ischemic. - Echo noted new reduction in EF to 35-40%, mod-severe mitral regurgitation - Started on Jardiance/Entresto 05/14. Lisinopril discontinued > Follow-up with CHF clinic at discharge - No further events on tele monitor -- discontinued heart monitor 05/25 - Metoprolol decreased to 50mg BID 06/01 - BP improving -? seroquel increase lowering BP (4) Hypothyroidism: Plan: TSH elevated and elevated in February and INCREASED Synthroid 75mcg daily on 05/10/24 - Will need repeat TFT outpatient in 4 weeks from increased dose. Adjust as needed (5) Diabetes mellitus: Plan: A1c 6.9. Home medication: metformin 500mg BID (held) Started on Jardiance for cardiomyopathy as above Patient has gotten very minimal insulin with SSI - has been having occasional higher BSG readings, restart Metformin 500mg once a day (6) Left-sided visual neglect: Plan: from [facility] CVA Plan Updated daughter via phone call 05/25 and 05/23, 05/26, 05/27, 05/28, 06/01, 06/03 Updated granddaughter, Maria Antonia, daily via phone while mother, Harsha, was traveling Dispo: continued inpatient stay, awaiting placement VTE PPx: Eliquis BID CODE STATUS: Full code Admission and Anticipated Discharge Date Admission Date: May 06, 2024 Subjective Patient seen earlier this morning after walking in the halls. She reporting feeling very well after ambulating in the halls. wanted me to turn up her volume on her TV no other concerns Review of Systems Review of Systems: All systems reviewed & are unremarkable except as noted in Subjective Physical Exam Physical Exam: General: NAD, vitals as above, sitting up in the chair Pulm: breathing unlabored CV: well perfused, afib, rate controlled extremities: moves all extremities A&O x 2 Results & Data Results & Data Vital Signs (Past 12 Hours) Vital Signs Temp Pulse Resp BP Pulse Ox O2 Del Method 06/03/24 07:51 97.7 F 66 20 97/61 L 96 Room Air Laboratory Results POC BSG reviewed PG Care Time/CCT Total # of Minutes Spent Total Time Spent with Patient: Total time spent is greater than 50% in coordination of care (as documented) at patient's floor/unit and/or counseling patient: Coding Level of Care Code 15322 SUB INP/OBS CARE 2/35MIN Diagnoses Confusion R41.0 COVID-19 U07.1 Atrial fibrillation I48.91 Hypothyroidism E03.9 Diabetes mellitus E11.9 Left-sided visual neglect R41.4
[2024-06-03] MEDS: metFORMIN HCL 500 MG TAB PO SCH (16:52)
[2024-06-04] MEDS ORDERED: ONDANSETRON INJ 2 MG/ML 2 ML VIAL IV PRN (00:29)
[2024-06-04] MEDS ORDERED: ACETAMINOPHEN 500 MG TAB PO PRN (00:29)
[2024-06-04] MEDS ORDERED: DEXTROSE 50% 50 ML SYRINGE IV PRN (00:30)
[2024-06-04] MEDS ORDERED: GLUCAGON FOR INJ 1 MG VIAL SQ PRN (00:30)
[2024-06-04] MEDS ORDERED: CARBOHYDRATES FOR HYPOGLYCEMIA PO PRN (00:30)
[2024-06-04] MEDS ORDERED: GLUCOSE 40% GEL 15 GM TUBE PO PRN (00:30)
[2024-06-04] MEDS ORDERED: GLUCOSE 10 TAB/TUBE PO PRN (00:30)
--- NOTE | 2024-06-04 13:33 | Hospitalist Progress Note ---
Date of Service June 04, 2024 Assessment & Plan (1) Confusion: Plan: Multifactorial - Possible toxic encephalopathy due to drugs * Presented with increased confusion and hallucinations over the week leading to admission in the setting of CHRONIC cognitive impairment/dementia wandering outside looking for granddaughter. Also reports seeing who ~4 yrs ago. Hx MCA CVA. CT head/CTA head/neck and MRI brain NEGATIVE for acute process on admission * Lyme negative, B12 not deficient. UC negative. * Suspect combination of medications, undertreated hypothyroidism/afib, dementia w/ delirium and CHF with new reduction in EF Frequent orientation, maintain day/night schedules Acute metabolic delirium secondary to hypovolemia in the setting of dehydration on 05/23 --> improved with IV fluids > Obtained Head CT for completeness which was negative for acute process. History of chronic right temporoparietal infarct with encephalomalacia Worsening confusion 05/29, psych consulted - Seroquel 12.5mg QAM, 25mg HS and 12.5mg daily prn. - can continue lorazepam, but d/c if nightly confusion occurs - continue mirtazapine Family cannot take patient home safely - CM Following plan for D/c to [facility] when arranged (2) COVID-19: Plan: [employer] testing POSITIVE for COVID on 05/15 - CXR without consolidation, Lactate and procal WNL - Supportive care with incentive spirometry, Mucinex, Flonase inhaler, Duoneb, Xopenex -- no further respiratory symptoms - Off isolation precautions 05/25, no longer requiring 1:1 RN (3) Atrial fibrillation: Plan: Concerns for taking too much medication at home +/- prior dc'd sotalol - TSH elevated, Synthroid adjusted. - metoprolol for rate control - continue Eliquis BID A-fib/flutter with tachybrady syndrome / CHF / Cardiomyopathy/Hypertension - Cardiology consulted: unclear etiology but unlikely to be ischemic. - Echo noted new reduction in EF to 35-40%, mod-severe mitral regurgitation - Started on Jardiance/Entresto 05/14. Lisinopril discontinued > Follow-up with CHF clinic at discharge - No further events on tele monitor -- discontinued heart monitor 05/25 - Metoprolol decreased to 50mg BID 06/01 - BP improving -? seroquel increase lowering BP (4) Hypothyroidism: Plan: TSH elevated and elevated in February and INCREASED Synthroid 75mcg daily on 05/10/24 - Will need repeat TFT outpatient in 4 weeks from increased dose. Adjust as needed (5) Diabetes mellitus: Plan: A1c 6.9. Home medication: metformin 500mg BID (held) Started on Jardiance for cardiomyopathy as above Patient has gotten very minimal insulin with SSI - has been having occasional higher BSG readings, restart Metformin 500mg once a day 06/03 (6) Left-sided visual neglect: Plan: from [facility] CVA Plan Updated daughter via phone call 05/25 and 05/23, 05/26, 05/27, 05/28, 06/01, 06/03 Updated granddaughter, Maria Antonia, daily via phone while mother, Harsha, was traveling Dispo: continued inpatient stay, awaiting placement VTE PPx: Eliquis BID CODE STATUS: Full code Admission and Anticipated Discharge Date Admission Date: May 06, 2024 Subjective Patient seen walking the halls with therapy and then evaluated in her room sitting in her chair. Happy with walking in halls. Lots of new things to see with the new view. Provided her with word searches to occupy her time. no acute complaints Review of Systems Review of Systems: All systems reviewed & are unremarkable except as noted in Subjective Physical Exam Physical Exam: General: NAD, vitals as above, sitting up in the chair Pulm: breathing unlabored CV: well perfused, afib, rate controlled extremities: moves all extremities A&O x 2 Results & Data Results & Data Vital Signs (Past 12 Hours) Vital Signs Temp Pulse Resp BP Pulse Ox O2 Del Method 06/04/24 07:43 97.7 F 72 16 102/64 95 Room Air 06/04/24 07:17 Room Air PG Care Time/CCT Total # of Minutes Spent Total Time Spent with Patient: Total time spent is greater than 50% in coordination of care (as documented) at patient's floor/unit and/or counseling patient: Coding Level of Care Code 95051 SUB INP/OBS CARE 09/04MIN Diagnoses Confusion R41.0 COVID-19 U07.1 Atrial fibrillation I48.91 Hypothyroidism E03.9 Diabetes mellitus E11.9 Left-sided visual neglect R41.4
[2024-06-04] MEDS: MELATONIN 3 MG TAB PO PRN (20:29)
[2024-06-05] MEDS: METOPROLOL TARTRATE 50 MG TAB PO SCH (08:57)
--- NOTE | 2024-06-05 11:13 | Hospitalist Progress Note ---
Date of Service June 05, 2024 Assessment & Plan (1) Confusion: Plan: Multifactorial - Possible toxic encephalopathy due to drugs * Presented with increased confusion and hallucinations over the week leading to admission in the setting of CHRONIC cognitive impairment/dementia wandering outside looking for granddaughter. Also reports seeing who ~4 yrs ago. Hx MCA CVA. CT head/CTA head/neck and MRI brain NEGATIVE for acute process on admission * Lyme negative, B12 not deficient. UC negative. * Suspect combination of medications, undertreated hypothyroidism/afib, dementia w/ delirium and CHF with new reduction in EF Frequent orientation, maintain day/night schedules Acute metabolic delirium secondary to hypovolemia in the setting of dehydration on 05/23 --> improved with IV fluids > Obtained Head CT for completeness which was negative for acute process. History of chronic right temporoparietal infarct with encephalomalacia Worsening confusion 05/29, psych consulted - Seroquel 12.5mg QAM, 25mg HS and 12.5mg daily prn. - can continue lorazepam, but d/c if nightly confusion occurs - continue mirtazapine Family cannot take patient home safely - CM Following plan for D/c to [facility] when arranged (2) COVID-19: Plan: [employer] testing POSITIVE for COVID on 05/15 - CXR without consolidation, Lactate and procal WNL - Supportive care with incentive spirometry, Mucinex, Flonase inhaler, Duoneb, Xopenex -- no further respiratory symptoms - Off isolation precautions 05/25, no longer requiring 1:1 RN (3) Atrial fibrillation: Plan: Concerns for taking too much medication at home +/- prior dc'd sotalol - TSH elevated, Synthroid adjusted. - metoprolol for rate control - continue Eliquis BID A-fib/flutter with tachybrady syndrome / CHF / Cardiomyopathy/Hypertension - Cardiology consulted: unclear etiology but unlikely to be ischemic. - Echo noted new reduction in EF to 35-40%, mod-severe mitral regurgitation - Started on Jardiance/Entresto 05/14. Lisinopril discontinued > Follow-up with CHF clinic at discharge - No further events on tele monitor -- discontinued heart monitor 05/25 - Metoprolol decreased to 50mg BID 06/01 - continue to have lows/medication held, lowered to 50mg AM and 25mg HS 06/05 -? seroquel increase lowering BP (4) Hypothyroidism: Plan: TSH elevated and elevated in February and INCREASED Synthroid 75mcg daily on 05/10/24 - Will need repeat TFT in 4 weeks from increased dose. Adjust as needed - ordered for AM (5) Diabetes mellitus: Plan: A1c 6.9. Home medication: metformin 500mg BID (held) Started on Jardiance for cardiomyopathy as above Metformin 500mg once daily restarted 06/03 with improvement of BSG and no longer needing SSI. (6) Left-sided visual neglect: Plan: from [facility] CVA Plan Updated daughter via phone call 05/25 and 05/23, 05/26, 05/27, 05/28, 06/01, 06/03 Updated granddaughter, Maria Antonia, daily via phone while mother, Harsha, was traveling Dispo: continued inpatient stay, awaiting placement VTE PPx: Eliquis BID CODE STATUS: Full code Admission and Anticipated Discharge Date Admission Date: May 06, 2024 Subjective patient seen lying in bed, sad today because she reports her family got rid of her dog and cat otherwise no acute physical complaints asymptomatic from BP Review of Systems Review of Systems: All systems reviewed & are unremarkable except as noted in Subjective Physical Exam Physical Exam: General: NAD, vitals as above, sitting up in the chair Pulm: breathing unlabored CV: well perfused, afib, rate controlled extremities: moves all extremities A&O x 2 Results & Data Results & Data Vital Signs (Past 12 Hours) Vital Signs Temp Pulse Resp BP Pulse Ox O2 Del Method 06/05/24 08:23 92/59 L 06/05/24 07:19 97.5 F L 61 16 93/63 L 99 Room Air PG Care Time/CCT Total # of Minutes Spent Total Time Spent with Patient: Total time spent is greater than 50% in coordination of care (as documented) at patient's floor/unit and/or counseling patient: Coding Level of Care Code 18208 SUB INP/OBS CARE 2/35MIN Diagnoses Confusion R41.0 COVID-19 U07.1 Atrial fibrillation I48.91 Hypothyroidism E03.9 Diabetes mellitus E11.9 Left-sided visual neglect R41.4
[2024-06-05] MEDS: METOPROLOL TARTRATE 25 MG TAB PO SCH (20:17)
[2024-06-06 09:45] LABS: Thyroid Stimulating Hormone 5.854 uIu/ml (0.300-4.500)
[2024-06-06 10:20] LABS: T4 Free Thyroxine 1.27 ng/dl (0.61-1.60)
--- NOTE | 2024-06-06 11:28 | Hospitalist Progress Note ---
Date of Service June 06, 2024 Assessment & Plan (1) Confusion: Plan: Multifactorial - Possible toxic encephalopathy due to drugs * Presented with increased confusion and hallucinations over the week leading to admission in the setting of CHRONIC cognitive impairment/dementia wandering outside looking for granddaughter. Also reports seeing who ~4 yrs ago. Hx MCA CVA. CT head/CTA head/neck and MRI brain NEGATIVE for acute process on admission * Lyme negative, B12 not deficient. UC negative. * Suspect combination of medications, undertreated hypothyroidism/afib, dementia w/ delirium and CHF with new reduction in EF Frequent orientation, maintain day/night schedules Acute metabolic delirium secondary to hypovolemia in the setting of dehydration on 05/23 --> improved with IV fluids > Obtained Head CT for completeness which was negative for acute process. History of chronic right temporoparietal infarct with encephalomalacia Worsening confusion 05/29, psych consulted - Seroquel 12.5mg QAM, 25mg HS and 12.5mg daily prn. - can continue lorazepam, but d/c if nightly confusion occurs - continue mirtazapine Family cannot take patient home safely - CM Following plan for D/c to [facility] tomorrow 06/07 (2) COVID-19: Plan: [employer] testing POSITIVE for COVID on 05/15 - CXR without consolidation, Lactate and procal WNL - Supportive care with incentive spirometry, Mucinex, Flonase inhaler, Duoneb, Xopenex -- no further respiratory symptoms - Off isolation precautions 05/25, no longer requiring 1:1 RN (3) Atrial fibrillation: Plan: Concerns for taking too much medication at home +/- prior dc'd sotalol - TSH elevated, Synthroid adjusted. - metoprolol for rate control - continue Eliquis BID A-fib/flutter with tachybrady syndrome / CHF / Cardiomyopathy/Hypertension - Cardiology consulted: unclear etiology but unlikely to be ischemic. - Echo noted new reduction in EF to 35-40%, mod-severe mitral regurgitation - Started on Jardiance/Entresto 05/14. Lisinopril discontinued > Follow-up with CHF clinic at discharge - No further events on tele monitor -- discontinued heart monitor 05/25 - Metoprolol decreased to 50mg BID 06/01 - continue to have lows/medication held, lowered to 50mg AM and 25mg HS 06/05 (4) Hypothyroidism: Plan: TSH elevated and elevated in February and INCREASED Synthroid 75mcg daily on 05/10/24 - repeat 4 weeks later, still with elevated TSH but normal T4, patient asymptomatic, will not further increase dose at this time. (5) Diabetes mellitus: Plan: A1c 6.9. Home medication: metformin 500mg BID (held) Started on Jardiance for cardiomyopathy as above Metformin 500mg once daily restarted 06/03 with improvement of BSG and no longer needing SSI. (6) Left-sided visual neglect: Plan: from [facility] CVA Plan Updated daughter via phone call 05/25 and 05/23, 05/26, 05/27, 05/28, 06/01, 06/03 Updated granddaughter, Maria Antonia, daily via phone while mother, Harsha, was traveling Dispo: continued inpatient stay, awaiting placement VTE PPx: Eliquis BID CODE STATUS: Full code Admission and Anticipated Discharge Date Admission Date: May 06, 2024 Subjective Patient seen lying in bed, excited to leave tomorrow. encouraged her to make friends at the new facility. No acute complaints. Review of Systems Review of Systems: All systems reviewed & are unremarkable except as noted in Subjective Physical Exam Physical Exam: General: NAD, vitals as above, lying in bed Pulm: breathing unlabored, clear to auscultation CV: well perfused, afib, rate controlled extremities: moves all extremities A&O x 2 Results & Data Results & Data Vital Signs (Past 12 Hours) Vital Signs Temp Pulse Resp BP Pulse Ox O2 Del Method 06/06/24 07:58 97.5 F L 66 16 107/70 96 Room Air Laboratory Results TSH reviewed PG Care Time/CCT Total # of Minutes Spent Total Time Spent with Patient: Total time spent is greater than 50% in coordination of care (as documented) at patient's floor/unit and/or counseling patient: Coding Level of Care Code 63668 SUB INP/OBS CARE 2/35MIN Diagnoses Confusion R41.0 COVID-19 U07.1 Atrial fibrillation I48.91 Hypothyroidism E03.9 Diabetes mellitus E11.9 Left-sided visual neglect R41.4
--- NOTE | 2024-06-07 10:10 | Discharge Summary ---
Discharge Summary Date of Service June 07, 2024 Principal Dx & Hospital Course #1 = Principal Diagnosis (1) Confusion: Multifactorial - Possible toxic encephalopathy due to drugs * Presented with increased confusion and hallucinations over the week leading to admission in the setting of CHRONIC cognitive impairment/dementia wandering outside looking for granddaughter. Also reports seeing who ~4 yrs ago. Hx MCA CVA. CT head/CTA head/neck and MRI brain NEGATIVE for acute process on admission * Lyme negative, B12 not deficient. UC negative. * Suspect combination of medications, undertreated hypothyroidism/afib, dementia w/ delirium and CHF with new reduction in EF Frequent orientation, maintain day/night schedules Acute metabolic delirium secondary to hypovolemia in the setting of dehydration on 05/23 --> improved with IV fluids > Obtained Head CT for completeness which was negative for acute process. History of chronic right temporoparietal infarct with encephalomalacia Worsening confusion 05/29, psych consulted - Seroquel 12.5mg QAM, 25mg HS and 12.5mg daily prn. - can continue lorazepam, but consider discontinuing medication if patient continues to experience overnight confusion. - continue mirtazapine Patient discharged to [place] 06/07. (2) COVID-19: [employer] testing POSITIVE for COVID on 05/15 - CXR without consolidation, Lactate and procal WNL - Off isolation precautions 05/25, no longer requiring 1:1 RN (3) Atrial fibrillation: Concerns for taking too much medication at home +/- prior dc'd sotalol - TSH elevated, Synthroid adjusted. - metoprolol for rate control - continue Eliquis BID A-fib/flutter with tachybrady syndrome / CHF / Cardiomyopathy/Hypertension - Cardiology consulted: unclear etiology but unlikely to be ischemic. - Echo noted new reduction in EF to 35-40%, mod-severe mitral regurgitation - Started on Jardiance/Entresto 05/14. Lisinopril discontinued > Follow-up with CHF clinic at discharge -Metoprolol dose adjustment to 50mg AM and 25mg HS on 06/05, continue upon discharge. (4) Hypothyroidism: TSH elevated and elevated in February and INCREASED Synthroid 75mcg daily on 05/10/24 - repeat 4 weeks later, still with elevated TSH but normal T4, patient asymptomatic, will not further increase dose at this time. -follow up outpatient with PCP for continued monitoring of TSH. (5) Diabetes mellitus: A1c 6.9. Home medication: metformin 500mg BID Started on Jardiance for cardiomyopathy Metformin resumed 06/03. (6) Left-sided visual neglect: from [facility] CVA Plan Updated daughter with discharge instructions 06/07 via phone. All questions answered Admission HPI Per Admitting Provider 69 y/o with a PMHx of right CVA with left sided deficits, anxiety, hypothyroidism, DM, and a fib brought here by family for worsening confusion. Patient with increased memory issues and hallucinations over the last week. Found wandering outside looking for her granddaughter, but thinking of her as a small child. Has also been seeing her who 4 years ago. Patient does not report these to me during our interview. She is unsure why she was brought in to the hospital and would like to go home. Patient lives alone and family is involved, but no one can be with her all of the time. Patient has been admitted previously for accidental overdose as she will take her medications inappropriately. She does have the pill packs, but she may still be taking more of her medication than prescribed. Patient denies any fevers, chills, CP, SOB, abdominal pain, headaches, vision changes, nausea/vomiting, constipation, dysuria, urinary frequency. The granddaughter reports that she has long standing left sided weakness as a sequelae of her prior stroke. No new neurological deficits. Does have memory issues, but believes that the hallucinations are relatively new. Is concerned that she took more of her medicine than she should have. Discharge Exam Constitutional WD/WN, vitals as above Eyes PERRL, conjunctivae normal, anicteric sclerae Respiratory breathing unlabored Cardiovascular well perfused Skin no rashes, warm and dry Discharge Plan Discharge Items Patient Disposition: Personal Half-Way Reason For Visit: CONFUSION Discharge Diagnosis: altered mental status Activity: Resume your previous activity Driving/Machine Use: do not drive Weightbearing: Full weightbearing Non-emergency contact: Primary Care Provider Call non-emergency contact if: you have any medication questions and your symptoms worsen Follow-up/Referrals: Keanu Lindo MD [Primary Care Provider] - Diet: Carb Consistent or DM2 and Heart Healthy Addtl Attending Provider Instructions: Ms. Cifuentesr, You were hospitalized after periods of confusion, caused by a multitude of factors. We have adjusted your medications and you have done well with this. Treated for COVID and out of isolation for many days. [facility]. I hope everything goes well for you. Thank you for allowing us to participate in your care! Med Changes: * Metformin decreased to once a day, Jardiance added * Metoprolol decreased to 50mg qAM and 25mg qHS * Lisinopril stopped, entresto added * ativan at night * seroquels 25mg at night, 12.5mg in the morning added * zoloft stopped * synthroid dose increased Pending Studies at Discharge: No Stand-Alone Forms: My [facility] [employer], Smoking Cessation Skilled Items Patient informed of condition?: Yes DNR: No Discharge Level of Care: Other Communicable Disease: No Discharge Prognosis: Stable Lines: None Urinary Catheter: No Medications and DC Order Prescriptions: New metoprolol tartrate 50 mg Tablet 50 mg PO QAM 90 Days Qty: 90 0RF metoprolol tartrate 25 mg Tablet 25 mg PO HS 90 Days Qty: 90 0RF Entresto 24-26 mg Tablet 1 tab PO BID 90 Days Qty: 180 0RF quetiapine 25 mg Tablet 25 mg PO HS 90 Days Qty: 90 0RF quetiapine 25 mg Tablet 12.5 mg PO QAM 90 Days Qty: 45 0RF lorazepam 0.5 mg Tablet 0.25 mg PO HS 30 Days Qty: 15 0RF magnesium chloride [Mag 64] 64 mg Tablet,Delayed Release (Dr/Ec) 64 mg PO BID 90 Days Qty: 180 0RF Jardiance 10 mg Tablet 10 mg PO DAILY 90 Days Qty: 90 0RF metformin 500 mg Tablet 500 mg PO DAILYBD 90 Days Qty: 90 0RF levothyroxine [Synthroid] 75 mcg Tablet 75 mcg PO DAILYBB 90 Days Qty: 90 0RF Continued (DME) blood-glucose meter [Blood Glucose Monitoring] Kit See Rx Instructions .ROUTE .MEDSUPPLY Qty: 1 0RF Rx Instructions: test TID and PRN (DME) lancets [OneTouch UltraSoft Lancets] Misc See Rx Instructions .Route Qty: 100 3RF Rx Instructions: As directed (DME) Blood Glucose Test Strip See Rx Instructions .ROUTE .MEDSUPPLY Qty: 100 3RF Rx Instructions: One Touch Ultra Blue Test Strip; test TID (DME) pen needle, diabetic [Unifine Pentips Plus] 31 gauge x 5/16" needle See Dose Instructions .ROUTE .MEDSUPPLY Qty: 100 3RF Dose Instruction: As directed Rx Instructions: Test once daily cholecalciferol (vitamin D3) 1,000 unit Tablet 1,000 unit PO DAILY magnesium oxide 400 mg magnesium Tablet 400 mg PO BID fish oil-dha-epa 1,200-144-216 mg Capsule 1 cap PO AMHS Glucosamine-Chondroitin Complx Capsule 1 cap PO BID Centrum Silver Women 8 mg iron-400 mcg-50 mcg Tablet 1 tab PO .DAILY AT NOON aspirin 81 mg Tablet,Delayed Release (Dr/Ec) 81 mg PO .DAILY @ NOON 90 Days Qty: 90 0RF simvastatin 40 mg tablet 40 mg PO HS Qty: 90 0RF mirtazapine 15 mg tablet 15 mg PO HS 90 Days Qty: 90 0RF Eliquis 5 mg tablet 5 mg PO BID Qty: 180 0RF Changed pantoprazole 40 mg tablet,delayed release (DR/EC) 40 mg PO QAM 90 Days Qty: 90 0RF Discontinued metformin 500 mg tablet 500 mg PO BID Qty: 60 5RF buspirone 7.5 mg tablet 7.5 mg PO AMHS levothyroxine 50 mcg tablet 50 mcg PO DAILYBB lisinopril 2.5 mg tablet 2.5 mg PO QAM metoprolol tartrate 100 mg tablet 100 mg PO AMHS sertraline 100 mg tablet 100 mg PO QPM Slow-Mag 64 mg Tablet Extended Release 64 mg PO BID Discharge Orders: Discharge Order (Routine); Ordered 06/07/24 Ordered By: Shirin Abebe/Other Patient Handouts: Managing Type 2 Diabetes Admission Data Admit Date/Time: 05/06/24 11:45 Attending Provider: Dread Singer Admit Provider: Teresa Almodovar Primary Care Provider: Keanu Lindo V. Other Providers: [place] [facility]; Shivam Carter; Ricardo Xiao; Nicolas Felix Other Interventions: Discharge Summary Assessment (RN) Last Done: 06/07/24 14:56 Hospital Stay Data Consultations 05/04/24 20:40 ED Decision to Admit Stat 05/10/24 10:27 Consult Cardiology Routine 05/16/24 22:35 Consult Patient Rep [Consult Patient Services] Routine 05/29/24 09:05 Consult Psychiatry Routine Diagnostic Imagining Performed 05/04/24 17:48 CT head/brain wo con Stat 05/04/24 21:45 MRI Brain [MR brain wo/w con] Urgent 05/04/24 22:47 CTA head wo/w [CT angio head wo/w] Urgent CTA neck wo/w con [CT angio neck wo/w con] Urgent 05/23/24 11:32 CT head/brain wo con Stat Pending Results Patient Have Any Pending Studies at Discharge: No Discharge Instructions Given to Patient (Per Discharging Provider) Ms. Lindquist, You were hospitalized after periods of confusion, caused by a multitude of f actors. We have adjusted your medications and you have done well with this. Treated for COVID and out of isolation for many days. You will going to [facility] rehab now. I hope everything goes well for you. Thank you for allowing us to participate in your care! Med Changes: * Metformin decreased to once a day, Jardiance added * Metoprolol decreased to 50mg qAM and 25mg qHS * Lisinopril stopped, entresto added * ativan at night * seroquels 25mg at night, 12.5mg in the morning added * zoloft stopped * synthroid dose increased Supervising Physician Co-Signing Physician Notes During face to face encounter, I obtained a brief physical examination, discussed hospital stay with patient and discharge instructions with patient. I discussed discharge plan of care with SEVEN Sanchez. I reviewed above note and agree with it except for the following: You were hospitalized with COVID 19. You also had periods of confusion. Your medication were changed and your clinical presentation improved. Total Time Total Time Spent Total Time Spent (In Minutes): 40 Total Time Includes: Examination of the Patient, Discharge Planning and Medication Reconciliation Coding Level of Care Code 77771 INP/OBS DISCH >30 MIN Diagnoses Confusion R41.0 COVID-19 U07.1 Atrial fibrillation I48.91 Hypothyroidism E03.9 Diabetes mellitus E11.9 Left-sided visual neglect R41.4
[2024-06-07 14:51] VITALS: BP 99/67; PULSE 61; RESP 16; TEMP 97.2; O2SAT 100
== END 2024-06-07 15:40 | disposition home or self-care (01) | DRG 917 ==
LOC: ED 17:28 → 2N 17:28 → SUATTDRO 21:51 → 2N 23:02 → SUATTDRO 05-06 11:45 → 2W 05-15 20:01 → 3W 06-03 15:57